=== PATIENT | female | born 1995 | race Caucasian/White ===

== ENCOUNTER 2023-01-08 12:28 | Outpatient (OUT) | payer BC, SELFPAY ==
--- NOTE | 2023-01-08 13:00 | US_ITS ---
[address] [address] Patient Name: CURRY FERRARA MRN: [id number] date: 1995 Sex: F Assigned Patient Location: US Current Patient Location: US Accession/Order Number: [id number] Exam Date: 01/08/2023 12:30 Report Date: 01/08/2023 15:22 At the request of: JACLYN DODSON Procedure: US OB transvaginal EXAMINATION: US OB transvaginal HISTORY: DATING COMPARISON: No relevant comparison available. FINDINGS: [place] intrauterine gestation Gestational sac: 4.7 cm, 10 weeks 2 days CRL: 2.3 cm, 9 weeks 0 days Yolk sac: 4.8 mm cardiac activity: Not observed Cervix: Closed, 4.8 cm The uterus is normal, anteverted, anteflexed The ovaries are normal in appearance Abnormal contour of the anterior abdomen Clinical age: 9 weeks 5 days Clinical MIRIAN: 08/08/2023 Ultrasound age: 9 weeks 5 days Ultrasound MIRIAN: 08/08/[address] Dodson by the technologist US/US OB transvaginal IMPRESSION: No cardiac activity consistent with a demise Electronically authenticated by: DEANN YUEN Date: 01/08/2023 15:22
--- OUTSIDE RECORDS SUMMARY | 2023-02-10 20:00 | XMS_ITS | CCD ---
Author Name Unknown Address [address] [place] [address] Organization [facility] Care Team Providers Care Order Selector Name Role Phone Omer Mendoza Primary Care Physician [phone] Cristian Gross Attending Unavailable Omer Mendoza Attending Unavailable Cristian Gross Attending Unavailable Cristian Gross Admitting Unavailable XI LONG Attending Ariana e Cristian Gross Attending Unavailable Allergies Allergy Classification Reported Allergen(s) Allergy Type Date of Onset Reaction(s) Facility (1 source) No Known Medication Allergies; Translations: [No Known Medication Allergies] Propensity to adverse reactions (disorder) [facility] Repository Medications Current Medications Medication Drug Class(es) Dates Sig (Normalized) Sig (Original) cephalexin 500 mg oral capsule (4 sources) Cephalosporin Antibacterial Start: 10-18-2022 End: 10-25-2022 take 1 capsule by mouth every eight hours Keflex 500 mg Cap 500 mg = 1 cap(s), Oral, q8hr, X 7 day(s), # 21 cap(s), Refills(s) 0, Pharmacy: [facility]/pharmacy #[id number], 158, cm, 10/18/22 11:02:00 EDT, Height/Length Dosing, 75.2, kg, 10/18/22 11:02:00 EDT, Weight Dosing Start Date: 10/18/22 Stop Date: 10/25/22 Status: Ordered sulfamethoxazole 800 mg / trimethoprim 160 mg oral tablet (4 sources) Dihydrofolate Reductase Inhibitor Antibacterial, Sulfonamide Antimicrobial Start: 10-18-2022 End: 10-25-2022 Bactrim D.S. 800 mg-160 mg Tab 1 tab(s), Oral, BID for 7 day(s), 14 tab(s), Refill(s) 0, [id number], 158, cm, 10/18/22 11:02:00 EDT, Height/Length Dosing, 75.2, kg, 10/18/22 11:02:00 EDT, Weight Dosing Start Date: 10/18/22 Stop Date: 10/25/22 Status: Ordered Problems Problem Classification Problem Date Documented Da te Episodic/Chronic Inflammatory diseases of female pelvic organs (4 sources) Abscess of vulva; Translations: [Abscess of vulva] Onset: 10-18-2022 Episodic Other nutritional; endocrine; and metabolic disorders (3 sources) Obese class I; Translations: [Body mass index (BMI) 30.0-30.9, adult] Onset: 10-18-2022 Chronic Other nutritional; endocrine; and metabolic disorders (1 source) Body mass index 30+ - obesity 10-22-2022 Chronic Results Test Name Value Interpretation Reference Range Facil ity Auth for Release of Medical Recordson 11-19-2022 Auth for Release of Medical Records [id number] Normal [facility] Family Medicine Office/Clini c Noteon 10-22-2022 Family Medicine Office/Clinic Note Chief Complaint EST- f/u for abscess HPI Staff Curry is a 27 year old female here for a 2 day follow up- pt say Cristian abscess on left side of vagina abscess is way better packing fell off last night no current complaints History of Present Illness Reviewed and agree with above documented HPI by medical laboratory technologist. Portions of this record may have been created with voice recognition artificial intelligence software, specifically [employer], [employer] and or [employer]. Substitutions may have occurred due to the inherent limitations of voice recognition and artificial intelligence software. Patient is a 27-year-old female presents to convenient care, for follow-up appointment, patient was seen on October 20, 2022, 2 days ago here in convenient care, for an I&D abscess of a left vulva/Bartholin's cyst, patient is currently on Bactrim DS and Keflex, had a packing placed, was informed that the packing will probably fall off on its own, patient states she has been doing fine, has not noticed any additional drainage or bleeding, pain has gone down, states she is feeling much better. Patient denies any fevers, chills, nausea, vaginal pain, vaginal discharge, vaginal bleeding, pelvic pain, abdominal pain, diarrhea, or UTI symptoms. Review of Systems PHQ Score Initial Depression Screen Score: 0 Physical Exam Vitals & Measurements T: 36.7 ?C(Oral) HR: 95(Peripheral) BP: 106/68 SpO2: 99% HT: 62 in HT: 158 cm WT: 74.4 kg WT: 163.68 lb BMI: 29.8 General: Well developed, well nourished, in no acute distress patient does not appear ill or septic, no respiratory disorder, answers questions appropriately and in complete sentences, and follows commands appropriately. Head/Face: Normocephalic/atraumatic no upper respiratory infection. Lungs: Normal respiratory effort and clear to auscultation throughout, no wheezing, no rales Cardio: regular rate and rhythm, no murmur Pulses: Normal capillary refill Abdomen: soft, nondistended, BS normal and active x4. Denies tenderness with palpation, no guarding, rebound, acute abdomen, suprapubic pressure, left or right CVA tenderness, or lumbar back pain on examination. : RT Yarelis/MA was healthcare educator during the exam. Status post I&D of the left vulva healing well, there is no packing in place, some discomfort on exam, no worsening pain, there is no red streaks, drainage, bleeding, or cellulitis is noted. No other abscesses are noted. It is nonfluctuant. Between 2 to 3 cm. Patient tolerated exam well. The remaining exam was within normal limits. No vaginal vault or cervical swabs were indicated at this time. Extremity: No clubbing, cyanosis, edema, or deformity, with normal ROM in both upper and lower bilateral extremities Neurologic: Grossly normal Skin: No rashes, ulcerations, or suspicious lesions Lymph Nodes: no lad Mental Status: Alert and oriented x3. Normal mood and affect Assessment/Plan 27-year-old female presented to [facility], for status post I&D abscess of left vulva, that was done 2 days ago, here in the convenient care, patient had a packing in place, follow-up, patient had no complaints of pain, I&D site was healing well, no signs of gastric cellulitis, additional drainage or bleeding, some discomfort on exam, but not tenderness. Patient tolerated procedure well. The remaining exam was within normal limits. Patient was instructed to continue taking her Bactrim and Keflex as previously prescribed, counter pain medication as needed, and continue with wound care instructions. Patient agreed with the plan. 1. Abscess of vulva (N76.4: Abscess of vulva) See above 2. BMI 30.0-30.9,adult (Z68.30: Body mass index [BMI] 30.0-30.9, adult) The standard range for ages 18 and older is >=18.5 and < 25 kg/m2. Your BMI today was above this range, this falls in the overweight to obese category and there are medical benefits to weight loss. We can offer counselling, referral, and/or medical support in addressing this problem. Your BMI and weight management will be followed at subsequent visits. Orders: Body Mass Index (BMI) documented 3008F Follow-up With When Contact Information Omer Mendoza MD, [facility], MED Additional Instructions: Patient Education BMI for Adults Skin Abscess, Rnrt-aa-Cxjh Problem List/Past Medical History Ongoing Abscess of vulva BMI 30.0-30.9,adult Historical No qualifying data Medications Bactrim D.S. 800 mg-160 mg Tab, 1 tab(s), Oral, BID Keflex 500 mg Cap, 500 mg= 1 cap(s), Oral, q8hr Allergies No Known Allergies No Known Medication Allergies Social History Tobacco - Denies Tobacco Use, 10/18/2022 Never (less than 100 in lifetime) Tobacco Use:. Never Smokeless Tobacco Use:., 10/20/2022 Immunizations Vaccine Date Status Comments SARS-CoV-2 mRNA (miya 5y-11y) vac - Not Given Postpone due to refusal Normal [facility] Comment on above: Result Comment: Elec tronically Signed By: MERCEDES LAYNE, ESTRELLA\.br\Date and Time Signed: 10/22/22 09:40 EDT Patient Educationon 10-23-19 Patient Education Infectious Disease Skin Abscess A skin abscess is an infected area of your skin that contains pus and other material. An abscess can happen in any part of your body. Some abscesses break open (rupture) on their own. Most continue to get worse unless they are treated. The infection can spread deeper into the body and into your blood, which can make you feel sick. A skin abscess is caused by germs that enter the skin through a cut or scrape. It can also be caused by blocked oil and sweat glands or infected hair follicles. This condition is usually treated by: ? Draining the pus. ? Taking antibiotic medicines. ? Placing a warm, wet washcloth over the abscess. Follow these instructions at home: Medicines ? Take qwca-hug-hzfezlo and prescription medicines only as told by your doctor. ? If you were prescribed an antibiotic medicine, take it as told by your doctor. Do not stop taking the antibiotic even if you start to feel better. Abscess care ? If you have an abscess that has not drained, place a warm, clean, wet washcloth over the abscess several times a day. Do this as told by your doctor. ? Follow instructions from your doctor about how to take care of your abscess. Make sure you: ? Cover the abscess with a bandage (dressing). ? Change your bandage or gauze as told by your doctor. ? Wash your hands with soap and water before you change the bandage or gauze. If you cannot use soap and water, use hand satellite tv technician. ? Check your abscess every day for signs that the infection is getting worse. Check for: ? More redness, swelling, or pain. ? More fluid or blood. ? Warmth. ? More pus or a bad smell. General instructions ? To avoid spreading the infection: ? Do not share personal care items, towels, or hot tubs with others. ? Avoid making udmb-og-sism contact with other people. ? Keep all follow-up visits as told by your doctor. This is important. Contact a doctor if: ? You have more redness, swelling, or pain around your abscess. ? You have more fluid or blood coming from your abscess. ? Your abscess feels warm when you touch it. ? You have more pus or a bad smell coming from your abscess. ? Your muscles ache. ? You feel sick. Get help right away if: ? You have very bad (severe) pain. ? You see red streaks on your skin spreading away from the abscess. ? You see redness that spreads quickly. ? You have a fever or chills. Summary ? A skin abscess is an infected area of your skin that contains pus and other material. ? The abscess is caused by germs that enter the skin through a cut or scrape. It can also be caused by blocked oil and sweat glands or infected hair follicles. ? Follow your doctor's instructions on caring for your abscess, taking medicines, preventing infections, and keeping follow-up visits. This information is not intended to replace advice given to you by your health care provider. Make sure you discuss any questions you have with your health care provider. Document Revised: 11/18/2021 Document Reviewed: 11/18/2021 [employer] Patient Education ? 2022 [employer]. Nutrition BMI for Adults What is BMI? Body mass index (BMI) is a number that is calculated from a person's weight and height. BMI can help estimate how much of a person's weight is composed of fat. BMI does not measure body fat directly. Rather, it is an alternative to procedures that directly measure body fat, which can be difficult and expensive. BMI can help identify people who may be at higher risk for certain medical problems. What are BMI measurements used for? BMI is used as a screening tool to identify possible weight problems. It helps determine whether a person is obese, overweight, a healthy weight, or underweight. BMI is useful for: ? Identifying a weight problem that may be related to a medical condition or may increase the risk for medical problems. ? Promoting changes, such as changes in diet and exercise, to help reach a healthy weight. BMI screening can be repeated to see if these changes are working. How is BMI calculated? BMI involves measuring your weight in relation to your height. Both height and weight are measured, and the BMI is calculated from those numbers. This can be done either in [place] ([place] or metric measurements. Note that charts and online BMI calculators are available to help you find your BMI quickly and easily without having to do these calculations yourself. To calculate your BMI in [place] ([place] measurements: 1. Measure your weight in pounds (lb). 2. Multiply the number of pounds by 703. ? For example, for a person who weighs 180 lb, multiply that number by 703, which equals 126,540. 3. Measure your height in inches. Then multiply that number by itself to get a measurement called inches squared. ? For example, for a person who is (more content not included)... Normal [facility] Family Medicine Office/Clini c Noteon 10-20-2022 Family Medicine Office/Clinic Note Chief Complaint EST boil on vulva HPI Staff 27 year old female presents with a vaginal lump that is not getting better was here on thursday and says its getting worse states it is now to the point where she cant do her daily activities with children History of Present Illness I have reviewed and verified the staff HPI to be accurate for this encounter. Portions of this record have been created with voice recognition software. Occasional wrong-word or ?gvxpj-o-hkxv? substitutions may have occurred due to the inherent limitations of voice recognition software. 27 yo female [facility] with chief complaint of vaginal lump on the left side. Patient was initially seen and evaluated by myself x2 days ago at that time treated for a left vulvar cellulitis/early abscess, that did not require I&D with Bactrim and Keflex. Patient states pain has continued to increase and she feels like the area is still larger. Believes she may have developed an abscess at this time. She denies fever chills or weakness. States however she is tearful it is affecting things and she cannot play with her kids this weekend difficulty sitting. She has no other concerns at this time. Review of Systems PHQ Score Initial Depression Screen Score: 0 ROS negative unless otherwise stated in HPI. Physical Exam Vitals & Measurements T: 37 ?C(Oral) HR: 100(Peripheral) BP: 102/72 SpO2: 98% HT: 62 in HT: 158 cm WT: 74.9 kg WT: 164.78 lb BMI: 30 General: Well developed, well nourished, in no acute distress Eyes: not assessed Ears: not assessed Nose: not addressed Mouth: not assessed Neck: not assessed Lungs: Lung sounds are clear bilaterally. No wheezing rhonchi or crackles on exam. Cardio: S1, S2, regular rhythm, no murmurs gallops or rubs. Abdomen: not assessed Genitourinary: On exam the external genitalia patient still with redness of the left vulva about 3 cm in length. There appears to have been a developed abscess at the base of the vulva most likely a Bartholin cyst. Area is tender to touch, induration around area of central fluctuance about 1 cm in diameter. area of abscess about 2-3 cm in diameter. Musculoskeletal: not assessed Extremity: not assessed Neurologic: not assessed Skin: See genitourinary Mental Status: Alert and oriented x3. Normal mood and affect Procedure Patient has an abscess which appears to be a Bartholin cyst at the left vulva base. This area was cleansed thoroughly with povidone iodine, I then used a total of 5 cc of 1% lidocaine plain for local anesthetic in which patient tolerated well. I then took an 11 blade to make an incision at the area of most fluctuance in which a moderate amount of puslike drainage and minimal bleeding drained from the abscess. This was copiously irrigated with 250 cc of normal saline. This was then packed with about 2 to 3 inches of iodoform gauze. Plain gauze dressing used over the area tucked in between the vulva. Procedure was completed by myself with DYANA Fisher, at the bedside. Wound culture was obtained and will be sent to lab. Procedure took approximately 25 to 30 minutes from start to finish Assessment/Plan 1. Abscess of vulva (N76.4: Abscess of vulva) Abscess indurated throughout with flutuance. Area I&D'd in office (numbed with 1% lidocaine and small incision made)- cx obtained, moderate amount of pus like drainage removed, packed with 2-3 inches of sterile packing. Will countinue both Bactrim and Keflex antibiotics started on 10/18/22. Finish course. Keep area clean and dry. Warm compresses encouraged TID-QID to facilitate drainage. PRN tylenol/ibuprofen for pain. Return in about 2 days for recheck, and packing removal. Sooner if significantly worsening. Patient verbalized understanding of treatment plan. Ordered: Wound Culture 2. BMI 30.0-30.9,adult (Z68.30: Body mass index [BMI] 30.0-30.9, adult) The standard range for ages 18 and older is >=18.5 and < 25 kg/m2. Your BMI today was above this range, this falls in the overweight to obese category and there are medical benefits to weight loss. We can offer counselling, referral, and/or medical support in addressing this problem. Your BMI and weight management will be followed at subsequent visits. Follow-up With When Contact Information Omer Mendoza MD, [facility], MED Additional Instructions: Patient Education BMI for Adults Incision and Drainage, Care After Skin Abscess, Gzct-pf-Dfmu Problem List/Past Medical History Ongoing No chronic problems Historical No qualifying data Medications Bactrim D.S. 800 mg-160 mg Tab, 1 tab(s), Oral, BID Keflex 500 mg Cap, 500 mg= 1 cap(s), Oral, q8hr Allergies No Known Allergies No Known Medication Allergies Social History Tobacco - Denies Tobacco Use, 10/18/2022 Never (less than 100 in lifetime) Tobacco Use:. Never Smokeless Tobacco Use:., 10/20/2022 Immunizations Vaccine Date Status Comments SARS-CoV-2 mRNA (tozinameran 5y-11y) vac - Not Given Po (more content not included)... Normal [facility] Comment on above: Result Comment: Elec tronically Signed By: Renato LAYNE, Cristian Wilson\.br\Date and Time Signed: 10/20/22 11:48 EDT No Panel InformationOrdered By: Jami Buck on 10-20-2022 GS 3+ White Blood Cells Occasional Gram Negative Rods [facility] Patient Educationon 10-21-19 Patient Education Infectious Disease Incision and Drainage, Care After This sheet gives you information about how to care for yourself after your procedure. Your health care provider may also give you more specific instructions. If you have problems or questions, contact your health care provider. What can I expect after the procedure? After the procedure, it is common to have: ? Pain or discomfort around the incision site. ? Blood, fluid, or pus (drainage) from the incision. ? Redness and firm skin around the incision site. Follow these instructions at home: Medicines ? Take magw-uka-lbxpqtq and prescription medicines only as told by your health care provider. ? If you were prescribed an antibiotic medicine, use or take it as told by your health care provider. Do not stop using the antibiotic even if you start to feel better. Wound care Follow instructions from your health care provider about how to take care of your wound. Make sure you: ? Wash your hands with soap and water before and after you change your bandage (dressing). If soap and water are not available, use hand satellite tv technician. ? Change your dressing and packing as told by your health care provider. ? If your dressing is dry or stuck when you try to remove it, moisten or wet the dressing with saline or water so that it can be removed without harming your skin or tissues. ? If your wound is packed, leave it in place until your health care provider tells you to remove it. To remove the packing, moisten or wet the packing with saline or water so that it can be removed without harming your skin or tissues. ? Leave stitches (sutures), skin glue, or adhesive strips in place. These skin closures may need to stay in place for 2 weeks or longer. If adhesive strip edges start to loosen and curl up, you may trim the loose edges. Do not remove adhesive strips completely unless your health care provider tells you to do that. Check your wound every day for signs of infection. Check for: ? More redness, swelling, or pain. ? More fluid or blood. ? Warmth. ? Pus or a bad smell. If you were sent home with a drain tube in place, follow instructions from your health care provider about: ? How to empty it. ? How to care for it at home. General instructions ? Rest the affected area. ? Do not take baths, swim, or use a hot tub until your health care provider approves. Ask your health care provider if you may take showers. You may only be allowed to take sponge baths. ? Return to your normal activities as told by your health care provider. Ask your health care provider what activities are safe for you. Your health care provider may put you on activity or lifting restrictions. ? The incision will continue to drain. It is normal to have some clear or slightly bloody drainage. The amount of drainage should lessen each day. ? Do not apply any creams, ointments, or liquids unless you have been told to by your health care provider. ? Keep all follow-up visits as told by your health care provider. This is important. Contact a health care provider if: ? Your cyst or abscess returns. ? You have more redness, swelling, or pain around your incision. ? You have more fluid or blood coming from your incision. ? Your incision feels warm to the touch. ? You have pus or a bad smell coming from your incision. ? You have red streaks above or below the incision site. Get help right away if: ? You have severe pain or bleeding. ? You cannot eat or drink without vomiting. ? You have a fever or chills. ? You have redness that spreads quickly. ? You have decreased urine output. ? You become short of breath. ? You have chest pain. ? You cough up blood. ? The affected area becomes numb or starts to tingle. These symptoms may represent a serious problem that is an emergency. Do not wait to see if the symptoms will go away. Get medical help right away. Call your local emergency services (911 in the [place] Do not drive yourself to the hospital. Summary ? After this procedure, it is common to have fluid, blood, or pus coming from the surgery site. ? Follow all home care instructions. You will be told how to take care of your incision, how to check for infection, and how to take medicines. ? If you were prescribed an antibiotic medicine, take it as told by your health care provider. Do not stop taking the antibiotic even if you start to feel better. ? Contact a health care provider if you have increased redness, swelling, or pain around your incision. Get help right away if you have chest pain, you vomit, you cough up blood, or you have shortness of breath. ? Keep all follow-up visits as told by your health care provider. This is important. This information is not intended to replace advice given to you by your health care provider. Make sure you discuss any questions you have with your health care provider. Document Revised: 11/21/2021 Document Reviewed: 11/21/2021 E (more content not included)... Normal [facility] Letter [facility] (Inserted Image. Eva ble to display) [address], [place] [address] [id number] October 20, 2022 CURRY FERRARA [address] [place] [id number] : 1995 Please excuse CURRY FERRARA from work . Date and/or Time of Absence: From: 10/20/2022 To: 10/21/2022 May return to work on: 10/21/2022 Restrictions: None Comments: Please excuse due to an acute illness. 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 Portions of this record have been created with voice recognition software. Occasional wrong-word or ?zzqqr-s-zvks? substitutions may have occurred due to the inherent limitations of voice recognition software. 27 yo female presents with cc painful left vaginal region. Patient states onset was Thursday when she notices a small pimple-like lesion at the left anterior she states that it seemed to be a little bit painful but she states over the last 2 to 3 days is to become more swollen and painful. She states the area seems to be red in color from what she can see on her own and we are she denies any vaginal discharge dysuria hematuria urinary urgency or frequency denies any pelvic pain or abdominal pain. Denies any nausea vomiting or diarrhea. Patient denies any history of abscess or Bartholin cyst in the past. Denies any history of boils. States that she does shave in the vaginal region and is sexually active. 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 Patient states she tried using jkmg-qgl-scisjcb Dermoplast with minimal relief. Has otherwise been taking Tylenol or ibuprofen as needed for pain. She has no other concerns today. Review of Systems PHQ Score Initial Depression Screen Score: 0 ROS negative unless otherwise stated in HPI. Physical Exam Vitals & Measurements T: 36.8 ?C(Oral) HR: 93(Peripheral) BP: 124/82 SpO2: 99% HT: 62 in HT: 158 cm WT: 75.2 kg WT: 165.44 lb BMI: 30.12 General: Obese female, very pleasant, no acute distress Eyes: not assessed Ears: not assessed Nose: not addressed Mouth: not assessed Neck: not assessed Lungs: Lung sounds are clear bilaterally. No wheezing rhonchi or crackles on exam. Cardio: S1, S2, regular rhythm. No murmurs gallops or rubs. Abdomen: not assessed Genitourinary: Pt has some swelling at the left vulva, erythema from the base of the left vulva extends superior about 4 cm. There is minimal induration at the inside of the left vulva at the base. No central fluctuance. Concern for cellulitis of the left vulva, boil/developing abscess. Otherwise normal external genitalia. Musculoskeletal: not assessed Extremity: not assessed Neurologic: not assessed Skin: see genitourinary note Mental Status: Alert and oriented x3. Normal mood and affect Assessment/Plan 1. Boil of vulva (N76.4: Abscess of vulva) Boil indurated throughout without flutuance. Not ready or appropriate for I&D at this time. Will treat with keflex tid x 7 days, bactrim bid x 7 days, given cellulitic appearance of left vulva. Finish course. Keep area clean and dry. Warm compressed encouraged TID-QID to facilitate drainage. PRN tylenol/ibuprofen for pain. Follow up with PCP in about 3-5 days for recheck, sooner if significantly worsening. Patient verbalized understanding of treatment plan. Ordered: cephalexin, 500 mg = 1 cap(s), Oral, q8hr, X 7 day(s), # 21 cap(s), Refills(s) 0, Pharmacy: [facility] #[id number], 158, cm, 10/18/22 11:02:00 EDT, Height/Length Dosing, 75.2, kg, 10/18/22 11:02:00 EDT, Weight Dosing sulfamethoxazole-trimethoprim, 1 tab(s), Oral, BID for 7 day(s), 14 tab(s), Refill(s) 0, [id number], 158, cm, 10/18/22 11:02:00 EDT, Height/Length Dosing, 75.2, kg, 10/18/22 11:02:00 EDT, Weight Dosing 2. BMI 30.0-30.9,adult (Z68.30: Body mass index [BMI] 30.0-30.9, adult) The standard range for ages 18 and older is >=18.5 and < 25 kg/m2. Your BMI today was above this range, this falls in the overweight to obese category and there are medical benefits to weight loss. We can offer counselling, referral, and/or medical support in addressing this problem. Your BMI and weight management will be followed at subsequent visits. Ordered: cephalexin, 500 mg = 1 cap(s), Oral, q8hr, X 7 day(s), # 21 cap(s), Refills(s) 0, Pharmacy: [id number], 158, cm, 10/18/22 11:02:00 EDT, Height/Length Dosing, 75.2, kg, 10/18/22 11:02:00 EDT, Weight Dosing sulfamethoxazole-trimethoprim, 1 tab(s), Oral, BID for 7 day(s), 14 tab(s), Refill(s) 0, [id number], 158, cm, 10/18/22 11:02:00 EDT, Height/Length Dosing, 75.2, kg, 10/18/22 11:02:00 EDT, Weight Dosing Follow-up With When Contact Information Omer Mendoza MD, [facility], MED Additional Instructions: Patient Education BMI for Adults Skin Abscess, Rbyw-if-Xbyp Problem List/Past Medical History Ongoing No chronic problems Historical No qualifying data Medications Bactrim D.S. 800 mg-160 mg Tab, 1 tab(s), Oral, BID Keflex 500 mg Cap, 500 mg= 1 cap(s), Oral, q8hr Allergies No Known Allergies No Known Medication Allergies Social History Tob (more content not included)... Normal [facility] Comment on above: Result Comment: Elec tronically Signed By: Renato LAYNE, Cristian Wilson\.br\Date and Time Signed: 10/18/22 11:50 EDT Patient Educationon 10-19-19 Patient Education Infectious Disease Skin Abscess A skin abscess is an infected area of your skin that contains pus and other material. An abscess can happen in any part of your body. Some abscesses break open (rupture) on their own. Most continue to get worse unless they are treated. The infection can spread deeper into the body and into your blood, which can make you feel sick. A skin abscess is caused by germs that enter the skin through a cut or scrape. It can also be caused by blocked oil and sweat glands or infected hair follicles. This condition is usually treated by: ? Draining the pus. ? Taking antibiotic medicines. ? Placing a warm, wet washcloth over the abscess. Follow these instructions at home: Medicines ? Take bbqc-huz-yiykaoy and prescription medicines only as told by your doctor. ? If you were prescribed an antibiotic medicine, take it as told by your doctor. Do not stop taking the antibiotic even if you start to feel better. Abscess care ? If you have an abscess that has not drained, place a warm, clean, wet washcloth over the abscess several times a day. Do this as told by your doctor. ? Follow instructions from your doctor about how to take care of your abscess. Make sure you: ? Cover the abscess with a bandage (dressing). ? Change your bandage or gauze as told by your doctor. ? Wash your hands with soap and water before you change the bandage or gauze. If you cannot use soap and water, use hand satellite tv technician. ? Check your abscess every day for signs that the infection is getting worse. Check for: ? More redness, swelling, or pain. ? More fluid or blood. ? Warmth. ? More pus or a bad smell. General instructions ? To avoid spreading the infection: ? Do not share personal care items, towels, or hot tubs with others. ? Avoid making pzyl-bg-rfru contact with other people. ? Keep all follow-up visits as told by your doctor. This is important. Contact a doctor if: ? You have more redness, swelling, or pain around your abscess. ? You have more fluid or blood coming from your abscess. ? Your abscess feels warm when you touch it. ? You have more pus or a bad smell coming from your abscess. ? Your muscles ache. ? You feel sick. Get help right away if: ? You have very bad (severe) pain. ? You see red streaks on your skin spreading away from the abscess. ? You see redness that spreads quickly. ? You have a fever or chills. Summary ? A skin abscess is an infected area of your skin that contains pus and other material. ? The abscess is caused by germs that enter the skin through a cut or scrape. It can also be caused by blocked oil and sweat glands or infected hair follicles. ? Follow your doctor's instructions on caring for your abscess, taking medicines, preventing infections, and keeping follow-up visits. This information is not intended to replace advice given to you by your health care provider. Make sure you discuss any questions you have with your health care provider. Document Revised: 11/18/2021 Document Reviewed: 11/18/2021 [employer] Patient Education ? 2022 [employer]. Nutrition BMI for Adults What is BMI? Body mass index (BMI) is a number that is calculated from a person's weight and height. BMI can help estimate how much of a person's weight is composed of fat. BMI does not measure body fat directly. Rather, it is an alternative to procedures that directly measure body fat, which can be difficult and expensive. BMI can help identify people who may be at higher risk for certain medical problems. What are BMI measurements used for? BMI is used as a screening tool to identify possible weight problems. It helps determine whether a person is obese, overweight, a healthy weight, or underweight. BMI is useful for: ? Identifying a weight problem that may be related to a medical condition or may increase the risk for medical problems. ? Promoting changes, such as changes in diet and exercise, to help reach a healthy weight. BMI screening can be repeated to see if these changes are working. How is BMI calculated? BMI involves measuring your weight in relation to your height. Both height and weight are measured, and the BMI is calculated from those numbers. This can be done either in [place] ([place] or metric measurements. Note that charts and online BMI calculators are available to help you find your BMI quickly and easily without having to do these calculations yourself. To calculate your BMI in [place] ([place] measurements: 1. Measure your weight in pounds (lb). 2. Multiply the number of pounds by 703. ? For example, for a person who weighs 180 lb, multiply that number by 703, which equals 126,540. 3. Measure your height in inches. Then multiply that number by itself to get a measurement called inches squared. ? For example, for a person who is (more content not included)... Normal [facility] Vital Signs Date Time Vital Sign Value Performing Clinician Facility 10-22-2022 09:02-0400 Blood Pressure Location ESTRELLA LONG [facility] 10-22-2022 09:02-0400 Body temperature 98.06 [degF] [facility] 10-22-2022 09:02-0400 Diastolic blood pressure 68 mm[Hg] [facility] 10-22-2022 09:02-0400 Heart rate 95 /min [facility] 10-22-2022 09:02-0400 SaO2% (BldA) [Mass fraction] 99 % [facility] 10-22-2022 09:02-0400 Systolic blood pressure 106 mm[Hg] [facility] 10-20-2022 09:25-0400 Body temperature 98.6 [degF] Cristian Gross [facility] 10-20-2022 09:25-0400 Diastolic blood pressure 72 mm[Hg] Cristian Gross [facility] 10-20-2022 09:25-0400 Heart rate 100 /min Cristian Grsos [facility] 10-20-2022 09:25-0400 SaO2% (BldA) [Mass fraction] 98 % Cristian Gross [facility] 10-20-2022 09:25-0400 Systolic blood pressure 102 mm[Hg] Cristian Gross [facility] 08-26-2023 10:58-0400 Blood Pressure Location Cristianngozi Sepulvedaey [facility] 10-18-2022 10:58-0400 Body temperature 98.24 [degF] Cristianngozi Sepulvedaey [facility] 10-18-2022 10:58-0400 Diastolic blood pressure 82 mm[Hg] Cristianngozi Sepulvedaey [facility] 10-18-2022 10:58-0400 Heart rate 93 /min Cristian Renato [facility] 10-18-2022 10:58-0400 SaO2% (BldA) [Mass fraction] 99 % Cristian Renato [facility] 10-18-2022 10:58-0400 Systolic blood pressure 124 mm[Hg] Cristianngozi Sepulvedaey [facility] Encounters Encounter Date Encounter Type Care Provider Facility Start: 10-22-2022 End: 10-23-2022 ambulatory PA-C ESTRELLA LONG Facility:[facility] Start: 10-22-2022 End: 10-22-2022 Patient encounter procedure ESTRELLA LONG [facility] Start: 10-20-2022 End: 10-21-2022 ambulatory Cristian Gross Facility:[facility] Start: 10-20-2022 End: 10-20-2022 Lab Drop off Cristian Gross [facility] Start: 10-20-2022 End: 10-20-2022 Patient encounter procedure Cristian Gross [facility] Start: 10-18-2022 End: 10-19-2022 ambulatory Cristian Gross Facility:[facility] Start: 10-18-2022 End: 10-18-2022 Patient encounter procedure Cristianngozi Gross [facility] Start: 09-01-2022 End: 09-02-2022 [facility] Start: 09-01-2022 End: 09-01-2022 [facility] Start: 08-20-2022 ambulatory Cristian Gonzalezpsey Facility: [facility] Immunizations Immunization Date Immunization Notes Care Provider Nicolas eubanks NEGATED: Highlighted row has not occurred!10-18-2022 SARS-CoV-2 mRNA (tozinameran 5y-11y) vaccine Cristian Gross [facility] Payers Date Payer Category Payer Unknown [id number] 1995 Unknown [id number] [id number] 1995 Unknown [id number] 1995 Unknown [id number] [id number] [id number] 1995 Unknown [id number] [id number] 1995 Unknown [id number] Social History Date Type Detail Facility Tobacco smoking status No Smokin g Status Entered [facility] Sex Assigned At Female [facility] Start: 10-18-2022 End: 10-20-2022 Tobacco smoking status Never smoked tobacco (finding) [facility] Tobacco smoking status Never [facility] Functional Status Date Assessment Result Facility 10-22-2022 Functional Status N/A [facility] 10-20-2022 Functional Status N/A [facility] 10-18-2022 Functional Status N/A [facility] Clinical Note 10-22-2022 Note Date & Type Note Facility 10-22-2022 Note Microbiology PROCEDURE: Wound Culture [R1] SOURCE: Wound BODY SITE: Vulva COLLECTED DATE/TIME: 10/20/2022 10:16 EDT RECEIVED DATE/TIME: 10/20/2022 11:58 EDT START DATE/TIME: 10/20/2022 11:58 EDT FREE TEXT SOURCE: Renato LAYNE, Cristian Gross PA-C, Cristian Fajardo. FINAL REPORTS Final Report [] Verified Date/Time: 10/22/2022 12:35 EDT 1+ Bacteroides species Presumptive isolated. 1+ Propionibacterium species Presumptive isolated. STAINS Gram Stain Report [] Verified Date/Time: 10/20/2022 16:47 EDT 3+ White Blood Cells Occasional Gram Negative Rods Performing Locations R1: This test was performed at: [facility], [address] [place] [address], [facility] , , [facility] Comment on above: Performed By: #### [id number] #### [facility] [address] [place] [address] Hospital Discharge instructions 10-22-2022 Note Date & Type Note Facility 10-22-2022 Hospital Discharg e instructions Patient Education 10/22/2022 09:39:12 BMI for Adults BMI for Adults What is BMI? Body mass index (BMI) is a number that is calculated from a person's weight and height. BMI can help estimate how much of a person's weight is composed of fat. BMI does not measure body fat directly. Rather, it is an alternative to procedures that directly measure body fat, which can be difficult and expensive. BMI can help identify people who may be at higher risk for certain medical problems. What are BMI measurements used for? BMI is used as a screening tool to identify possible weight problems. It helps determine whether a person is obese, overweight, a healthy weight, or underweight. BMI is useful for: Identifying a weight problem that may be related to a medical condition or may increase the risk for medical problems. Promoting changes, such as changes in diet and exercise, to help reach a healthy weight. BMI screening can be repeated to see if these changes are working. How is BMI calculated? BMI involves measuring your weight in relation to your height. Both height and weight are measured, and the BMI is calculated from those numbers. This can be done either in [place] (U.S[place] or metric measurements. Note that charts and online BMI calculators are available to help you find your BMI quickly and easily without having to do these calculations yourself. To calculate your BMI in [place] ([place].S[place] measurements: 1.Measure your weight in pounds (lb). 2.Multiply the number of pounds by 703. For example, for a person who weighs 180 lb, multiply that number by 703, which equals 126,540. 3.Measure your height in inches. Then multiply that number by itself to get a measurement called inches squared. For example, for a person who is 70 inches tall, the inches squared measurement is 70 inches x 70 inches, which equals 4,900 inches squared. 4.Divide the total from step 2 (number of lb x 703) by the total from step 3 (inches squared): 126,540 4,900 = 25.8. This is your BMI. To calculate your BMI in metric measurements: 1.Measure your weight in kilograms (kg). 2.Measure your height in meters (m). Then multiply that number by itself to get a measurement called meters squared. For example, for a person who is 1.75 m tall, the meters squared measurement is 1.75 m x 1.75 m, which is equal to 3.1 meters squared. 3.Divide the number of kilograms (your weight) by the meters squared number. In this example: 70 3.1 = 22.6. This is your BMI. What do the results mean? BMI charts are used to identify whether you are underweight, normal weight, overweight, or obese. The following guidelines will be used: Underweight: BMI less than 18.5. Normal weight: BMI between 18.5 and 24.9. Overweight: BMI between 25 and 29.9. Obese: BMI of 30 or above. Keep these notes in mind: Weight includes both fat and muscle, so someone with a muscular build, such as an athlete, may have a BMI that is higher than 24.9. In cases like these, BMI is not an accurate measure of body fat. To determine if excess body fat is the cause of a BMI of 25 or higher, further assessments may need to be done by a health care provider. BMI is usually interpreted in the same way for men and women. Where to find more information For more information about BMI, including tools to quickly calculate your BMI, go to these websites: Centers for Disease Control and Prevention: www.cdc.gov [place] Heart [employer]: www.heart.org National Heart, Lung, and Blood [employer]: www.nhlbi.nih.gov Summary Body mass index (BMI) is a number that is calculated from a person's weight and height. BMI may help estimate how much of a person's weight is composed of fat. BMI can help identify those who may be at higher risk for certain medical problems. BMI can be measured using Turkish measurements or metric measurements. BMI charts are used to identify whether you are underweight, normal weight, overweight, or obese. This information is not intended to replace advice given to you by your health care provider. Make sure you discuss any questions you have with your health care provider. Document Revised: 11/02/2019 Document Reviewed: 09/09/2019 [employer] Patient Education 2022 [employer]. 10/22/2022 09:39:10 Skin Abscess, Hgls-rd-Ampy Skin Abscess A skin abscess is an infected area of your skin that contains pus and other material. An abscess can happen in any part of your body. Some abscesses break open (rupture) on their own. Most continue to get worse unless they are treated. The infection can spread deeper into the body and into your blood, which can make you feel sick. A skin abscess is caused by germs that enter the skin through a cut or scrape. It can also be caused by blocked oil and sweat glands or infected hair follicles. This condition is usually treated by: Draining the pus. Taking antibiotic medicines. Placing a warm, wet washcloth over the abscess. Follow these instructions at home: Medicines Take jtcv-jme-fwmtjcu and prescription medicines only as told by your doctor. If you were prescribed an antibiotic medicine, take it as told by your doctor. Do not stop taking the antibiotic even if you start to feel better. Abscess care If you have an abscess that has not drained, place a warm, clean, wet washcloth over the abscess several times a day. Do this as told by your doctor. Follow instructions from your doctor about how to take care of your abscess. Make sure you: ?Cover the abscess with a bandage (dressing). ?Change your bandage or gauze as told by your doctor. ?Wash your hands with soap and water before you change the bandage or gauze. If you cannot use soap and water, use hand satellite tv technician. Check your abscess every day for signs that the infection is getting worse. Check for: ?More redness, swelling, or pain. ?More fluid or blood. ?Warmth. ?More pus or a bad smell. General instructions To avoid spreading the infection: ?Do not share personal care items, towels, or hot tubs with others. ?Avoid making tqln-ey-wzse contact with other people. Keep all follow-up visits as told by your doctor. This is important. Contact a doctor if: You have more redness, swelling, or pain around your abscess. You have more fluid or blood coming from your abscess. Your abscess feels warm when you touch it. You have more pus or a bad smell coming from your abscess. Your muscles ache. You feel sick. Get help right away if: You have very bad (severe) pain. You see red streaks on your skin spreading away from the abscess. You see redness that spreads quickly. You have a fever or chills. Summary A skin abscess is an infected area of your skin that contains pus and other material. The abscess is caused by germs that enter the skin through a cut or scrape. It can also be caused by blocked oil and sweat glands or infected hair follicles. Follow your doctor's instructions on caring for your abscess, taking medicines, preventing infections, and keeping follow-up visits. This information is not intended to replace advice given to you by your health care provider. Make sure you discuss any questions you have with your health care provider. Document Revised: 11/18/2021 Document Reviewed: 11/18/2021 [employer] Patient Education 2022 [employer] Interactive Follow Up Care 10/22/2022 08:56:37 With:Omer Mendoza MD, [facility], [facility] Address:Unknown When: Unknown [facility] Discharge instructions 10-20-2022 Note Date & Type Note Facility 10-20-2022 Hospital Discharg e instructions Patient Education 10/20/2022 11:48:08 BMI for Adults BMI for Adults What is BMI? Body mass index (BMI) is a number that is calculated from a person's weight and height. BMI can help estimate how much of a person's weight is composed of fat. BMI does not measure body fat directly. Rather, it is an alternative to procedures that directly measure body fat, which can be difficult and expensive. BMI can help identify people who may be at higher risk for certain medical problems. What are BMI measurements used for? BMI is used as a screening tool to identify possible weight problems. It helps determine whether a person is obese, overweight, a healthy weight, or underweight. BMI is useful for: Identifying a weight problem that may be related to a medical condition or may increase the risk for medical problems. Promoting changes, such as changes in diet and exercise, to help reach a healthy weight. BMI screening can be repeated to see if these changes are working. How is BMI calculated? BMI involves measuring your weight in relation to your height. Both height and weight are measured, and the BMI is calculated from those numbers. This can be done either in [place] ([place] or metric measurements. Note that charts and online BMI calculators are available to help you find your BMI quickly and easily without having to do these calculations yourself. To calculate your BMI in [place] ([place] measurements: 1.Measure your weight in pounds (lb). 2.Multiply the number of pounds by 703. For example, for a person who weighs 180 lb, multiply that number by 703, which equals 126,540. 3.Measure your height in inches. Then multiply that number by itself to get a measurement called inches squared. For example, for a person who is 70 inches tall, the inches squared measurement is 70 inches x 70 inches, which equals 4,900 inches squared. 4.Divide the total from step 2 (number of lb x 703) by the total from step 3 (inches squared): 126,540 4,900 = 25.8. This is your BMI. To calculate your BMI in metric measurements: 1.Measure your weight in kilograms (kg). 2.Measure your height in meters (m). Then multiply that number by itself to get a measurement called meters squared. For example, for a person who is 1.75 m tall, the meters squared measurement is 1.75 m x 1.75 m, which is equal to 3.1 meters squared. 3.Divide the number of kilograms (your weight) by the meters squared number. In this example: 70 3.1 = 22.6. This is your BMI. What do the results mean? BMI charts are used to identify whether you are underweight, normal weight, overweight, or obese. The following guidelines will be used: Underweight: BMI less than 18.5. Normal weight: BMI between 18.5 and 24.9. Overweight: BMI between 25 and 29.9. Obese: BMI of 30 or above. Keep these notes in mind: Weight includes both fat and muscle, so someone with a muscular build, such as an athlete, may have a BMI that is higher than 24.9. In cases like these, BMI is not an accurate measure of body fat. To determine if excess body fat is the cause of a BMI of 25 or higher, further assessments may need to be done by a health care provider. BMI is usually interpreted in the same way for men and women. Where to find more information For more information about BMI, including tools to quickly calculate your BMI, go to these websites: Centers for Disease Control and Prevention: www.cdc.gov [place] Heart Association: www.heart.org National Heart, Lung, and Blood Golf: www.nhlbi.nih.gov Summary Body mass index (BMI) is a number that is calculated from a person's weight and height. BMI may help estimate how much of a person's weight is composed of fat. BMI can help identify those who may be at higher risk for certain medical problems. BMI can be measured using Turkish measurements or metric measurements. BMI charts are used to identify whether you are underweight, normal weight, overweight, or obese. This information is not intended to replace advice given to you by your health care provider. Make sure you discuss any questions you have with your health care provider. Document Revised: 11/02/2019 Document Reviewed: 09/09/2019 [employer] Patient Education 2022 [email or web address]. 10/20/2022 11:48:05 Incision and Drainage, Care After Incision and Drainage, Care After This sheet gives you information about how to care for yourself after your procedure. Your health care provider may also give you more specific instructions. If you have problems or questions, contact your health care provider. What can I expect after the procedure? After the procedure, it is common to have: Pain or discomfort around the incision site. Blood, fluid, or pus (drainage) from the incision. Redness and firm skin around the incision site. Follow these instructions at home: Medicines Take nawo-fbn-zmxbxqb and prescription medicines only as told by your health care provider. If you were prescribed an antibiotic medicine, use or take it as told by your health care provider. Do not stop using the antibiotic even if you start to feel better. Wound care Follow instructions from your health care provider about how to take care of your wound. Make sure you: Wash your hands with soap and water before and after you change your bandage (dressing). If soap and water are not available, use hand satellite tv technician. Change your dressing and packing as told by your health care provider. ?If your dressing is dry or stuck when you try to remove it, moisten or wet the dressing with saline or water so that it can be removed without harming your skin or tissues. ?If your wound is packed, leave it in place until your health care provider tells you to remove it. To remove the packing, moisten or wet the packing with saline or water so that it can be removed without harming your skin or tissues. Leave stitches (sutures), skin glue, or adhesive strips in place. These skin closures may need to stay in place for 2 weeks or longer. If adhesive strip edges start to loosen and curl up, you may trim the loose edges. Do not remove adhesive strips completely unless your health care provider tells you to do that. Check your wound every day for signs of infection. Check for: More redness, swelling, or pain. More fluid or blood. Warmth. Pus or a bad smell. If you were sent home with a drain tube in place, follow instructions from your health care provider about: How to empty it. How to care for it at home. General instructions Rest the affected area. Do not take baths, swim, or use a hot tub until your health care provider approves. Ask your health care provider if you may take showers. You may only be allowed to take sponge baths. Return to your normal activities as told by your health care provider. Ask your health care provider what activities are safe for you. Your health care provider may put you on activity or lifting restrictions. The incision will continue to drain. It is normal to have some clear or slightly bloody drainage. The amount of drainage should lessen each day. Do not apply any creams, ointments, or liquids unless you have been told to by your health care provider. Keep all follow-up visits as told by your health care provider. This is important. Contact a health care provider if: Your cyst or abscess returns. You have more redness, swelling, or pain around your incision. You have more fluid or blood coming from your incision. Your incision feels warm to the touch. You have pus or a bad smell coming from your incision. You have red streaks above or below the incision site. Get help right away if: You have severe pain or bleeding. You cannot eat or drink without vomiting. You have a fever or chills. You have redness that spreads quickly. You have decreased urine output. You become short of breath. You have chest pain. You cough up blood. The affected area becomes numb or starts to tingle. These symptoms may represent a serious problem that is an emergency. Do not wait to see if the symptoms will go away. Get medical help right away. Call your local emergency services (911 in the [place] Do not drive yourself to the hospital. Summary After this procedure, it is common to have fluid, blood, or pus coming from the surgery site. Follow all home care instructions. You will be told how to take care of your incision, how to check for infection, and how to take medicines. If you were prescribed an antibiotic medicine, take it as told by your health care provider. Do not stop taking the antibiotic even if you start to feel better. Contact a health care provider if you have increased redness, swelling, or pain around your incision. Get help right away if you have chest pain, you vomit, you cough up blood, or you have shortness of breath. Keep all follow-up visits as told by your health care provider. This is important. This information is not intended to replace advice given to you by your health care provider. Make sure you discuss any questions you have with your health care provider. Document Revised: 11/21/2021 Document Reviewed: 11/21/2021 [employer] Patient Education 2022 [employer]. 10/20/2022 11:48:04 Skin Abscess, Dawp-cx-Hulz Skin Abscess A skin abscess is an infected area of your skin that contains pus and other material. An abscess can happen in any part of your body. Some abscesses break open (rupture) on their own. Most continue to get worse unless they are treated. The infection can spread deeper into the body and into your blood, which can make you feel sick. A skin abscess is caused by germs that enter the skin through a cut or scrape. It can also be caused by blocked oil and sweat glands or infected hair follicles. This condition is usually treated by: Draining the pus. Taking antibiotic medicines. Placing a warm, wet washcloth over the abscess. Follow these instructions at home: Medicines Take czvf-wsx-mbzfvwm and prescription medicines only as told by your doctor. If you were prescribed an antibiotic medicine, take it as told by your doctor. Do not stop taking the antibiotic even if you start to feel better. Abscess care If you have an abscess that has not drained, place a warm, clean, wet washcloth over the abscess several times a day. Do this as told by your doctor. Follow instructions from your doctor about how to take care of your abscess. Make sure you: ?Cover the abscess with a bandage (dressing). ?Change your bandage or gauze as told by your doctor. ?Wash your hands with soap and water before you change the bandage or gauze. If you cannot use soap and water, use hand satellite tv technician. Check your abscess every day for signs that the infection is getting worse. Check for: ?More redness, swelling, or pain. ?More fluid or blood. ?Warmth. ?More pus or a bad smell. General instructions To avoid spreading the infection: ?Do not share personal care items, towels, or hot tubs with others. ?Avoid making eiuo-bo-ciuu contact with other people. Keep all follow-up visits as told by your doctor. This is important. Contact a doctor if: You have more redness, swelling, or pain around your abscess. You have more fluid or blood coming from your abscess. Your abscess feels warm when you touch it. You have more pus or a bad smell coming from your abscess. Your muscles ache. You feel sick. Get help right away if: You have very bad (severe) pain. You see red streaks on your skin spreading away from the abscess. You see redness that spreads quickly. You have a fever or chills. Summary A skin abscess is an infected area of your skin that contains pus and other material. The abscess is caused by germs that enter the skin through a cut or scrape. It can also be caused by blocked oil and sweat glands or infected hair follicles. Follow your doctor's instructions on caring for your abscess, taking medicines, preventing infections, and keeping follow-up visits. This information is not intended to replace advice given to you by your health care provider. Make sure you discuss any questions you have with your health care provider. Document Revised: 11/18/2021 Document Reviewed: 11/18/2021 [employer] Patient Education 2022 [employer] Follow Up Care 10/20/2022 09:18:08 With:Omer Mendoza MD, [facility], [facility] Address:Unknown When: Unknown [facility] Discharge instructions 10-18-2022 Note Date & Type Note Facility 10-18-2022 Hospital Discharg e instructions Patient Education 10/18/2022 11:50:02 BMI for Adults BMI for Adults What is BMI? Body mass index (BMI) is a number that is calculated from a person's weight and height. BMI can help estimate how much of a person's weight is composed of fat. BMI does not measure body fat directly. Rather, it is an alternative to procedures that directly measure body fat, which can be difficult and expensive. BMI can help identify people who may be at higher risk for certain medical problems. What are BMI measurements used for? BMI is used as a screening tool to identify possible weight problems. It helps determine whether a person is obese, overweight, a healthy weight, or underweight. BMI is useful for: Identifying a weight problem that may be related to a medical condition or may increase the risk for medical problems. Promoting changes, such as changes in diet and exercise, to help reach a healthy weight. BMI screening can be repeated to see if these changes are working. How is BMI calculated? BMI involves measuring your weight in relation to your height. Both height and weight are measured, and the BMI is calculated from those numbers. This can be done either in [place] ([place] or metric measurements. Note that charts and online BMI calculators are available to help you find your BMI quickly and easily without having to do these calculations yourself. To calculate your BMI in [place] ([place] measurements: 1.Measure your weight in pounds (lb). 2.Multiply the number of pounds by 703. For example, for a person who weighs 180 lb, multiply that number by 703, which equals 126,540. 3.Measure your height in inches. Then multiply that number by itself to get a measurement called inches squared. For example, for a person who is 70 inches tall, the inches squared measurement is 70 inches x 70 inches, which equals 4,900 inches squared. 4.Divide the total from step 2 (number of lb x 703) by the total from step 3 (inches squared): 126,540 4,900 = 25.8. This is your BMI. To calculate your BMI in metric measurements: 1.Measure your weight in kilograms (kg). 2.Measure your height in meters (m). Then multiply that number by itself to get a measurement called meters squared. For example, for a person who is 1.75 m tall, the meters squared measurement is 1.75 m x 1.75 m, which is equal to 3.1 meters squared. 3.Divide the number of kilograms (your weight) by the meters squared number. In this example: 70 3.1 = 22.6. This is your BMI. What do the results mean? BMI charts are used to identify whether you are underweight, normal weight, overweight, or obese. The following guidelines will be used: Underweight: BMI less than 18.5. Normal weight: BMI between 18.5 and 24.9. Overweight: BMI between 25 and 29.9. Obese: BMI of 30 or above. Keep these notes in mind: Weight includes both fat and muscle, so someone with a muscular build, such as an athlete, may have a BMI that is higher than 24.9. In cases like these, BMI is not an accurate measure of body fat. To determine if excess body fat is the cause of a BMI of 25 or higher, further assessments may need to be done by a health care provider. BMI is usually interpreted in the same way for men and women. Where to find more information For more information about BMI, including tools to quickly calculate your BMI, go to these websites: Centers for Disease Control and Prevention: www.cdc.gov [place] [employer]: www.heart.org National Heart, Lung, and Blood Golf: www.nhlbi.nih.gov Summary Body mass index (BMI) is a number that is calculated from a person's weight and height. BMI may help estimate how much of a person's weight is composed of fat. BMI can help identify those who may be at higher risk for certain medical problems. BMI can be measured using Turkish measurements or metric measurements. BMI charts are used to identify whether you are underweight, normal weight, overweight, or obese. This information is not intended to replace advice given to you by your health care provider. Make sure you discuss any questions you have with your health care provider. Document Revised: 11/02/2019 Document Reviewed: 09/09/2019 [employer] Patient Education 2022 [employer]. 10/18/2022 11:50:00 Skin Abscess, Epzl-eq-Hiww Skin Abscess A skin abscess is an infected area of your skin that contains pus and other material. An abscess can happen in any part of your body. Some abscesses break open (rupture) on their own. Most continue to get worse unless they are treated. The infection can spread deeper into the body and into your blood, which can make you feel sick. A skin abscess is caused by germs that enter the skin through a cut or scrape. It can also be caused by blocked oil and sweat glands or infected hair follicles. This condition is usually treated by: Draining the pus. Taking antibiotic medicines. Placing a warm, wet washcloth over the abscess. Follow these instructions at home: Medicines Take knlx-svv-dnhennh and prescription medicines only as told by your doctor. If you were prescribed an antibiotic medicine, take it as told by your doctor. Do not stop taking the antibiotic even if you start to feel better. Abscess care If you have an abscess that has not drained, place a warm, clean, wet washcloth over the abscess several times a day. Do this as told by your doctor. Follow instructions from your doctor about how to take care of your abscess. Make sure you: ?Cover the abscess with a bandage (dressing). ?Change your bandage or gauze as told by your doctor. ?Wash your hands with soap and water before you change the bandage or gauze. If you cannot use soap and water, use hand satellite tv technician. Check your abscess every day for signs that the infection is getting worse. Check for: ?More redness, swelling, or pain. ?More fluid or blood. ?Warmth. ?More pus or a bad smell. General instructions To avoid spreading the infection: ?Do not share personal care items, towels, or hot tubs with others. ?Avoid making xsme-xp-rifd contact with other people. Keep all follow-up visits as told by your doctor. This is important. Contact a doctor if: You have more redness, swelling, or pain around your abscess. You have more fluid or blood coming from your abscess. Your abscess feels warm when you touch it. You have more pus or a bad smell coming from your abscess. Your muscles ache. You feel sick. Get help right away if: You have very bad (severe) pain. You see red streaks on your skin spreading away from the abscess. You see redness that spreads quickly. You have a fever or chills. Summary A skin abscess is an infected area of your skin that contains pus and other material. The abscess is caused by germs that enter the skin through a cut or scrape. It can also be caused by blocked oil and sweat glands or infected hair follicles. Follow your doctor's instructions on caring for your abscess, taking medicines, preventing infections, and keeping follow-up visits. This information is not intended to replace advice given to you by your health care provider. Make sure you discuss any questions you have with your health care provider. Document Revised: 11/18/2021 Document Reviewed: 11/18/2021 [employer] Patient Education 2022 [employer] Follow Up Care 10/18/2022 10:11:54 With:Omer Mendoza MD, [facility], [facility] Address:Unknown When: Unknown [facility] Evaluation + Plan note Note Date & Type Note Facility Evaluation + Plan note No data available for this section [facility] Hospital Discharge instructions Note Date & Type Note Facility Hospital Discharge instructions No data available for this section [facility] Progress note Note Date & Type Note Facility Progress note No data available for this section [facility] Summary Purpose Family History No Family History Records Found Advance Directives No Advanced Directives Records Found Additional Source Comments Patient Care team informatio n (unrecognized section and content) Personnel Name: Omer Mendoza MD Address: Address: [address] [place] [address] Personnel Name: Omer Mendoza MD Address: Address: [address] [place] [address] Personnel Name: Omer Mendoza MD Address: Address: [address] [place] [address] Personnel Name: Omer Mendoza MD Address: Address: [address] [place] [address] Personnel Name: Omer Mendoza MD Address: Address: [address] [place] [address] INFORMATION SOURCE (unrecogn ized section and content) DATE CREATED AUTHOR 11/27/2022 [facility] FOR RECORDS PERTAINING TO PATIENTS WHO ARE OR HAVE BEEN ENROLLED IN A CHEMICAL DEPENDENCY/SUBSTANCEABUSE PROGRAM, SOME INFORMATION MAY BE OMITTED. This clinical summary was aggregated from multiple sources. Caution should be exercised in using it in the provision of clinical care. This summary normalizes information from multiple sources, and as a consequence, information in this document may materially change the coding, format and clinical context of patient data. In addition, data may be omitted in some cases. CLINICAL DECISIONS SHOULD BE BASED ON THE PRIMARY CLINICAL RECORDS. [facility] [employer] provides no warranty or guarantee of the accuracy or completeness of information in this document.
== END 2023-01-08 12:29 | disposition home or self-care (01) ==
LOC: US 12:29
PROVIDERS: Visit Provider Obstetrics & Gynecology
DX: O02.1 Missed abortion (principal); N92.6 Irregular menstruation, unspecified
CPT/HCPCS: 76817

== ENCOUNTER 2023-01-09 14:42 | Outpatient (OUT) | payer BC, SELFPAY ==
--- NOTE | 2023-01-09 15:06 | P.GSHP_ITS ---
History of Present Illness History of Present Illness Chief complaint: Missed AB Narrative: Patient presents for preadmission testing. The patient states she had a appointment with Dr. Dodson yesterday and it was determined after an ultrasound that she had a missed . The patient is tearful. She states she has not had any abdominal pain, vaginal bleeding, nausea, vomiting, or any other complaints. The patient reports a remote history of mitral valve prolapse with no complications. Review of Systems ROS Narrative REVIEW OF SYSTEMS: Negative except as stated in HPI, ten or more systems reviewed. Constitutional: No fever , chills, weakness ENT: No sore throat or epistaxis Cardiovascular: No edema, chest pain, palpitations, or activity intolerance Respiratory: No shortness of breath, cough, or wheezing Musculoskeletal: No joint pain or swelling Gastrointestinal: No abdominal pain, constipation, diarrhea, or vomiting Genitourinary: No dysuria or hematuria Neurological: No numbness, tingling, weakness, or headache Psychiatric: No mood changes PFSH PFSH Medical History (Updated 01/09/23 @ 14:57 by Samaria Torres NP) COVID-19 ?U07.1 - COVID-19 (ICD-10) Heart murmur ?R01.1 - Cardiac murmur, unspecified (ICD-10) Missed ?O02.1 - Missed (ICD-10) MVP (mitral valve prolapse) ?I34.1 - Nonrheumatic mitral (valve) prolapse (ICD-10) Postoperative nausea and vomiting ?R11.2 - Nausea with vomiting, unspecified (ICD-10) ?Z98.890 - Other specified postprocedural states (ICD-10) Surgical History (Updated 01/09/23 @ 14:58 by Samaria Torres NP) History of section ?Z98.891 - History of uterine scar from previous surgery (ICD-10) History of section ?Z98.891 - History of uterine scar from previous surgery (ICD-10) History of wisdom tooth extraction ?K08.409 - Partial loss of teeth, unspecified cause, unspecified class (ICD- 10) Family History (Updated 01/09/23 @ 14:57 by Samaria Torres NP) Other Family history of diabetes mellitus Family history of hypertension Family history of myocardial infarction Family history of stroke Social History (Updated 01/09/23 @ 14:54 by Samaria Torres NP) Within the past year, how often did you have a drink containing alcohol: never Score interpretation: A score less than 3 is consistent with normal alcohol consumption. 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 Highest level of school completed/degree received: Bachelor's degree Meds Home Medications and Allergies Allergies Allergy/AdvReac Type Severity Reaction Status Date / Time No Known Drug Allergies Allergy Verified 01/09/23 14:54 Exam Narrative Exam Narrative: Constitutional: Awake, alert, comfortable, well-appearing, nontoxic, interactive, vital signs as charted Head: Normocephalic, atraumatic Neck: Supple, normal appearance, normal range of motion, no meningeal signs, no lymphadenopathy Respiratory: No respiratory distress, breath sounds clear Cardiovascular: Regular rate and rhythm, strong and regular heart tones Abdomen: Nontender, normal bowel sounds, soft, no CVA tenderness Musculoskeletal: Normal gait, no swelling or edema Skin: No rashes or induration, no lesions, only visible skin inspected Neuro: No neurological deficits, normal sensation Psychiatric: Oriented ?3, Tearful Assessment and Plan Assessment and Plan (1) Missed : Plan D & C with suction scheduled with Dr. Dodson 01/12/2023.
--- OUTSIDE RECORDS SUMMARY | 2023-02-10 20:10 | XMS_ITS | CCD ---
Author Name Unknown Address [address] [place] [address] Organization [facility] Care Team Providers Care Client Application Support Specialist Name Role Phone Omer Mendoza Primary Care Physician Cristian Gross Attending Unavailable Omer Mendoza Attending Unavailable Cristian Gross Attending Unavailable Cristian Gross Admitting Unavailable XI LONG Attending Ariana e Cristian Gross Attending Unavailable Allergies Allergy Classification Reported Allergen(s) Allergy Type Date of Onset Reaction(s) Facility (1 source) No Known Medication Allergies; Translations: [No Known Medication Allergies] Propensity to adverse reactions (disorder) [facility] Repository Medications Current Medications Medication Drug Class(es) Dates Sig (Normalized) Sig (Original) cephalexin 500 mg oral capsule (4 sources) Cephalosporin Antibacterial Start: 10-18-2022 End: 10-25-2022 take 1 capsule by mouth every eight hours Keflex 500 mg Cap 500 mg = 1 cap(s), Oral, q8hr, X 7 day(s), # 21 cap(s), Refills(s) 0, Pharmacy: [facility]/pharmacy #[id number], 158, cm, 10/18/22 11:02:00 EDT, Height/Length [...] 11-19-2022 Auth for Release of Medical Records [id number]:[id number] Normal [facility] Family Medicine Office/Clini c Noteon 10-22-2022 [...] agree with above documented HPI by medical communication specialist. Portions of this record may have been created with voice recognition artificial intelligence software, specifically [employer], [employer] and or [employer]. Substitutions may have occurred due to the [...] pain on examination. 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 Status post I&D of [...] and affect Assessment/Plan 27-year-old female presented to [facility], for status post I&D abscess of left [...] With When Contact Information Omer Mendoza MD, [facility], MED Additional Instructions: Patient Education BMI for Adults Skin Abscess, Mawz-hu-Pqll Problem List/Past Medical History Ongoing Abscess of [...] Not Given Postpone due to refusal Normal [facility] Comment on above: Result Comment: Elec [...] these instructions at home: Medicines ? Take yqpp-apl-ezpzodq and prescription medicines only as told by [...] cannot use soap and water, use hand records assistant. ? Check your abscess every day for signs that the infection is getting worse. Check for: ? More redness, swelling, or pain. ? More fluid or blood. ? Warmth. ? More pus or a bad smell. General instructions ? To avoid spreading the infection: ? Do not share personal care items, towels, or hot tubs with others. ? Avoid making yifn-dq-guou contact with other people. ? Keep all [...] provider. Document Revised: 11/18/2021 Document Reviewed: 11/18/2021 [employer] Patient Education ? 2022 [facility]. Nutrition BMI for Adults What is BMI? [...] numbers. This can be done either in [place] or metric measurements. Note that charts and online BMI calculators are available to help you find your BMI quickly and easily without having to do these calculations yourself. To calculate your BMI in [place] measurements: 1. Measure your weight in [...] (more content not included)... Normal [facility] Family Medicine Office/Clini c Noteon 10-20-2022 [...] with voice recognition software. Occasional wrong-word or ?xhyxs-d-izii? substitutions may have occurred due to the inherent limitations of voice recognition software. 27 yo female presents to [facility] care today with chief complaint of [...] With When Contact Information Omer Mendoza MD, [facility], MED Additional Instructions: Patient Education BMI for Adults Incision and Drainage, Care After Skin Abscess, Thea-vu-Kdns Problem List/Past Medical History Ongoing No chronic [...] Given Po (more content not included)... Normal [facility] Comment on above: Result Comment: Elec tronically Signed By: Renato LAYNE, Cristian Wilson\.br\Date and Time Signed: 10/20/22 11:48 EDT No Panel InformationOrdered By: Jami Buck on 10-20-2022 GS 3+ White Blood Cells Occasional Gram Negative Rods [facility] Patient Educationon 10-21-19 Patient Education Infectious Disease [...] these instructions at home: Medicines ? Take gysh-biz-mbwgaql and prescription medicines only as told by [...] and water are not available, use hand records assistant. ? Change your dressing and packing as [...] 11/21/2021 E (more content not included)... Normal [facility] Letter [facility] (Inserted Image. Eva ble to display) [address], [place] [address] [id number] October 20, 2022 CURRY FERRARA [address] [place] [id number] : 1995 Please excuse CURRY FERRARA from work . Date and/or Time of Absence: From: 10/20/2022 To: 10/21/2022 May return to work on: 10/21/2022 Restrictions: None Comments: Please excuse due to an acute illness. 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 Portions of this record have been created with voice recognition software. Occasional wrong-word or ?vnjyf-y-zrpq? substitutions may have occurred due to the [...] Recently moved back to the area from [place] does not currently have a primary care provider or cloud physicist. Patient states she tried using qacf-dys-dalqerh Dermoplast with minimal relief. Has otherwise been [...] day(s), # 21 cap(s), Refills(s) 0, Pharmacy: [facility]/pharmacy #[id number], 158, cm, 10/18/22 11:02:00 EDT, Height/Length [...] With When Contact Information Omer Mendoza MD, [facility], MED Additional Instructions: Patient Education BMI for Adults Skin Abscess, Qbwi-be-Orrr Problem List/Past Medical History Ongoing No chronic problems Historical No qualifying data Medications Bactrim D.S. 800 mg-160 mg Tab, 1 tab(s), Oral, BID Keflex 500 mg Cap, 500 mg= 1 cap(s), Oral, q8hr Allergies No Known Allergies No Known Medication Allergies Social History Tob (more content not included)... Normal [facility] Comment on above: Result Comment: Elec [...] these instructions at home: Medicines ? Take rwxx-gpa-wirafov and prescription medicines only as told by [...] cannot use soap and water, use hand records assistant. ? Check your abscess every day for signs that the infection is getting worse. Check for: ? More redness, swelling, or pain. ? More fluid or blood. ? Warmth. ? More pus or a bad smell. General instructions ? To avoid spreading the infection: ? Do not share personal care items, towels, or hot tubs with others. ? Avoid making pjdo-hi-ycxm contact with other people. ? Keep all [...] provider. Document Revised: 11/18/2021 Document Reviewed: 11/18/2021 [employer] [place] Patient Education ? 2022 [facility]. Nutrition BMI for Adults What is BMI? [...] numbers. This can be done either in [place] or metric measurements. Note that charts and online BMI calculators are available to help you find your BMI quickly and easily without having to do these calculations yourself. To calculate your BMI in [place] measurements: 1. Measure your weight in [...] who is (more content not included)... Normal [facility] Vital Signs Date Time Vital Sign Value Performing Clinician Facility 10-22-2022 09:02-0400 Blood Pressure Location ESTRELLA LONG [facility] 10-22-2022 09:02-0400 Body temperature 98.06 [degF] ELMER MERCEDES [facility] 10-22-2022 09:02-0400 Diastolic blood pressure 68 mm[Hg] [facility] 10-22-2022 09:02-0400 Heart rate 95 /min [facility] 10-22-2022 09:02-0400 SaO2% (BldA) [Mass fraction] 99 % [facility] 10-22-2022 09:02-0400 Systolic blood pressure 106 mm[Hg] [facility] 10-20-2022 09:25-0400 Body temperature 98.6 [degF] Cristian Gross [facility] 10-20-2022 09:25-0400 Diastolic blood pressure 72 mm[Hg] Cristian Gross [facility] 10-20-2022 09:25-0400 Heart rate 100 /min Cristian Gross [facility] 10-20-2022 09:25-0400 SaO2% (BldA) [Mass fraction] 98 % Cristian Gross [facility] 10-20-2022 09:25-0400 Systolic blood pressure 102 mm[Hg] Cristian Gross [facility] 08-26-2023 10:58-0400 Blood Pressure Location Cristianngozi Sepulvedaey [facility] 10-18-2022 10:58-0400 Body temperature 98.24 [degF] Cristianngozi Sepulvedaey [facility] 10-18-2022 10:58-0400 Diastolic blood pressure 82 mm[Hg] Cristianngozi Sepulvedaey [facility] 10-18-2022 10:58-0400 Heart rate 93 /min Cristian Renato [facility] 10-18-2022 10:58-0400 SaO2% (BldA) [Mass fraction] 99 % Cristian Renato [facility] 10-18-2022 10:58-0400 Systolic blood pressure 124 mm[Hg] Cristianngozi Sepulvedaey [facility] Encounters Encounter Date Encounter Type Care Provider Facility Start: 10-22-2022 End: 10-23-2022 ambulatory PA-C ESTRELLA LONG Facility:[facility] Start: 10-22-2022 End: 10-22-2022 Patient encounter procedure ESTRELLA LONG [facility] Start: 10-20-2022 End: 10-21-2022 ambulatory Cristian Gross Facility:[facility] Start: 10-20-2022 End: 10-20-2022 Lab Drop off Cristian Gross [facility] Start: 10-20-2022 End: 10-20-2022 Patient encounter procedure Cristian Gross [facility] Start: 10-18-2022 End: 10-19-2022 ambulatory Cristian Gross Facility:[facility] Start: 10-18-2022 End: 10-18-2022 Patient encounter procedure Cristianngozi Gross [facility] Start: 09-01-2022 End: 09-02-2022 [facility] Start: 09-01-2022 End: 09-01-2022 [facility] Start: 08-20-2022 ambulatory Cristian Gonzalezpsey Facility: [facility] Immunizations Immunization Date Immunization Notes Care Provider Nicolas eubanks NEGATED: Highlighted row has not occurred!10-18-2022 SARS-CoV-2 mRNA (tozinameran 5y-11y) vaccine Cristian Gross [facility] Payers Date Payer Category Payer Unknown [id number] 1995 Unknown [id number] [id number] 1995 Unknown [id number] 2.16.8 [id number] 1995 Unknown [id number] 2.16.8 [id number] 1995 Unknown [id number] 2.16.8 [id number] 1995 Unknown [id number] 2.16.8 [id number] Social History Date Type Detail Facility Tobacco smoking status No Smokin g Status Entered [facility] Sex Assigned At Female [facility] Start: 10-18-2022 End: 10-20-2022 Tobacco smoking status Never smoked tobacco (finding) [facility] Tobacco smoking status Never [facility] Functional Status Date Assessment Result Facility 10-22-2022 Functional Status N/A [facility] 10-20-2022 Functional Status N/A [facility] 10-18-2022 Functional Status N/A [facility] Clinical Note 10-22-2022 Note Date [...] Locations R1: This test was performed at: [facility], [address] [place] [address], [facility] , , [facility] Comment on above: Performed By: #### [id number] #### [facility] [address] [place] [address] Hospital Discharge instructions 10-22-2022 Note Date & [...] numbers. This can be done either in [place] or metric measurements. Note that charts and online BMI calculators are available to help you find your BMI quickly and easily without having to do these calculations yourself. To calculate your BMI in [place] measurements: 1.Measure your weight in pounds [...] Centers for Disease Control and Prevention: www.cdc.gov British Heart Association: www.heart.org National Heart, Lung, and Blood Bulger: www.nhlbi.nih.gov Summary Body mass index (BMI) is a number that is calculated from a person's weight and height. BMI may help estimate how much of a person's weight is composed of fat. BMI can help identify those who may be at higher risk for certain medical problems. BMI can be measured using [place] measurements or metric measurements. BMI charts are used to identify whether you are underweight, normal weight, overweight, or obese. This information is not intended to replace advice given to you by your health care provider. Make sure you discuss any questions you have with your health care provider. Document Revised: 11/02/2019 Document Reviewed: 09/09/2019 [employer] Patient Education 2022 [facility]. 10/22/2022 09:39:10 Skin Abscess, Nfsj-wh-Sgmw Skin Abscess A skin abscess is an [...] Follow these instructions at home: Medicines Take fcgv-uap-hxrlcoj and prescription medicines only as told by [...] cannot use soap and water, use hand records assistant. Check your abscess every day for signs that the infection is getting worse. Check for: ?More redness, swelling, or pain. ?More fluid or blood. ?Warmth. ?More pus or a bad smell. General instructions To avoid spreading the infection: ?Do not share personal care items, towels, or hot tubs with others. ?Avoid making kqfi-le-yuyk contact with other people. Keep all follow-up [...] Document Reviewed: 11/18/2021 Elsevier Patient Education 2022 [employer] Follow Up Care 10/22/2022 08:56:37 With:Omer Mendoza MD, [facility], [facility] Address:Unknown When: Unknown [facility] Discharge instructions 10-20-2022 Note [...] numbers. This can be done either in [place] or metric measurements. Note that charts and online BMI calculators are available to help you find your BMI quickly and easily without having to do these calculations yourself. To calculate your BMI in [place] measurements: 1.Measure your weight in pounds [...] Centers for Disease Control and Prevention: www.cdc.gov British Heart Association: www.heart.org National Heart, Lung, and Blood Bulger: www.nhlbi.nih.gov Summary Body mass index (BMI) is a number that is calculated from a person's weight and height. BMI may help estimate how much of a person's weight is composed of fat. BMI can help identify those who may be at higher risk for certain medical problems. BMI can be measured using [place] measurements or metric measurements. BMI charts are used to identify whether you are underweight, normal weight, overweight, or obese. This information is not intended to replace advice given to you by your health care provider. Make sure you discuss any questions you have with your health care provider. Document Revised: 11/02/2019 Document Reviewed: 09/09/2019 [employer] Patient Education 2022 [facility]. 10/20/2022 11:48:05 Incision and Drainage, Care After [...] Follow these instructions at home: Medicines Take jmxy-ise-cxqtntv and prescription medicines only as told by [...] and water are not available, use hand records assistant. Change your dressing and packing as told [...] provider. Document Revised: 11/21/2021 Document Reviewed: 11/21/2021 [employer] Patient Education 2022 [facility]. 10/20/2022 11:48:04 Skin Abscess, Sepb-nx-Bcff Skin Abscess A skin abscess is an [...] Follow these instructions at home: Medicines Take iseq-eht-beluocv and prescription medicines only as told by [...] cannot use soap and water, use hand records assistant. Check your abscess every day for signs that the infection is getting worse. Check for: ?More redness, swelling, or pain. ?More fluid or blood. ?Warmth. ?More pus or a bad smell. General instructions To avoid spreading the infection: ?Do not share personal care items, towels, or hot tubs with others. ?Avoid making rrho-zs-qyxl contact with other people. Keep all follow-up [...] provider. Document Revised: 11/18/2021 Document Reviewed: 11/18/2021 [employer] Patient Education 2022 [employer] Follow Up Care 10/20/2022 09:18:08 With:Omer Mendoza MD, [facility], [facility] Address:Unknown When: Unknown [facility] Discharge instructions 10-18-2022 Note [...] numbers. This can be done either in [place] or metric measurements. Note that charts and online BMI calculators are available to help you find your BMI quickly and easily without having to do these calculations yourself. To calculate your BMI in [place] measurements: 1.Measure your weight in pounds [...] Centers for Disease Control and Prevention: www.cdc.gov British Heart Association: www.heart.org National Heart, Lung, and Blood Bulger: www.nhlbi.nih.gov Summary Body mass index (BMI) is a number that is calculated from a person's weight and height. BMI may help estimate how much of a person's weight is composed of fat. BMI can help identify those who may be at higher risk for certain medical problems. BMI can be measured using [place] measurements or metric measurements. BMI charts are used to identify whether you are underweight, normal weight, overweight, or obese. This information is not intended to replace advice given to you by your health care provider. Make sure you discuss any questions you have with your health care provider. Document Revised: 11/02/2019 Document Reviewed: 09/09/2019 [employer] Patient Education 2022 [facility]. 10/18/2022 11:50:00 Skin Abscess, Rlja-nn-Agmt Skin Abscess A skin abscess is an [...] Follow these instructions at home: Medicines Take llid-onk-lipgtnq and prescription medicines only as told by [...] cannot use soap and water, use hand records assistant. Check your abscess every day for signs that the infection is getting worse. Check for: ?More redness, swelling, or pain. ?More fluid or blood. ?Warmth. ?More pus or a bad smell. General instructions To avoid spreading the infection: ?Do not share personal care items, towels, or hot tubs with others. ?Avoid making evop-ox-cwfc contact with other people. Keep all follow-up [...] provider. Document Revised: 11/18/2021 Document Reviewed: 11/18/2021 [employer] [place] Patient Education 2022 [employer] Follow Up Care 10/18/2022 10:11:54 With:Omer Mendoza MD, [facility], [facility] Address:Unknown When: Unknown [facility] Evaluation + Plan note Note Date & Type Note Facility Evaluation + Plan note No data available for this section [facility] Hospital Discharge instructions Note Date & Type Note Facility Hospital Discharge instructions No data available for this section [facility] Progress note Note Date & Type Note Facility Progress note No data available for this section [facility] Summary Purpose Family History No Family History Records Found Advance Directives No Advanced Directives Records Found Additional Source Comments Patient Care team informatio n (unrecognized section and content) Personnel Name: Omer Mendoza MD Address: Address: [address] [place] [address] Personnel Name: Omer Mendoza MD Address: Address: [address] [place] [address] Personnel Name: Omer Mendoza MD Address: Address: [address] [place] [address] Personnel Name: Omer Mendoza MD Address: Address: [address] [place] [address] Personnel Name: Omer Mendoza MD Address: Address: [address] [place] [address] INFORMATION SOURCE (unrecogn ized section and content) DATE CREATED AUTHOR 11/27/2022 [facility] FOR RECORDS PERTAINING TO PATIENTS WHO [...] BE BASED ON THE PRIMARY CLINICAL RECORDS. [employer] provides no warranty or guarantee of the accuracy or completeness of information in this document.
== END 2023-01-09 14:43 | disposition home or self-care (01) ==
LOC: PST 14:43
PROVIDERS: Visit Provider Obstetrics & Gynecology
DX: Z01.818 Encounter for other preprocedural examination (principal); O02.1 Missed abortion
CPT/HCPCS: G0463

== ENCOUNTER 2023-01-12 10:14 | Day surgery (SDC) | payer BC, SELFPAY ==
[2023-01-09 15:04] VITALS: BP 135/75; PULSE 83; RESP 16; TEMP 36.6; O2SAT 99; BMI 28.8
[2023-01-12 10:23] LABS: Basophils Percent Auto 0.3 % (0.2-2.0); Eosinophils Percent Auto 0.5 % (0.9-7.0); Hematocrit 38.2 % (36.0-48.0); Hemoglobin 12.7 g/dL (12.0-16.0); Immature Granulocytes Abs Auto 0.04 10^3/uL (0.00-0.03); Immature Granulocytes Pct Auto 0.5 % (0.0-0.5); Lymphocytes Absolute Auto 2.3 10^3/uL (1.2-3.8); Lymphocytes Percent Auto 26.6 % (20.5-60.0); Mean Corpuscular HGB Conc 33.2 g/dL (29.9-35.2); Mean Corpuscular Volume 90.3 fL (81.0-99.0); Mean Platelet Volume 9.3 fL (9.5-13.5); Monocytes Absolute Auto 0.4 10^3/uL (0.3-0.8); Neutrophils Absolute Auto 5.9 10^3/uL (1.4-6.5); Neutrophils Percent Auto 67.1 % (43.0-75.0); Platelet Count 285 10^3/uL (150-450); Red Blood Count 4.23 10^6/uL (4.20-5.40); Red Cell Distribution Width 12.3 % (11.0-15.0); White Blood Count 8.8 10^3/uL (4.0-11.0)
[2023-01-12 10:33] VITALS: BP 143/81; PULSE 99; RESP 16; TEMP 36.8; O2SAT 100
[2023-01-12] MEDS: LACTATED RINGER'S SOLUTION 1,000 ML 50 ML IV (10:45)
--- NOTE | 2023-01-12 10:50 | US_ITS ---
[place] [id number] Patient Name: CURRY FERRARA MRN: [id number] date: 1995 Sex: F Assigned Patient Location: [facility] Current Patient Location: [facility] Accession/Order Number: [id number] Exam Date: 01/12/2023 10:51 Report Date: 01/12/2023 11:30 At the request of: JACLYN SHAW Procedure: US OB limited EXAM: US OB limited 01/12/2023 8:26 AM PST, [id number] HISTORY: preop. miscarriage. TECHNIQUE: Multiple longitudinal and transverse grayscale and color sonographic images of the intrauterine fetus were acquired. COMPARISON: OB ultrasound 01/08/2023 FINDINGS: Intrauterine gestation with a pole measuring 27.9 mm. No heart rate observed. A yolk sac is present. Gestational age based on crown-rump length is 9 weeks 4 days, previously 9 weeks 0 days. US/US OB limited IMPRESSION: Single intrauterine gestational sac with yolk sac and pole. CRL: 27.9 mm. No cardiac activity detected. pole size > = 7mm without detectable HR is diagnostic of early failure. Reference: According to [facility] Multispecialty Panel (Simon et al, NEJ 2013; 369:1443-51) Electronically authenticated by: MIYA OLIVER Date: 01/12/2023 11:30
--- NOTE | 2023-01-12 12:38 | US_ITS ---
The [address] [address] Patient Name: CURRY FERRARA MRN: [id number] date: 1995 Sex: F Assigned Patient Location: [facility] Current Patient Location: [facility] Accession/Order Number: [id number] Exam Date: 01/12/2023 12:40 Report Date: 01/12/2023 13:23 At the request of: JACLYN SHAW Procedure: US pelvis EXAMINATION: US pelvis HISTORY: PREOP MISCARRIAGE TECHNIQUE: Transabdominal and/or transvaginal sonographic examination was performed as indicated by examination type. FINDINGS: 3 intraprocedural ultrasound images of the post D&C uterus were presented for review. No appreciable retained products of conception. US/US pelvis IMPRESSION: 1. No appreciable retained products of conception. Electronically authenticated by: ALLEN REYNOSO Date: 01/12/2023 13:23
--- NOTE | 2023-01-12 13:08 | P.ON_ITS ---
Brief Operative Note Date of procedure: 01/12/23 Pre-op diagnosis: missed first trimester Post-op diagnosis: same as pre-op Procedure: NAME OF PROCEDURE: [D&C suction ] PROCEDURE: The patient was taken back to the OR where she was given general anesthesia without difficulty. She was then placed in dorsal lithotomy position, prepped and draped in the normal sterile fashion. A weighted speculum was placed in the patient's vagina and the anterior lip of the cervix was identified and grasped with a single-tooth tenaculum. The patient was then gently dilated using Hegar dilators after we had sounded roughly to 12 cm. The suction curette was then tested. The suction curette was then placed in the patient's uterus and products of conception were removed using an 10-St Helenian suction curette. ?Excellent hemostasis was noted. The patient tolerated the procedure well. Sponge, lap, and needle counts were correct x 2. All instruments were then removed from the patient's vagina. The patient was taken to the Recovery Room in stable condition. ?? Anesthesia: GABRIELAA Surgeon: Manuel Dodson Estimated blood loss (mL): 50 Pathology: other (poc) Condition: stable Disposition: PACU
[2023-01-12 13:13] VITALS: BP 105/71; PULSE 93; RESP 16; O2SAT 96
[2023-01-12 13:43] VITALS: BP 105/64; PULSE 68; RESP 16; O2SAT 97
[2023-01-12 14:13] VITALS: BP 113/71; PULSE 66; RESP 14; O2SAT 100
[2023-01-12] MEDS: LACTATED RINGER'S SOLUTION 1,000 ML 150 ML IV (14:20)
--- NOTE | 2023-01-12 14:26 | PC.NURSE ---
Small amount red blood noted on peripad ; no clots
[2023-01-12 14:43] VITALS: BP 117/72; PULSE 73; RESP 16; O2SAT 100
--- NOTE | 2023-01-12 14:52 | PC.NURSE ---
Up to bathroom and voids clear yellow without difficulty; no increase in drainage on peripad from previous
== END 2023-01-12 14:53 | disposition home or self-care (01) ==
PROVIDERS: Visit Provider Obstetrics & Gynecology
PROC: (CPT 59820; principal; 2023-01-12 11:30)
DX: O02.1 Missed abortion (principal); Z86.16 Personal history of COVID-19; R01.1 Cardiac murmur, unspecified; I34.1 Nonrheumatic mitral (valve) prolapse
CPT/HCPCS: 59820; 36415; 76815; 76856; 84702; 85025; 86850; 86900; 86901; 88305; J2704

== ENCOUNTER 2023-01-26 11:49 | Outpatient (OUT) | payer BC, SELFPAY ==
[2023-01-26 12:31] LABS: HCG Quantitative 85 mIU/mL
== END 2023-01-26 11:50 | disposition home or self-care (01) ==
LOC: LAB 11:51
PROVIDERS: Visit Provider Physician Assistant
DX: Z98.890 Other specified postprocedural states (principal)
CPT/HCPCS: 36415; 84702

== ENCOUNTER 2023-02-07 06:42 | Outpatient (RCR) | payer BC, SELFPAY ==
[2023-02-07 08:01] LABS: HCG Quantitative 9 mIU/mL
[2023-02-09 09:53] LABS: HCG Quantitative 6 mIU/mL
[2023-02-11 07:10] LABS: HCG Quantitative 5 mIU/mL
[2023-02-18 14:53] LABS: HCG Quantitative 2 mIU/mL
== END 2023-02-20 15:51 | disposition home or self-care (01) ==
LOC: LAB 06:42
PROVIDERS: Visit Provider Obstetrics & Gynecology
DX: O03.9 Complete or unspecified spontaneous abortion without complication (principal)
CPT/HCPCS: 36415; 84702

== ENCOUNTER 2023-03-10 21:00 | Outpatient (REF) | payer BC, SELFPAY ==
--- OUTSIDE RECORDS SUMMARY | 2023-03-10 21:03 | XMS_ITS | CCD ---
Author Name Unknown Address [address] [place] [address] Organization [facility] Care Team Providers Care Radio Script Writer Name Role Phone Omer Mendoza Primary Care Physician Cristian Gross Attending Unavailable Omer Mendoza Attending Unavailable Cristian Gross Attending Unavailable Cristian Gross Admitting Unavailable [place] LONG Attending Ariana e Cristian Gross Attending Unavailable Allergies Allergy Classification Reported Allergen(s) Allergy Type Date of Onset Reaction(s) Facility (1 source) No Known Medication Allergies; Translations: [No Known Medication Allergies] Propensity to adverse reactions (disorder) [facility] Repository Medications Current Medications Medication Drug Class(es) [...] Results Test Name Value Interpretation Reference Range Facility Auth for Release of Medical Recordson 11-19-2022 Auth for Release of Medical Records [id number] 6#1.00CD:127 Normal [facility] Family Medicine Office/Clini c Noteon 10-22-2022 Family [...] agree with above documented HPI by medical terminologist. Portions of this record may have been created with voice recognition artificial intelligence software, specifically [employer], [employer] and or [employer]. Substitutions may have occurred due to the [...] complete sentences, and follows commands appropriately. Head/Face: Normocephalic/atrau matic no upper respiratory infection. Lungs: Normal respiratory effort and clear to auscultation throughout, no wheezing, no rales Cardio: regular rate and rhythm, no murmur Pulses: Normal capillary refill Abdomen: soft, nondistended, BS normal and active x4. Denies tenderness with palpation, no guarding, rebound, acute abdomen, suprapubic pressure, left or right CVA tenderness, or lumbar back pain on examination. : Yarelis RT/MA was professional security officer during the exam. Status post I&D of [...] and affect Assessment/Plan 27-year-old female presented to [facility], for status post I&D abscess of [...] With When Contact Information Omer Mendoza MD, [facility], MED Additional Instructions: Patient Education BMI for Adults Skin Abscess, Kotw-ft-Pchf Problem List/Past Medical History Ongoing Abscess of [...] Immunizations Vaccine Date Status Comments SARS-CoV-2 mRNA (reginan 5y-11y) vac - Not Given Postpone due to refusal Normal [facility] Comment on above: Result Comment: Elec tronically [...] these instructions at home: Medicines ? Take xjal-pqp-odxdeuw and prescription medicines only as told by [...] cannot use soap and water, use hand chemical plant worker. ? Check your abscess every day for signs that the infection is getting worse. Check for: ? More redness, swelling, or pain. ? More fluid or blood. ? Warmth. ? More pus or a bad smell. General instructions ? To avoid spreading the infection: ? Do not share personal care items, towels, or hot tubs with others. ? Avoid making kssz-wk-qykr contact with other people. ? Keep all [...] provider. Document Revised: 11/18/2021 Document Reviewed: 11/18/2021 [employer] Patient Education ? 2022 [employer]. Nutrition BMI for Adults What is BMI? [...] numbers. This can be done either in Bulgarian (U.S.) or metric measurements. Note that charts and online BMI calculators are available to help you find your BMI quickly and easily without having to do these calculations yourself. To calculate your BMI in Bulgarian (U.S.) measurements: 1. Measure your weight in [...] is (more content not included)... Normal [facility] Medicine Office/Clini c Noteon 10-20-2022 Family Medicine [...] with voice recognition software. Occasional wrong-word or ?sssso-u-atfb? substitutions may have occurred due to the inherent limitations of voice recognition software. 27 yo female presents to [facility] today with chief complaint of vaginal [...] With When Contact Information Omer Mendoza MD, [facility], MED Additional Instructions: Patient Education BMI for Adults Incision and Drainage, Care After Skin Abscess, [place]-uk-Hvgc Problem List/Past Medical History Ongoing No chronic [...] Given Po (more content not included)... Normal [facility] Comment on above: Result Comment: Elec tronically Signed By: Renato LAYNE, Cristian Wilson\.br\Date and Time Signed: 10/20/22 11:48 EDT No Panel InformationOrdered By: Jami Buck on 10-20-2022 GS 3+ White Blood Cells Occasional Gram Negative Rods [facility] Patient Educationon 10-21-19 Patient Education Infectious Disease [...] these instructions at home: Medicines ? Take xdfu-euo-wuoxcfg and prescription medicines only as told by [...] and water are not available, use hand chemical plant worker. ? Change your dressing and packing as [...] 11/21/2021 E (more content not included)... Normal [facility] [address] [place] [phone] October 20, 2022 CURRY FERRARA [address] [place] [id number] : 1995 Please excuse CURRY FERRARA from work . Date and/or Time of Absence: From: 10/20/2022 To: 10/21/2022 May return to work on: 10/21/2022 Restrictions: None Comments: Please excuse due to an acute illness. Provider Signature: Cristian Gross PA-C Physician Marine Steward Jelena [address] 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 Portions of this record have been created with voice recognition software. Occasional wrong-word or ?eochd-g-yfru? substitutions may have occurred due to the [...] Recently moved back to the area from [place] does not currently have a primary care provider or sample prep technician. Patient states she tried using tvlr-und-sdeskcf Dermoplast with minimal relief. Has otherwise been [...] day(s), # 21 cap(s), Refills(s) 0, Pharmacy: [id number], 158, cm, 10/18/22 11:02:00 EDT, Height/Length Dosing, 75.2, kg, 10/18/22 11:02:00 EDT, Weight Dosing sulfamethoxazole-tr imethoprim, 1 tab(s), Oral, BID for 7 day(s), [...] 75.2, kg, 10/18/22 11:02:00 EDT, Weight Dosing sulfamethoxazole-tr imethoprim, 1 tab(s), Oral, BID for 7 day(s), 14 tab(s), Refill(s) 0, [id number], 158, cm, 10/18/22 11:02:00 EDT, Height/Length Dosing, 75.2, kg, 10/18/22 11:02:00 EDT, Weight Dosing Follow-up With When Contact Information Omer Mendoza MD, [facility], MED Additional Instructions: Patient Education BMI for Adults Skin Abscess, Kjcx-gf-Euhv Problem List/Past Medical History Ongoing No chronic problems Historical No qualifying data Medications Bactrim D.S. 800 mg-160 mg Tab, 1 tab(s), Oral, BID Keflex 500 mg Cap, 500 mg= 1 cap(s), Oral, q8hr Allergies No Known Allergies No Known Medication Allergies Social History Tob (more content not included)... Normal [facility] Comment on above: Result Comment: Elec tronically [...] these instructions at home: Medicines ? Take aesb-ily-cytklxs and prescription medicines only as told by [...] cannot use soap and water, use hand chemical plant worker. ? Check your abscess every day for signs that the infection is getting worse. Check for: ? More redness, swelling, or pain. ? More fluid or blood. ? Warmth. ? More pus or a bad smell. General instructions ? To avoid spreading the infection: ? Do not share personal care items, towels, or hot tubs with others. ? Avoid making wwpm-xo-otnv contact with other people. ? Keep all [...] provider. Document Revised: 11/18/2021 Document Reviewed: 11/18/2021 [employer] Patient Education ? 2022 [employer]. Nutrition BMI for Adults What is BMI? [...] numbers. This can be done either in Bulgarian (U.S.) or metric measurements. Note that charts and online BMI calculators are available to help you find your BMI quickly and easily without having to do these calculations yourself. To calculate your BMI in Bulgarian (U.S.) measurements: 1. Measure your weight in [...] who is (more content not included)... Normal [facility] Vital Signs Date Time Vital Sign Value Performing Clinician Facility 10-22-2022 09:02-0400 Blood Pressure Location ESTRELLA LONG [facility] 10-22-2022 09:02-0400 Body temperature 98.06 [degF] [place] [facility] 10-22-2022 09:02-0400 Diastolic blood pressure 68 mm[Hg] [place] [facility] 10-22-2022 09:02-0400 Heart rate 95 /min [facility] 10-22-2022 09:02-0400 SaO2% (BldA) [Mass fraction] 99 [facility] 10-22-2022 09:02-0400 Systolic blood pressure 106 mm[Hg] [place] [facility] 10-20-2022 09:25-0400 Body temperature 98.6 [degF] Cristian Gross [facility] 10-20-2022 09:25-0400 Diastolic blood pressure 72 mm[Hg] Cristian Gross [facility] 10-20-2022 09:25-0400 Heart rate 100 /min Cristian Gross [facility] 10-20-2022 09:25-0400 SaO2% (BldA) [Mass fraction] 98 % Cristian Gross [facility] 10-20-2022 09:25-0400 Systolic blood pressure 102 mm[Hg] Cristian Gross [facility] 08-26-2023 10:58-0400 Blood Pressure Location Cristianngozi Sepulvedaey [facility] 10-18-2022 10:58-0400 Body temperature 98.24 [degF] Cristianngozi Sepulvedaey [facility] 10-18-2022 10:58-0400 Diastolic blood pressure 82 mm[Hg] Cristianngozi Sepulvedaey [facility] 10-18-2022 10:58-0400 Heart rate 93 /min Cristian Renato [facility] 10-18-2022 10:58-0400 SaO2% (BldA) [Mass fraction] 99 % Cristian Renato [facility] 10-18-2022 10:58-0400 Systolic blood pressure 124 mm[Hg] Cristianngozi Sepulvedaey [facility] Encounters Encounter Date Encounter Type Care Provider Facility Start: 10-22-2022 End: 10-23-2022 ambulatory PA-C ESTRELLA LONG Facility:[facility] Start: 10-22-2022 End: 10-22-2022 Patient encounter procedure ESTRELLA LONG [facility] Start: 10-20-2022 End: 10-21-2022 ambulatory Cristian Gross Facility:[facility] Start: 10-20-2022 End: 10-20-2022 Lab Drop off Cristian Gross [facility] Start: 10-20-2022 End: 10-20-2022 Patient encounter procedure Cristian Gross [facility] Start: 10-18-2022 End: 10-19-2022 ambulatory Cristian Gross Facility:[facility] Start: 10-18-2022 End: 10-18-2022 Patient encounter procedure Cristianngozi Gross [facility] Start: 09-01-2022 End: 09-02-2022 [facility] Start: 09-01-2022 End: 09-01-2022 [facility] Start: 08-20-2022 ambulatory Cristian Gonzalezpsey Facility: [facility] Immunizations Immunization Date Immunization Notes Care Provider Nicolas eubanks NEGATED: Highlighted row has not occurred!10-18-2022 SARS-CoV-2 mRNA (tozinameran 5y-11y) vaccine Cristian Gross [facility] Payers Date Payer Category Payer Unknown [id number] 1995 Unknown [id number] 2.16.8 [id number] 1995 Unknown [id number] 2.16.8 [id number] 1995 Unknown [id number] 2.16.8 [id number] 1995 Unknown [id number] 2.16.8 [id number] 1995 Unknown [id number] 2.16.8 [id number] Social History Date Type Detail Facility Tobacco smoking status No Smokin g Status Entered [facility] Sex Assigned At Female [facility] Start: 10-18-2022 End: 10-20-2022 Tobacco smoking status Never smoked tobacco (finding) [facility] Tobacco smoking status Never [facility] Functional Status Date Assessment Result Facility 10-22-2022 Functional Status N/A [facility] 10-20-2022 Functional Status N/A [facility] 10-18-2022 Functional Status N/A [facility] Clinical Note 10-22-2022 Note Date [...] This test was performed at: [facility], [address] [place] [address], [facility] , , [facility] Comment on above: Performed By: #### 2 [id number] #### [facility] [address] [place] [address] Hospital Discharge instructions 10-22-2022 Note Date & [...] numbers. This can be done either in Bulgarian (U.S.) or metric measurements. Note that charts and online BMI calculators are available to help you find your BMI quickly and easily without having to do these calculations yourself. To calculate your BMI in Bulgarian ([place].S.) measurements: 1.Measure your weight in pounds [...] Centers for Disease Control and Prevention: www.cdc.gov [place] Heart Association: www.heart.org National Heart, Lung, and Blood [place]: www.nhlbi.nih.gov Summary Body mass index (BMI) is a number that is calculated from a person's weight and height. BMI may help estimate how much of a person's weight is composed of fat. BMI can help identify those who may be at higher risk for certain medical problems. BMI can be measured using Bulgarian measurements or metric measurements. BMI charts are used to identify whether you are underweight, normal weight, overweight, or obese. This information is not intended to replace advice given to you by your health care provider. Make sure you discuss any questions you have with your health care provider. Document Revised: 11/02/2019 Document Reviewed: 09/09/2019 [employer] Patient Education 2022 [employer]bely. 10/22/2022 09:39:10 Skin Abscess, Epan-rd-Dlry Skin Abscess A skin abscess is an [...] Follow these instructions at home: Medicines Take biek-rgq-wvhyuqr and prescription medicines only as told by [...] cannot use soap and water, use hand chemical plant worker. Check your abscess every day for signs that the infection is getting worse. Check for: ?More redness, swelling, or pain. ?More fluid or blood. ?Warmth. ?More pus or a bad smell. General instructions To avoid spreading the infection: ?Do not share personal care items, towels, or hot tubs with others. ?Avoid making ejlf-su-ctyx contact with other people. Keep all follow-up [...] Document Reviewed: 11/18/2021 Else[employer] Patient Education 2022 [employer] Follow Up Care 10/22/2022 08:56:37 With:Omer Mendoza MD, [facility] Address:Unknown When: Unknown [facility] Discharge instructions 10-20-2022 Note [...] numbers. This can be done either in Bulgarian (U.S.) or metric measurements. Note that charts and online BMI calculators are available to help you find your BMI quickly and easily without having to do these calculations yourself. To calculate your BMI in Bulgarian (U.S.) measurements: 1.Measure your weight in pounds [...] Centers for Disease Control and Prevention: www.cdc.gov [place] Heart Association: www.heart.org National Heart, Lung, and Blood [place]: www.nhlbi.nih.gov Summary Body mass index (BMI) is a number that is calculated from a person's weight and height. BMI may help estimate how much of a person's weight is composed of fat. BMI can help identify those who may be at higher risk for certain medical problems. BMI can be measured using Bulgarian measurements or metric measurements. BMI charts are used to identify whether you are underweight, normal weight, overweight, or obese. This information is not intended to replace advice given to you by your health care provider. Make sure you discuss any questions you have with your health care provider. Document Revised: 11/02/2019 Document Reviewed: 09/09/2019 [employer] Patient Education 2022 [employer]. 10/20/2022 11:48:05 Incision and Drainage, Care After [...] Follow these instructions at home: Medicines Take lfac-ltq-icafpka and prescription medicines only as told by [...] and water are not available, use hand chemical plant worker. Change your dressing and packing as told [...] provider. Document Revised: 11/21/2021 Document Reviewed: 11/21/2021 [employer] Patient Education 2022 [employer]. 10/20/2022 11:48:04 Skin Abscess, Nfio-mw-Oxmz Skin Abscess A skin abscess is an [...] Follow these instructions at home: Medicines Take mtgy-cbu-stuhqik and prescription medicines only as told by [...] cannot use soap and water, use hand chemical plant worker. Check your abscess every day for signs that the infection is getting worse. Check for: ?More redness, swelling, or pain. ?More fluid or blood. ?Warmth. ?More pus or a bad smell. General instructions To avoid spreading the infection: ?Do not share personal care items, towels, or hot tubs with others. ?Avoid making edwe-np-iayj contact with other people. Keep all follow-up [...] provider. Document Revised: 11/18/2021 Document Reviewed: 11/18/2021 [employer] Patient Education 2022 [employer] Follow Up Care 10/20/2022 09:18:08 With:Omer Mendoza MD, [facility] Address:Unknown When: Unknown [facility] Discharge instructions 10-18-2022 Note [...] numbers. This can be done either in Bulgarian (U.S.) or metric measurements. Note that charts and online BMI calculators are available to help you find your BMI quickly and easily without having to do these calculations yourself. To calculate your BMI in Bulgarian (U.S.) measurements: 1.Measure your weight in pounds [...] Centers for Disease Control and Prevention: www.cdc.gov [place] Heart Association: www.heart.org National Heart, Lung, and Blood [place]: www.nhlbi.nih.gov Summary Body mass index (BMI) is a number that is calculated from a person's weight and height. BMI may help estimate how much of a person's weight is composed of fat. BMI can help identify those who may be at higher risk for certain medical problems. BMI can be measured using Bulgarian measurements or metric measurements. BMI charts are used to identify whether you are underweight, normal weight, overweight, or obese. This information is not intended to replace advice given to you by your health care provider. Make sure you discuss any questions you have with your health care provider. Document Revised: 11/02/2019 Document Reviewed: 09/09/2019 [employer] Patient Education 2022 [employer]ely. 10/18/2022 11:50:00 Skin Abscess, Jjwf-ek-Gxmf Skin Abscess A skin abscess is an [...] Follow these instructions at home: Medicines Take ylqq-psn-dlsjbcp and prescription medicines only as told by [...] cannot use soap and water, use hand chemical plant worker. Check your abscess every day for signs that the infection is getting worse. Check for: ?More redness, swelling, or pain. ?More fluid or blood. ?Warmth. ?More pus or a bad smell. General instructions To avoid spreading the infection: ?Do not share personal care items, towels, or hot tubs with others. ?Avoid making pvll-xd-kosd contact with other people. Keep all follow-up [...] provider. Document Revised: 11/18/2021 Document Reviewed: 11/18/2021 [employer] Patient Education 2022 [employer] Follow Up Care 10/18/2022 10:11:54 With:Omer Mendoza MD, [facility] Address:Unknown When: Unknown [facility] Evaluation + Plan note Note Date & Type Note Facility Evaluation + Plan note No data available for this section [facility] Hospital Discharge instructions Note Date & Type Note Facility Hospital Discharge instructions No data available for this section [facility] Progress note Note Date & Type Note Facility Progress note No data available for this section [facility] Summary Purpose Family History No Family History Records Found Advance Directives No Advanced Directives Records Found Additional Source Comments Patient Care team informatio n (unrecognized section and content) Personnel Name: Omer Mendoza MD Address: Address: [address] [place] [address] Personnel Name: Omer Mendoza MD Address: Address: [address] [place] [address] Personnel Name: Omer Mendoza MD Address: Address: [address] [place] [address] Personnel Name: Omer Mendoza MD Address: Address: [address] [place] [address] Personnel Name: Omer Mendoza MD Address: Address: [address] [place] [address] INFORMATION SOURCE (unrecogn ized section and content) DATE CREATED AUTHOR 11/27/2022 [facility] FOR RECORDS PERTAINING TO PATIENTS WHO [...] BE BASED ON THE PRIMARY CLINICAL RECORDS. [facility] [employer] provides no warranty or guarantee of the accuracy or completeness of information in this document.
[2023-03-13 12:09] LABS: Age Gdln ACOG Testing Note (.); IGP, rfx Aptima HPV ASCU Note (.)
== END 2023-03-10 21:01 | disposition home or self-care (01) ==
LOC: LAB 21:00
PROVIDERS: Visit Provider Physician Assistant
DX: Z01.419 Encounter for gynecological examination (general) (routine) without abnormal findings (principal); O03.9 Complete or unspecified spontaneous abortion without complication
CPT/HCPCS: G0145

== ENCOUNTER 2023-05-18 16:01 | Outpatient (RCR) | payer BC, SELFPAY ==
--- OUTSIDE RECORDS SUMMARY | 2023-05-18 16:25 | XMS_ITS | CCD ---
Author Organization [facility] Care Team Providers Care Tank Pumper Panelboard Name Role Phone Omer Mendoza Primary Care Physician Cristian Gross Attending Unavailable Cristian rGoss Attending Unavailable Cristian Gross Attending Unavailable ESTRELLA LONG Attending Unavailable MD Omer Mendoza Attending Unavailable Cristian Gross Admitting Unavailable Cristian Gross Attending Unavailable Allergies Allergy Classification Reported Allergen(s) Allergy Type Date of Onset Reaction(s) Facility (1 source) No Known Medication Allergies; Translations: [No Known Medication Allergies] Propensity to adverse reactions (disorder) [facility] Repository Medications Current Medications Medication Drug Class(es) Dates Sig (Normalized) Sig (Original) cephalexin 500 mg oral capsule (4 sources) Cephalosporin Antibacterial Start: 10-18-2022 End: 10-25-2022 take 1 capsule by mouth every eight hours Keflex 500 mg Cap 500 mg = 1 cap(s), Oral, q8hr, X 7 day(s), # 21 cap(s), Refills(s) 0, Pharmacy: [facility]/pharmacy #[id number], 158, cm, 10/18/22 11:02:00 EDT, Height/Length Dosing, 75.2, kg, 10/18/22 11:02:00 EDT, Weight Dosing Start Date: 10/18/22 Stop Date: 10/25/22 Status: Ordered fluticasone propionate 0.05 mg/actuat metered dose nasal spray (1 source) Corticosteroid Start: 04-24-2023 End: 05-01-2023 take 1 spray(s) nasal route twice daily Flonase 0.05 mg/inh Pep 1 spray(s), Nasal, BID for 7 day(s), 16 gm, Refill(s) 0, each nostril, [id number], 158, cm, 04/24/23 9:20:00 EST, Height/Length Dosing, 69.5, kg, 04/24/23 9:20:00 EST, Weight Dosing Start Date: 04/24/23 Stop Date: 05/01/23 Status: Ordered sulfamethoxazole 800 mg / trimethoprim 160 mg oral tablet (4 sources) Dihydrofolate Reductase Inhibitor Antibacterial, Sulfonamide Antimicrobial Start: 10-18-2022 End: 10-25-2022 Bactrim D.S. 800 mg-160 mg Tab 1 tab(s), Oral, BID for 7 day(s), 14 tab(s), Refill(s) 0, [facility]/pharmacy #[id number], 158, cm, 10/18/22 11:02:00 EDT, Height/Length Dosing, 75.2, kg, 10/18/22 11:02:00 EDT, Weight Dosing Start Date: 10/18/22 Stop Date: 10/25/22 Status: Ordered Problems Problem Classification Problem Date Documented Date Episodic/Chronic Inflammatory diseases of female pelvic organs (5 sources) Abscess of vulva; Translations: [Abscess of vulva] Onset: 10-18-2022 Episodic Other nutritional; endocrine; and metabolic disorders (3 sources) Obese class I; Translations: [Body mass index (BMI) 30.0-30.9, adult] Onset: 10-18-2022 Chronic Other nutritional; endocrine; and metabolic disorders (2 sources) Body mass index 30+ - obesity 10-22-2022 Chronic Other nutritional; endocrine; and metabolic disorders (1 source) Overweight in adulthood with body mass index of 25 or more but less than 30; Translations: [Body mass index (BMI) 27.0-27.9, adult] Onset: 04-24-2023 Episodic Other skin disorders (1 source) Other skin changes; Translations: [Other skin changes] Onset: 04-24-2023 Episodic Otitis media and related conditions (1 source) Acute secretory otitis media; Translations: [Other acute nonsuppurative otitis media, bilateral] Onset: 04-24-2023 Episodic Results Test Name Value Interpretation Reference Range Facility Ambulatory Visit Summaryon 0 04-24-2023 Ambulatory Visit Summary CURRY FERRARA :1995 Visit Date:04/24/2023 Ambulatory Visit Instructions Your Diagnosis Acute effusion of both middle ears Skin pimple BMI 27.0-27.9,adult Your Care Team Attending Physician - Renato LAYNE, Cristian Wilson Primary Care Physician - Omer Mendoza MD This Is Your Medications List fluticasone nasal (Flonase 0.05 mg/inh Pep) Discharge Vitals Temperature (Oral) 36.9 ?C Heart Rate (Peripheral) 68 Blood Pressure 116/76 Height 158 cm Height 62 in Weight 69.5 kg Weight 152.9 lb BMI 27.84 Medications What How Much When Why Instructions New fluticasone nasal (Flonase 0.05 mg/ inh Pep) 1 Sprays Nasal Inhalation 2 times a day Acute effusion of both middle ears Skin pimple BMI 27.0-27.9,adult Duration: 7 Days each nostril Pickup at [facility]/pharmacy #[id number] Pharmacy Information [facility]/pharmacy #[id number]: [address] [place] [id number] [phone] Medications and Immunizations Administered Not Given influenza virus vaccine, inactivated, Patient Refuses SARS-CoV-2 mRNA (tozinameran 5y-11y) vac, Postpone due to refusal Allergies No Known Allergies No Known Medication Allergies Problems Ongoing - Any problem that you are currently receiving treatment for. Abscess of vulva BMI 30.0-30.9,adult Patient Survey You may receive a survey via text or e-mail asking about your office visit. Please share your experience with us by completing your survey. We appreciate your feedback and thank you for choosing us for your care. [facility] Family Medicine Office/Clini c Noteon 04-24-2023 Family Medicine Office/Clinic Note Chief Complaint Current pt ear pain, sinsu congestion HPI Staff 27 yo female here today with ear pain Symptoms began 1 wk ago w/ear head stuff 2 days ago Complains of left ear is worse w/sore to touch, sinus congestion, Pt denies OTC History of Present Illness I have reviewed and verified the staff HPI to be accurate for this encounter. Portions of this record have been created with voice recognition software. Occasional wrong-word or ?xzbfr-g-hcdp? substitutions may have occurred due to the inherent limitations of voice recognition software. 27-year-old female presents to convenient care today with chief complaint of ear pain. Patient states that history of ear infections in the past. States left-sided ear discomfort started approximately 1 week ago however head cold and stuffy nose started x 2 days ago. Left ear is sore to the touch and is worse compared to right with the sinus congestion. She has not tried any ioxd-qwu-heewltc medications. States also her ears have wax buildup and sometimes she needs them to be flushed so is wondering if that is a piece of it as well. She denies any fever or chills with the symptoms. Denies cough. She has no other concerns at this time. Review of Systems PHQ Score Initial Depression Screen Score: 0 SCORE ROS negative unless otherwise stated in HPI. Physical Exam Vitals & Measurements T: 36.9 ?C(Oral) HR: 68(Peripheral) BP: 116/76 SpO2: 99% HT: 62 in HT: 158 cm WT: 69.5 kg WT: 152.9 lb BMI: 27.84 General: Well developed, well nourished, in no acute distress Eyes: Bilateral conjunctiva within normal limits no injection Ears: Bilateral TMs are within normal limits no erythema or bulging. Clear fluid behind bilateral TMs. Bilateral external auditory canals with minimal amount of dry cerumen otherwise without erythema edema or concern for otitis externa. At the entrance of the left ear canal there appears to be a small pimple or pustule. Slight surrounding redness but nothing that extends into the ear canal. No swelling or redness of the left auricle. Nose: No deformity, discharge, inflammation, or lesions Mouth: Moist mucous membranes. No acute tonsillar erythema edema or exudate. No signs of peritonsillar abscess. No trismus or drooling. Neck: not assessed Lungs: Lung sounds are clear bilaterally. No wheezing rhonchi or crackles on exam. Cardio: S1, S2, regular rhythm. No murmurs gallops or rubs. Abdomen: not assessed Musculoskeletal: not assessed Extremity: not assessed Neurologic: not assessed Skin: See ear note in regards to description of small pimple-like lesion at the entrance of the left ear canal no concern for otitis externa at this time. Mental Status: Alert and oriented x3. Normal mood and affect Assessment/Plan In addition to antibiotic ointment. Discussed to continue to monitor and return if needed. Discussed no concern for otitis externa or otitis media at this time. For the treatment patient in regards to bilateral ear effusions that she does have clear fluid behind bilateral TMs but Flonase nasal spray twice daily x 7 days duration which may also help with her current nasal congestion. Patient agrees and understands plan of care will return if needed. 1. Acute effusion of both middle ears (H65.193: Other acute nonsuppurative otitis media, bilateral) Please follow-up with your primary care provider in 3 to 5 days. Contact their office tomorrow morning to schedule follow-up appointment. You were seen and evaluated in regards to left sided ear pain in which you have fluid behind the both eardrums. This is termed an effusion of the ear. You are prescribed Flonase, 1 sprays in both nostrils twice daily over the next 7 days. Continue nasal decongestant as tolerated continue to monitor. You may return for any worsening or concerning symptoms. Pt agrees and understands plan of care. Ordered: fluticasone nasal, 1 spray(s), Nasal, BID for 7 day(s), 16 gm, Refill(s) 0, each nostril, [facility] #[id number], 158, cm, 04/24/23 9:20:00 EST, Height/Length Dosing, 69.5, kg, 04/24/23 9:20:00 EST, Weight Dosing 2. Skin pimple (R23.8: Other skin changes) See above I spoke with patient in regards to small pimple-like lesion on the insertion of the left ear canal she may use warm compresses a couple times per day Ordered: fluticasone nasal, 1 spray(s), Nasal, BID for 7 day(s), 16 gm, Refill(s) 0, each nostril, [id number], 158, cm, 04/24/23 9:20:00 EST, Height/Length Dosing, 69.5, kg, 04/24/23 9:20:00 EST, Weight Dosing 3. BMI 27.0-27.9,adult (Z68.27: Body mass index [BMI] 27.0-27.9, adult) The standard range for ages 18 and older is >=18.5 and < 25 kg/m2. Your BMI today was above this range, this falls in the overweight to obese category and there are medical benefits to weight loss. We can offer counselling, referral, and/or medical support in addressing this problem. Your BMI and weight management will be followed at subsequent visits. Ordered: fluticasone nasal, 1 spray(s), Nasa (more content not included)... [facility] Comment on above: Result Comment: Elec tronically Signed By: Renato LAYNE, Cristian Wilson\.br\Date and Time Signed: 04/24/23 09:32 EST Patient Educationon 04-24-19 Patient Education ENT Otitis Media With Effusion, Adult Otitis media with effusion (OME) is inflammation and fluid (effusion) in the middle ear without having an ear infection. The middle ear is the space behind the eardrum. The middle ear is connected to the back of the throat by a narrow tube (eustachian tube). Normally the eustachian tube drains fluid out of the middle ear. A swollen eustachian tube can become blocked and cause fluid to collect in the middle ear. OME often goes away without treatment. Sometimes OME can lead to hearing problems and recurrent acute ear infections (acute otitis media). These conditions may require treatment. What are the causes? OME is caused by a blocked eustachian tube. This can result from: ? Allergies. ? Upper respiratory infections. ? Enlarged adenoids. The adenoids are areas of soft tissue located high in the back of the throat, behind the nose and the roof of the mouth. They are part of the body's natural defense system (immune system). ? Rapid changes in pressure, like when an airplane is descending or during scuba diving. In some cases, the cause of this condition is not known. What are the signs or symptoms? Common symptoms of this condition include: ? A feeling of fullness in your ear. ? Decreased hearing in the affected ear. ? Fluid draining into the ear canal. ? Pain in the ear. In some cases, there are no symptoms. How is this diagnosed? A health care provider can diagnose OME based on signs and symptoms of the condition. Your provider will also do a physical exam to check for fluid behind the eardrum. During the exam, your health care provider will use an instrument called an otoscope to look in your ear. Your health care provider may do other tests, such as: ? A hearing test. ? A tympanogram. This is a test that shows how well the eardrum moves in response to air pressure in the ear canal. It provides a graph for your health care provider to review. ? A pneumatic otoscopy. This is a test to check how your eardrum moves in response to changes in pressure. It is done by squeezing a small amount of air into the ear. How is this treated? Treatment for OME depends on the cause of the condition and the severity of symptoms. The first step is often waiting to see if the fluid drains on its own in a few weeks. Home care treatment may include: ? Vvdv-dwg-frkajda pain relievers. ? A warm, moist cloth placed over the ear. Severe cases may require a procedure to insert tubes in the ears (tympanostomy tubes) to drain the fluid. Follow these instructions at home: ? Take adcp-uho-fbdfeew and prescription medicines only as told by your health care provider. ? Keep all follow-up visits. Contact a health care provider if: ? You have pain that gets worse. ? Hearing in your affected ear gets worse. ? You have fluid draining from your ear canal. ? You have dizziness. ? You develop a fever. Get help right away if: ? You develop a severe headache. ? You completely lose hearing in the affected ear. ? You have bleeding from your ear canal. ? You have sudden and severe pain in your ear. These symptoms may represent a serious problem that is an emergency. Do not wait to see if the symptoms will go away. Get medical help right away. Call your local emergency services (911 in the [place] Do not drive yourself to the hospital. Summary ? Otitis media with effusion (OME) is inflammation and fluid (effusion) in the middle ear without having an ear infection. ? A swollen eustachian tube can become blocked and cause fluid to collect in the middle ear. ? Treatment for OME depends on the cause of the condition and the severity of symptoms. ? Many times, treatment is not needed because the fluid drains on its own in a few weeks. ? Sometimes OME can lead to hearing problems and recurrent acute ear infections (acute otitis media), which may require treatment. This information is not intended to replace advice given to you by your health care provider. Make sure you discuss any questions you have with your health care provider. Document Revised: 06/06/2021 Document Reviewed: 06/06/2021 Elsevier Patient Education ? 2022 [employer] Nutrition BMI for Adults What is BMI? [...] a weight problem that may be related t (more content not included)... [facility] Auth for Release of Medical Recordson 11-19-2022 Auth for Release of Medical Records [id number] [facility] Family Medicine Office/Clini c Noteon 10-22-2022 Family [...] and agree with above documented HPI by ophthalmic medical technologist. Portions of this record may have been created with voice recognition artificial intelligence software, specifically [employer] and or [employer]OWIO. Substitutions may have occurred due to the inherent limitations of voice recognition and artificial intelligence software. Patient is a 27-year-old female presents to [facility] care, for follow-up appointment, patient was seen [...] lumbar back pain on examination. : RT Yarelis/DYANA was accredited legal secretary during the exam. Status post I&D of [...] and affect Assessment/Plan 27-year-old female presented to [facility], for status post I&D abscess of [...] With When Contact Information Omer Mendoza MD, [facility], MED Additional Instructions: Patient Education BMI for Adults Skin Abscess, Jpto-ic-Ejpp Problem List/Past Medical History Ongoing Abscess of [...] Not Given Postpone due to refusal Normal [facility] Comment on above: Result Comment: Elec [...] these instructions at home: Medicines ? Take xfmd-ryf-wppdrbl and prescription medicines only as told by [...] cannot use soap and water, use hand commercial review appraiser. ? Check your abscess every day for signs that the infection is getting worse. Check for: ? More redness, swelling, or pain. ? More fluid or blood. ? Warmth. ? More pus or a bad smell. General instructions ? To avoid spreading the infection: ? Do not share personal care items, towels, or hot tubs with others. ? Avoid making pyxe-yr-criy contact with other people. ? Keep all [...] provider. Document Revised: 11/18/2021 Document Reviewed: 11/18/2021 [employer] Patient Education ? 2022 [employer]. Nutrition BMI for Adults What is BMI? [...] numbers. This can be done either in Stateless ([place] or metric measurements. Note that charts and online BMI calculators are available to help you find your BMI quickly and easily without having to do these calculations yourself. To calculate your BMI in Stateless ([place] measurements: 1. Measure your weight in [...] is (more content not included)... [facility] Family Medicine Office/Clini c Noteon 10-20-2022 [...] with voice recognition software. Occasional wrong-word or ?eyjno-d-nrig? substitutions may have occurred due to the inherent limitations of voice recognition software. 27 yo female presents to [facility] care today with chief complaint of [...] subsequent visits. Follow-up With When Contact Information Oemr Mendoza MD, [facility], MED Additional Instructions: Patient Education BMI for Adults Incision and Drainage, Care After Skin Abscess, Iylm-lu-Crez Problem List/Past Medical History Ongoing No chronic [...] Given Po (more content not included)... Normal [facility] Comment on above: Result Comment: Elec tronically Signed By: Renato LAYNE, Cristian Wilson\.br\Date and Time Signed: 10/20/22 11:48 EDT No Panel InformationOrdered By: Jami Buck on 10-20-2022 GS 3+ White Blood Cells Occasional Gram Negative Rods [facility] Patient Educationon 10-21-19 Patient Education Infectious Disease [...] these instructions at home: Medicines ? Take unns-hjs-lsljxnt and prescription medicines only as told by [...] and water are not available, use hand commercial review appraiser. ? Change your dressing and packing as [...] 11/21/2021 E (more content not included)... Normal [facility] Patient [facility] [address], [place] [id number] October 20, 2022 CURRY FERRARA [address] [place] [id number] : 1995 Please excuse CURRY FERRARA from work . Date and/or Time of Absence: From: 10/20/2022 To: 10/21/2022 May return to work on: 10/21/2022 Restrictions: None Comments: Please excuse due to an acute illness. Provider Signature: Cristian Gross PA-C Physician Activities Volunteer [facility] [address] [place] [address]. 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 Portions of this record have been created with voice recognition software. Occasional wrong-word or ?eteoa-k-gynt? substitutions may have occurred due to the [...] Recently moved back to the area from [place] does not currently have a primary care provider or passenger representative. Patient states she tried using yhcd-bte-nrjnpxi Dermoplast with minimal relief. Has otherwise been [...] day(s), # 21 cap(s), Refills(s) 0, Pharmacy: [id number], 158, cm, 10/18/22 11:02:00 EDT, Height/Length [...] With When Contact Information Omer Mendoza MD, [facility], MED Additional Instructions: Patient Education BMI for Adults Skin Abscess, Pdln-uq-Vvrx Problem List/Past Medical History Ongoing No chronic problems Historical No qualifying data Medications Bactrim D.S. 800 mg-160 mg Tab, 1 tab(s), Oral, BID Keflex 500 mg Cap, 500 mg= 1 cap(s), Oral, q8hr Allergies No Known Allergies No Known Medication Allergies Social History Tob (more content not included)... Normal [facility] Comment on above: Result Comment: Elec [...] these instructions at home: Medicines ? Take wgcb-wlj-totviqf and prescription medicines only as told by [...] cannot use soap and water, use hand commercial review appraiser. ? Check your abscess every day for signs that the infection is getting worse. Check for: ? More redness, swelling, or pain. ? More fluid or blood. ? Warmth. ? More pus or a bad smell. General instructions ? To avoid spreading the infection: ? Do not share personal care items, towels, or hot tubs with others. ? Avoid making axnq-ge-bwqu contact with other people. ? Keep all [...] provider. Document Revised: 11/18/2021 Document Reviewed: 11/18/2021 [employer] Patient Education ? 2022 [employer]. Nutrition BMI for Adults What is BMI? [...] numbers. This can be done either in Stateless ([place] or metric measurements. Note that charts and online BMI calculators are available to help you find your BMI quickly and easily without having to do these calculations yourself. To calculate your BMI in Stateless ([place] measurements: 1. Measure your weight in [...] is (more content not included)... [facility] Vital Signs Date Time Vital Sign Value Performing Clinician Facility 04-24-2023 09:15-0500 Blood Pressure Location Cristian Gross [facility] 04-24-2023 09:15-0500 Body temperature 98.42 [degF] Cristian Gross [facility] 04-24-2023 09:15-0500 Diastolic blood pressure 76 mm[Hg] Cristian Gross [facility] 04-24-2023 09:15-0500 Heart rate 68 /min Cristian Renato [facility] 04-24-2023 09:15-0500 SaO2% (BldA) [Mass fraction] 99 % [facility] Renato [facility] 04-24-2023 09:15-0500 Systolic blood pressure 116 mm[Hg] Cristian Gross [facility] 10-22-2022 09:02-0400 Blood Pressure Location SAPPHIRE LONG [facility] 10-22-2022 09:02-0400 Body temperature 98.06 [degF] ESTRELLA ARANATIZ [facility] 10-22-2022 09:02-0400 Diastolic blood pressure 68 mm[Hg] ESTRELLA LONG [facility] 10-22-2022 09:02-0400 Heart rate 95 /min ESTRELLA LONG [facility] 10-22-2022 09:02-0400 SaO2% (BldA) [Mass fraction] 99 % ESTRELLA LONG [facility] 10-22-2022 09:02-0400 Systolic blood pressure 106 mm[Hg] ESTRELLA LONG [facility] 10-20-2022 09:25-0400 Body temperature 98.6 [degF] Cristian Gonzalezpsey [facility] 10-20-2022 09:25-0400 Diastolic blood pressure 72 mm[Hg] Cristian Renato [facility] 10-20-2022 09:25-0400 Heart rate 100 /min Cristian Renato [facility] 10-20-2022 09:25-0400 SaO2% (BldA) [Mass fraction] 98 % Cristian Renato [facility] 10-20-2022 09:25-0400 Systolic blood pressure 102 mm[Hg] Cristianngozi Sepulvedaey [facility] 10-18-2022 10:58-0400 Blood Pressure Location Cristian Gonzalezpsey [facility] 10-18-2022 10:58-0400 Body temperature 98.24 [degF] Cristian Gonzalezpsey [facility] 10-18-2022 10:58-0400 Diastolic blood pressure 82 mm[Hg] Cristian Gross [facility] 10-18-2022 10:58-0400 Heart rate 93 /min Cristian Renato [facility] 10-18-2022 10:58-0400 SaO2% (BldA) [Mass fraction] 99 % Cristianngozi Sepulvedaey [facility] 10-18-2022 10:58-0400 Systolic blood pressure 124 mm[Hg] Cristian Gross [facility] Encounters Encounter Date Encounter Type Care Provider Facility Start: 04-24-2023 End: 04-25-2023 ambulatory Cristian Gross Facility:[facility] Start: 04-24-2023 End: 04-24-2023 Patient encounter procedure Cristian Gross [facility] Start: 10-22-2022 End: 10-23-2022 ambulatory ESTRELLA LONG Facility:[facility] Start: 10-22-2022 End: 10-22-2022 Patient encounter procedure ESTRELLA ARANATIZ [facility] Start: 10-20-2022 End: 10-21-2022 ambulatory Cristian Gross Facility:[facility] Start: 10-20-2022 End: 10-20-2022 Lab Drop off Cristian Gross [facility] Start: 10-20-2022 End: 10-20-2022 Patient encounter procedure Cristian Gross [facility] Start: 10-18-2022 End: 10-19-2022 ambulatory Cristian Gross Facility:[facility] Start: 10-18-2022 End: 10-18-2022 Patient encounter procedure Cristian Gross [facility] Start: 09-01-2022 End: 09-02-2022 ambulatory MD Omer Mendoza Facility:[facility] Start: 09-01-2022 End: 09-01-2022 Patient encounter procedure Omer Mendoza [facility] Start: 08-20-2022 ambulatory Cristian Gross Facility: [facility] Immunizations Immunization Date Immunization Notes Care Provider Fa cility NEGATED: Highlighted row has not occurred!04-24-2023 influenza virus vaccine, unspecified formulation Cristian Gross [facility] NEGATED: Highlighted row has not occurred!04-24-2023 SARS-CoV-2 mRNA (tozinameran 5y-11y) vaccine Cristian Gross [facility] NEGATED: Highlighted row has not occurred!10-18-2022 SARS-CoV-2 mRNA (tozinameran 5y-11y) vaccine Cristian Gross [facility] Payers Date Payer Category Payer Unknown [id number] 1995 Unknown [id number] 1995 Unknown [id number] [id number] 1995 Unknown [id number] [id number] [id number] 1995 Unknown [id number] 2.16.8 [id number] 1995 Unknown [id number] 2.16.8 [id number] 1995 Unknown [id number] [id number] [id number] Social History Date Type Detail Facility Tobacco smoking status No Smokin g Status Entered [facility] [place] Sex Assigned At Female [facility] Start: 10-18-2022 End: 04-24-2023 Tobacco smoking status Never smoked tobacco (finding) [facility] Tobacco smoking status Never [facility] Functional Status Date Assessment Result Facility 04-24-2023 Functional Status N/A [facility] 10-22-2022 Functional Status N/A [facility] 10-20-2022 Functional Status N/A [facility] 10-18-2022 Functional Status N/A [facility] Hospital Discharge instructions 04-24-2023 Note Date & Type Note Facility 04-24-2023 Hospital Discharg e instructions Patient Education 04/24/2023 09:31:52 BMI for Adults BMI for Adults What [...] numbers. This can be done either in Stateless ([place] or metric measurements. Note that charts and online BMI calculators are available to help you find your BMI quickly and easily without having to do these calculations yourself. To calculate your BMI in Stateless ([place] measurements: 1.Measure your weight in pounds [...] Centers for Disease Control and Prevention: www.cdc.gov [place] [employer] Association: www.heart.org National Heart, Lung, and Blood Sullivan: www.nhlbi.nih.gov Summary Body mass index (BMI) is a number that is calculated from a person's weight and height. BMI may help estimate how much of a person's weight is composed of fat. BMI can help identify those who may be at higher risk for certain medical problems. BMI can be measured using Stateless measurements or metric measurements. BMI charts are used to identify whether you are underweight, normal weight, overweight, or obese. This information is not intended to replace advice given to you by your health care provider. Make sure you discuss any questions you have with your health care provider. Document Revised: 11/02/2019 Document Reviewed: 09/09/2019 [employer] Patient Education 2022 [employer] 04/24/2023 09:31:49 Otitis Media With Effusion, Adult Otitis Media With Effusion, Adult Otitis media with effusion (OME) is inflammation and fluid (effusion) in the middle ear without having an ear infection. The middle ear is the space behind the eardrum. The middle ear is connected to the back of the throat by a narrow tube (eustachian tube). Normally the eustachian tube drains fluid out of the middle ear. A swollen eustachian tube can become blocked and cause fluid to collect in the middle ear. OME often goes away without treatment. Sometimes OME can lead to hearing problems and recurrent acute ear infections (acute otitis media). These conditions may require treatment. What are the causes? OME is caused by a blocked eustachian tube. This can result from: Allergies. Upper respiratory infections. Enlarged adenoids. The adenoids are areas of soft tissue located high in the back of the throat, behind the nose and the roof of the mouth. They are part of the body's natural defense system (immune system). Rapid changes in pressure, like when an airplane is descending or during scuba diving. In some cases, the cause of this condition is not known. What are the signs or symptoms? Common symptoms of this condition include: A feeling of fullness in your ear. Decreased hearing in the affected ear. Fluid draining into the ear canal. Pain in the ear. In some cases, there are no symptoms. How is this diagnosed? A health care provider can diagnose OME based on signs and symptoms of the condition. Your provider will also do a physical exam to check for fluid behind the eardrum. During the exam, your health care provider will use an instrument called an otoscope to look in your ear. Your health care provider may do other tests, such as: A hearing test. A tympanogram. This is a test that shows how well the eardrum moves in response to air pressure in the ear canal. It provides a graph for your health care provider to review. A pneumatic otoscopy. This is a test to check how your eardrum moves in response to changes in pressure. It is done by squeezing a small amount of air into the ear. How is this treated? Treatment for OME depends on the cause of the condition and the severity of symptoms. The first step is often waiting to see if the fluid drains on its own in a few weeks. Home care treatment may include: Gpgc-vqa-gsiyvqf pain relievers. A warm, moist cloth placed over the ear. Severe cases may require a procedure to insert tubes in the ears (tympanostomy tubes) to drain the fluid. Follow these instructions at home: Take xjmc-ntg-rgdjflq and prescription medicines only as told by your health care provider. Keep all follow-up visits. Contact a health care provider if: You have pain that gets worse. Hearing in your affected ear gets worse. You have fluid draining from your ear canal. You have dizziness. You develop a fever. Get help right away if: You develop a severe headache. You completely lose hearing in the affected ear. You have bleeding from your ear canal. You have sudden and severe pain in your ear. These symptoms may represent a serious problem that is an emergency. Do not wait to see if the symptoms will go away. Get medical help right away. Call your local emergency services (911 in the [place] Do not drive yourself to the hospital. Summary Otitis media with effusion (OME) is inflammation and fluid (effusion) in the middle ear without having an ear infection. A swollen eustachian tube can become blocked and cause fluid to collect in the middle ear. Treatment for OME depends on the cause of the condition and the severity of symptoms. Many times, treatment is not needed because the fluid drains on its own in a few weeks. Sometimes OME can lead to hearing problems and recurrent acute ear infections (acute otitis media), which may require treatment. This information is not intended to replace advice given to you by your health care provider. Make sure you discuss any questions you have with your health care provider. Document Revised: 06/06/2021 Document Reviewed: 06/06/2021 Elsevier Patient Education 2022 [employer]. Follow Up Care 04/24/2023 08:44:27 With:Omer Mendoza MD, [facility] Address:Unknown When: Unknown [facility] Clinical Note 10-22-2022 Note Date & Type Note Facility 10-22-2022 Note Microbiology PROCEDURE: Wound Culture [R1] SOURCE: Wound BODY SITE: Vulva COLLECTED DATE/TIME: 10/20/2022 10:16 EDT RECEIVED DATE/TIME: 10/20/2022 11:58 EDT START DATE/TIME: 10/20/2022 11:58 EDT FREE TEXT SOURCE: Cristian Gross PA-C, PA-C, Cristian Wilson FINAL REPORTS Final Report [] Verified Date/Time: 10/22/2022 12:35 EDT 1+ Bacteroides species Presumptive isolated. 1+ Propionibacterium species Presumptive isolated. STAINS Gram Stain Report [] Verified Date/Time: 10/20/2022 16:47 EDT 3+ White Blood Cells Occasional Gram Negative Rods Performing Locations R1: This test was performed at: [facility], [address] [place] [address], [address] , , [facility] Comment on above: Performed By: #### [id number] #### [facility] [address] [place] [address] Hospital Discharge instructions 10-22-2022 Note Date & [...] numbers. This can be done either in Stateless ([place] or metric measurements. Note that charts and online BMI calculators are available to help you find your BMI quickly and easily without having to do these calculations yourself. To calculate your BMI in Stateless ([place] measurements: 1.Measure your weight in pounds [...] Centers for Disease Control and Prevention: www.cdc.gov [place] Heart Association: www.heart.org National Heart, Lung, and Blood Sullivan: www.nhlbi.nih.gov Summary Body mass index (BMI) is a number that is calculated from a person's weight and height. BMI may help estimate how much of a person's weight is composed of fat. BMI can help identify those who may be at higher risk for certain medical problems. BMI can be measured using Stateless measurements or metric measurements. BMI charts are used to identify whether you are underweight, normal weight, overweight, or obese. This information is not intended to replace advice given to you by your health care provider. Make sure you discuss any questions you have with your health care provider. Document Revised: 11/02/2019 Document Reviewed: 09/09/2019 [employer] Patient Education 2022 [employer]. 10/22/2022 09:39:10 Skin Abscess, Jicy-nq-Aump Skin Abscess A skin abscess is an [...] Follow these instructions at home: Medicines Take kkbs-ugb-eqqmmgy and prescription medicines only as told by [...] cannot use soap and water, use hand commercial review appraiser. Check your abscess every day for signs that the infection is getting worse. Check for: ?More redness, swelling, or pain. ?More fluid or blood. ?Warmth. ?More pus or a bad smell. General instructions To avoid spreading the infection: ?Do not share personal care items, towels, or hot tubs with others. ?Avoid making ygou-sd-ynbq contact with other people. Keep all follow-up [...] provider. Document Revised: 11/18/2021 Document Reviewed: 11/18/2021 [employer] Patient Education 2022 [employer]Score. Follow Up Care 10/22/2022 08:56:37 With:Omer Mendoza MD, [facility] Address:Unknown When: Unknown [facility] Hospital Discharge instructions 10-20-2022 Note [...] numbers. This can be done either in Stateless ([place] or metric measurements. Note that charts and online BMI calculators are available to help you find your BMI quickly and easily without having to do these calculations yourself. To calculate your BMI in Stateless ([place] measurements: 1.Measure your weight in pounds [...] Centers for Disease Control and Prevention: www.cdc.gov [place] Heart Association: www.heart.org National Heart, Lung, and Blood Sullivan: www.nhlbi.nih.gov Summary Body mass index (BMI) is a number that is calculated from a person's weight and height. BMI may help estimate how much of a person's weight is composed of fat. BMI can help identify those who may be at higher risk for certain medical problems. BMI can be measured using Stateless measurements or metric measurements. BMI charts are used to identify whether you are underweight, normal weight, overweight, or obese. This information is not intended to replace advice given to you by your health care provider. Make sure you discuss any questions you have with your health care provider. Document Revised: 11/02/2019 Document Reviewed: 09/09/2019 [employer] Patient Education 2022 [employer] 10/20/2022 11:48:05 Incision and Drainage, Care After [...] Follow these instructions at home: Medicines Take rxlj-fcu-kobqdvm and prescription medicines only as told by [...] and water are not available, use hand commercial review appraiser. Change your dressing and packing as told [...] provider. Document Revised: 11/21/2021 Document Reviewed: 11/21/2021 [employer] Patient Education 2022 [employer]. 10/20/2022 11:48:04 Skin Abscess, Szht-pq-Smyy Skin Abscess A skin abscess is an [...] Follow these instructions at home: Medicines Take mloj-sxd-toqwotu and prescription medicines only as told by [...] cannot use soap and water, use hand commercial review appraiser. Check your abscess every day for signs that the infection is getting worse. Check for: ?More redness, swelling, or pain. ?More fluid or blood. ?Warmth. ?More pus or a bad smell. General instructions To avoid spreading the infection: ?Do not share personal care items, towels, or hot tubs with others. ?Avoid making quts-bd-qvsx contact with other people. Keep all follow-up [...] provider. Document Revised: 11/18/2021 Document Reviewed: 11/18/2021 [employer] Patient Education 2022 [email or web address] Follow Up Care 10/20/2022 09:18:08 With:Omer Mendoza MD, [facility] Address:Unknown When: Unknown [facility] Hospital Discharge instructions 10-18-2022 Note [...] numbers. This can be done either in Stateless ([place].S[place] or metric measurements. Note that charts and online BMI calculators are available to help you find your BMI quickly and easily without having to do these calculations yourself. To calculate your BMI in Stateless ([place] measurements: 1.Measure your weight in pounds [...] Centers for Disease Control and Prevention: www.cdc.gov [place] Heart Association: www.heart.org National Heart, Lung, and Blood Sullivan: www.nhlbi.nih.gov Summary Body mass index (BMI) is a number that is calculated from a person's weight and height. BMI may help estimate how much of a person's weight is composed of fat. BMI can help identify those who may be at higher risk for certain medical problems. BMI can be measured using Stateless measurements or metric measurements. BMI charts are used to identify whether you are underweight, normal weight, overweight, or obese. This information is not intended to replace advice given to you by your health care provider. Make sure you discuss any questions you have with your health care provider. Document Revised: 11/02/2019 Document Reviewed: 09/09/2019 [employer] Patient Education 2022 [employer]. 10/18/2022 11:50:00 Skin Abscess, Qpfq-do-Xnil Skin Abscess A skin abscess is an [...] Follow these instructions at home: Medicines Take gyai-nvi-oznjbsx and prescription medicines only as told by [...] cannot use soap and water, use hand commercial review appraiser. Check your abscess every day for signs that the infection is getting worse. Check for: ?More redness, swelling, or pain. ?More fluid or blood. ?Warmth. ?More pus or a bad smell. General instructions To avoid spreading the infection: ?Do not share personal care items, towels, or hot tubs with others. ?Avoid making cjrs-sm-mefu contact with other people. Keep all follow-up [...] provider. Document Revised: 11/18/2021 Document Reviewed: 11/18/2021 [employer] Patient Education 2022 [employer]Score. Follow Up Care 10/18/2022 10:11:54 With:Omer Mendoza MD, [facility] Address:Unknown When: Unknown [facility] Evaluation + Plan note Note Date & Type Note Facility Evaluation + Plan note No data available for this section [facility] Hospital Discharge instructions Note Date & Type Note Facility Hospital Discharge instructions No data available for this section [facility] Progress note Note Date & Type Note Facility Progress note No data available for this section [facility] Summary Purpose Family History No Family History Records Found Advance Directives No Advanced Directives Records Found Additional Source Comments Patient Care team informatio n (unrecognized section and content) Personnel Name: Omer Mendoza MD Address: Address: [address] [place] [address] Personnel Name: Omer Mendoza MD Address: Address: [address] [place] [address] Personnel Name: Omer Mendoza MD Address: Address: [address] [place] [address] Personnel Name: Omer Mendoza MD Address: Address: [address] [place] [address] Personnel Name: Omer Mendoza MD Address: Address: [address] [place] [address] Personnel Name: Omer Mendoza MD Address: Address: [address] [place] [address] INFORMATION SOURCE (unrecogn ized section and content) DATE CREATED AUTHOR 04/26/[address] [facility] FOR RECORDS PERTAINING TO PATIENTS WHO [...] BE BASED ON THE PRIMARY CLINICAL RECORDS. [facility] [employer] provides no warranty or guarantee of the accuracy or completeness of information in this document.
[2023-05-18 18:11] LABS: HCG Quantitative 4 mIU/mL
[2023-05-20 17:05] LABS: HCG Quantitative 31 mIU/mL
== END 2023-05-24 08:46 | disposition home or self-care (01) ==
LOC: LAB 16:01
PROVIDERS: Visit Provider Obstetrics & Gynecology
DX: N92.6 Irregular menstruation, unspecified (principal)
CPT/HCPCS: 36415; 84702

== ENCOUNTER 2023-06-08 12:00 | Outpatient (RCR) | payer BC, SELFPAY ==
[2023-06-08 12:52] LABS: HCG Quantitative 2541 mIU/mL
[2023-06-10 15:55] LABS: HCG Quantitative 4176 mIU/mL
== END 2023-06-23 10:39 | disposition home or self-care (01) ==
LOC: LAB 12:00
PROVIDERS: Visit Provider Obstetrics & Gynecology
DX: N92.6 Irregular menstruation, unspecified (principal)
CPT/HCPCS: 36415; 84702

== ENCOUNTER 2023-06-25 09:56 | Outpatient (RCR) | payer BC, SELFPAY ==
--- OUTSIDE RECORDS SUMMARY | 2023-06-25 10:09 | XMS_ITS | CCD ---
Author Organization [facility] Care Team Providers Care Box Icer Name Role Phone Omer Mendoza Primary Care Physician Cristian Gross Attending Unavailable ESTRELLA LONG Attending Unavailable MD Omer Mendoza Attending Unavailable Jair Thakkar Attending Unavailable Cristian Gross Admitting Unavailable Cristian Gross Attending Unavailable Cristian Gross Attending Unavailable Cristian Gross Attending Unavailable Allergies Allergy Classification Reported Allergen(s) Allergy Type Date of Onset Reaction(s) Facility (1 source) No Known Medication Allergies; Translations: [No Known Medication Allergies] Propensity to adverse reactions (disorder) [facility] Repository Medications Current Medications Medication Drug Class(es) Dates Sig (Normalized) Sig (Original) cephalexin 500 mg oral capsule (4 sources) Cephalosporin Antibacterial Start: 10-18-2022 End: 10-25-2022 take 1 capsule by mouth every eight hours Keflex 500 mg Cap 500 mg = 1 cap(s), Oral, q8hr, X 7 day(s), # 21 cap(s), Refills(s) 0, Pharmacy: [facility]/pharmacy #[id number], 158, cm, 10/18/22 11:02:00 EDT, Height/Length Dosing, 75.2, kg, 10/18/22 11:02:00 EDT, Weight Dosing Start Date: 10/18/22 Stop Date: 10/25/22 Status: Ordered fluticasone propionate 0.05 mg/actuat metered dose nasal spray (1 source) Corticosteroid Start: 04-24-2023 End: 05-01-2023 take 1 spray(s) nasal route twice daily Flonase 0.05 mg/inh [place] 1 spray(s), Nasal, BID for 7 day(s), [...] Test Name Value Interpretation Reference Range Facility Consent for Anesthesiaon Consent for Anesthesia [id number] .00TIFF Normal [facility] Consent for Procedure/Surger yon 06-22-2023 Consent for Procedure/Surgery [id number] .00TIFF Normal [facility] IntraOperative Documentson 0 06-22-2023 IntraOperative Documents [id number]# 1.00TIFF Normal [facility] IntraOperative Documents [id number] .00TIFF Normal [facility] Main OR Intraoperative Recor don 06-22-2023 Main OR Intraoperative Record IntraOp Document Type FT Summary Primary Physician: Jair Thakkar MD Finalized Date/Time: 06/22/23 08:41:36 Pt. Name: CURRY FERRARA D.O.B./Sex: 1995 Female Med Rec #: [id number] Physician: Financial #: [id number] Pt. Type: A Room/Bed: [place] [address] Admit/Disch: 06/19/23 10:58:06 - 06/20/23 12:15:00 Institution: Case Times FT Entry 1 Patient Times In Room 06/19/23 16:01:00 Out Room 06/19/23 18:14:00 Procedure Times Start 06/19/23 16:20:00 Stop 06/19/23 18:09:00 Anesthesia Times Start 06/19/23 16:01:00 Stop 06/19/23 18:14:00 Last Modified By: Brenda ROMAN, Avery Walker 06/19/23 18:14:55 General Comments: 06/22/23 Chart opened for charge review per Katie Vaz RN. [place] Case Attendance FT Entry 1 Entry 2 Entry 3 Case Attendee Bijan CRISOSTOMO, Jair Nguyễn RN, Elsi Gutierrez RN, Avery Dowell Role Performed Surgeon - Primary Sales Floor Manager - Relief Sales Floor Manager - Primary Time In 06/19/23 16:01:00 06/19/23 16:14:00 06/19/23 16:01:00 Time Out 06/19/23 18:03:00 06/19/23 16:46:00 06/19/23 18:14:00 Procedure LAPAROSCOPY DIAGNOSTIC LAPAROSCOPY DIAGNOSTIC LAPAROSCOPY DIAGNOSTIC Comments Last Modified By: Brenda ROMAN, Avery Gutierrez RN, Avery Gutierrez RN, Avery Walker 06/19/23 18:14:56 06/19/23 18:14:56 06/19/23 18:14:56 Entry 4 Entry 5 Entry 6 Case Attendee [place] HOME MANAGEMENT SUPERVISOR, Nereyda Grullon CAR PARKER, Becca Roche Role Performed SORT WORKER Scrub - Primary CAR PARKER Time In 06/19/23 16:01:00 06/19/23 16:01:00 06/19/23 16:01:00 Time Out 06/19/23 18:14:00 06/19/23 16:49:00 06/19/23 16:58:00 Procedure LAPAROSCOPY DIAGNOSTIC LAPAROSCOPY DIAGNOSTIC LAPAROSCOPY DIAGNOSTIC Comments dr. kebede supervising Last Modified By: Brenda ROMAN, Avery Gutierrez RN, Avery Gutierrez RN, Avery Walker 06/19/23 18:14:56 06/19/23 18:14:56 06/19/23 18:14:56 Entry 7 Entry 8 Case Attendee Jasiel SHAH, Tresa Kebede Jr., DO, Jose Francisco Kerr Role Performed Scrub - Relief Anesthesiologist of Record Time In 06/19/23 16:47:00 06/19/23 16:59:00 Time Out 06/19/23 18:14:00 06/19/23 18:14:00 Procedure LAPAROSCOPY DIAGNOSTIC LAPAROSCOPY DIAGNOSTIC Comments Last Modified By: Brenda ROMAN, Avery Gutierrez RN, Avery Walker 06/19/23 18:14:56 06/19/23 18:14:56 Perioperative Protocols FT Pre-Care Text: Implements protective measures prior to operative or invasive procedure, confirms identity before the operative or invasive procedure, verifies operative procedure, surgical site, and laterality Entry 1 Procedure(s) LAPAROSCOPY DIAGNOSTIC Patient Identity Birthday, Blood Band, Verified (select at ID Band Check, Patient least 2): Participation Consents / H and P Anesthesia Consent, Operative Site N/A Verified HandP, Surgery/Procedure Marking Verified Consent, Transfusion Consent Surgical Site Yes Laterality Verified Yes Verified Procedure Verified Yes Correct Patient Yes Position Verified Availability Equipment, Medication Prep Dry Yes Verified (If Applicable) PreOp Antibiotic No Time Out Bijan CRISOSTOMO, Jair Ferrara, Given Participants Gopi ROMAN, Elsi Dowell, Brenda ROMAN, Dale Schofield Alejandro, McClain CST, Nereyda Ray Time Out Complete 06/19/23 16:18:00 Outcomes Met? Yes Last Modified By: Elsi Nguyễn RN 06/19/23 16:29:27 Post-Care Text: The patient is free from signs and symptoms of injury caused by extraneous objects Allergy Information FT Pre-Care Text: Verifies allergies Entry 1 Allergies Reviewed? Yes Allergies Reviewed Self/Patient With Outcomes Met? Yes Last Modified By: Elsi Nguyễn RN 06/19/23 16:29:40 Post-Care Text: The patient received appropriate medication(s) safely administered during the perioperative period Surgical Procedures FT Entry 1 Procedure Description Procedure LAPAROSCOPY DIAGNOSTIC Surgeon Description DIAGNOSTIC LAPAROSCOPY, MANAGEMENT OF ECTOPIC , EVACUATION OF HEMATOPERITONEUM, LYSIS OF ADHESIONS, RIGHT PARTIAL SALPINGECTOMY Primary Procedure Yes Primary Surgeon Bijan CRISOSTOMO, Jair Ferrara Start 06/19/23 16:20:00 Stop 06/19/23 18:09:00 Anesthesia Type General Surgical Service Obstetric Gynecology Wound Class 2 - Clean-Contaminated Last Modified By: Brenda ROMAN, Avery Walker 06/19/23 18:23:49 General Case Data FT Pre-Care Text: Classifies surgical wound, implements aseptic technique, initiates traffic control Entry 1 Case Information OR OR 4 FT Case Level Level 3 Wound Class 2 - Clean-Contaminated Specialty Obstetric Gynecology ASA Class 2E Preop Diagnosis ectopic Postop Same As Preop Yes Postop Diagnosis ectopic Outcomes Met? Yes Last Modified By: Татьяна ROMAN, BSN, [place] 06/22/23 08:38:45 Post-Care Text: The patient is free from signs and symptoms of infection Skin Assessment (Pre Procedure) FT Pre-Care Text: Implements protective measures to prevent skin/ tissue injury due to thermal or mechanical sources Evaluates for signs and symptoms of physical injury to skin and ti (more content not included)... [facility] Discharge Instructionson Discharge Instructions [id number]# 1.00TIFF [facility] CBC w/Indiceson 06-20-2023 Erythrocyte distribution width (RBC) [Ratio] 14.4 % High 10.9-14.2 [facility] Comment on above: Order Comment: do no t draw until 630am patient had a unit of blood heb 06/20/2023 04:45:39 EDT Performed By: #### 2 [id number] ####[facility] [address] [place] [address] Hematocrit (Bld) [Volume fraction] 27.0 % Low 34.0-46.0 [facility] Comment on above: Order Comment: do no t draw until 630am patient had a unit of blood heb 06/20/2023 04:45:39 EDT Performed By: #### 2 [id number] ####[facility] [address] [place] [address] Hemoglobin (Bld) [Mass/Vol] 9.4 g/dL Low 12.0-16.0 [facility] Comment on above: Order Comment: do no t draw until 630am patient had a unit of blood heb 06/20/2023 04:45:39 EDT Performed By: #### 2 [id number] ####[facility] [address] [place] [address] MCH (RBC) [Entitic mass] 30.5 pg Normal 27.0-34.0 [facility] Comment on above: Order Comment: do no t draw until 630am patient had a unit of blood heb 06/20/2023 04:45:39 EDT Performed By: #### 2 [id number] ####[facility] [address] [place] [address] MCHC (RBC) [Mass/Vol] 34.7 g/dL Normal 31.4-36.0 [facility] Comment on above: Order Comment: do no t draw until 630am patient had a unit of blood heb 06/20/2023 04:45:39 EDT Performed By: #### 2 [id number] ####[facility] [address] [place] [address] MCV (RBC) [Entitic vol] 87.7 fL Normal 80.0-100.0 [facility] Comment on above: Order Comment: do no t draw until 630am patient had a unit of blood heb 06/20/2023 04:45:39 EDT Performed By: #### 2 [id number] ####[address] [address] Platelet mean volume (Bld) [Entitic vol] 7.4 fL Normal 6.4-10.8 [facility] Comment on above: Order Comment: do no t draw until 630am patient had a unit of blood heb 06/20/2023 04:45:39 EDT Performed By: #### 2 [id number] ####[address] [address] Platelets (Bld) [#/Vol] 209.0 E9/L Normal 150.0-500.0 [facility] Comment on above: Order Comment: do no t draw until 630am patient had a unit of blood heb 06/20/2023 04:45:39 EDT Performed By: #### 2 [id number] ####[address] [address] RBC (Bld) [#/Vol] 3.1 E12/L Low 4.3-5.9 [facility] Comment on above: Order Comment: do no t draw until 630am patient had a unit of blood heb 06/20/2023 04:45:39 EDT Performed By: #### 2 [id number] ####[address] [address] RBC size Nom (Bld) NORMAL Invalid Interpretation Code [facility] Comment on above: Order Comment: do no t draw until 630am patient had a unit of blood heb 06/20/2023 04:45:39 EDT Performed By: #### 2 [id number] ####[address] [address] WBC corrected for nucl RBC Auto (Bld) [#/Vol] 11.6 E9/L High 4.0-11.0 [facility] Comment on above: Order Comment: do no t draw until 630am patient had a unit of blood heb 06/20/2023 04:45:39 EDT Performed By: #### 2 [id number] ####[facility] [address] [place] [address] Discharge Note-Nursingon Discharge Note-Nursing CURRY FERRARA :1995 Visit Date:06/19/2023 Inpatient Discharge Instructions Reason for Your Visit Pt. came here d/t abd'l pain, nausea, dizziness that started yesterday. Denies vision changes. Pt is 8 wks . said she was pale and thought she'll passed out. Denies urianry sx, no vaginal discharges. Said she feels her hands and feet cold. Your Diagnosis Abdominal pain - Anemia due to acute blood loss Dizziness Ectopic , Ruptured ectopic Hx of unilateral salpingectomy Nausea S/P laparoscopy, S/P laparoscopy with lysis of adhesions Suprapubic discomfort Weakness or fatigue Tests Performed Pathology Tissue Exam -- Results Pending -- UA with Cult Rflx -- Results Pending -- US 1st Trimester US Transvaginal Please visit your patient portal for your results or contact your primary care physician. This Is Your Medications List acetaminophen-oxycodo ne (acetaminophen-oxycod one 325 mg-5 mg Tab) Discharge Vitals Temperature (Axillary) 36.8 ?C Heart Rate (Monitored) 79 Respiratory Rate 16 Blood Pressure 99/64 Height 157 cm Weight 72 kg BMI 29.21 What to do next Instructions From Your Doctor Event Name Event Result Discharge Activity Activity as tolerated Discharge Restrictions No driving for 24 hrs Discharge Diet(s) Regular Call Your Doctor For Persistent or heavy bleeding, Temperature above 101.5 degrees, Redness, swelling, or pus at operative site, Severe pain at the operative site, Persistent vomiting Wound Care Keep incision dry Pending Diagnostic Test Results None Discharge Instructions Discharge Instructions New Follow Up Appointments after Discharge Follow Up with Jair Thakkar When: Within 2 weeks Comments: Call for any problems. Where: [address] [place] [address]- Business (1) Medications What How Much When Why Instructions Next Dose New acetaminophen-oxycodo ne (acetaminophen-oxycod one 325 mg-5 mg Tab) 1 Tablets By Mouth Every 6 hours as needed for for pain S/P laparoscopy with lysis of adhesions Duration: 2 Days Pickup at [facility]/pharmacy #[id number] as needed for pain; can be taken at 3pm Pharmacy Information [facility]/pharmacy #[id number]: [address] [place] [id number] [phone] Test Results CBC BMP WBC: 11.6 E9/L High (06/20/23 07:05:00) Glucose Lvl: 122 mg/dL (06/19/23 11:27:00) RBC: 3.1 E12/L Low (06/20/23 07:05:00) BUN: 10 mg/dL (06/19/23 11:27:00) HGB: 9.4 gm/dL Low (06/20/23 07:05:00) Creatinine: 0.5 mg/dL (06/19/23 11::00) Hct: 27 % Low (06/20/23 07:05:00) BUN/Creat Ratio: 20 (06/19/23 11:27:00) MCV: 87.7 fL (06/20/23 07:05:00) Sodium Lvl: 138 mmol/L (06/19/23 11:27:00) MCH: 30.5 pg (06/20/23 07:05:00) Potassium Lvl: 3.7 mmol/L (06/19/23 11:27:00) MCHC: 34.7 gm/dL (06/20/23 07:05:00) Chloride: 107 mmol/L (06/19/23 11:27:00) RDW: 14.4 % High (06/20/23 07:05:00) CO2: 23 mmol/L (06/19/23 11:27:00) Platelet: 209 E9/L (06/20/23 07:05:00) AGAP: 12 mEq/L (06/19/23 11:27:00) MPV: 7.4 fL (06/20/23 07:05:00) Calcium Lvl: 8.9 mg/dL (06/19/23 11:27:00) Allergies No Known Allergies No Known Medication Allergies Problems Ongoing - Any problem that you are currently receiving treatment for. Abscess of vulva BMI 30.0-30.9,adult Education Materials Ruptured Ectopic An ectopic happens when a fertilized egg attaches (implants) outside the uterus, usually in one of the fallopian tubes. This is where an egg travels from an ovary to get to the uterus. An ectopic cannot develop into a healthy baby. When a fertilized egg implants on tissue outside the uterus and begins to grow, it may cause the tissue to tear or burst. This is known as a ruptured ectopic . The tear or burst causes internal bleeding. This may cause intense pain in the abdomen. A ruptured ectopic can affect the ability to have children (fertility), depending on damage it causes to the reproductive organs. A ruptured ectopic is a medical emergency. If not treated right away, it can lead to blood loss or shock, and it can be life-threatening. What are the causes? An ectopic ruptures because it is growing in a spot that is not meant to expand and support the growth of a . What increases the risk? You are more likely to have a ruptured ectopic if: ? You have an ectopic , but you do not have any symptoms and the is not found early enough to treat it before it ruptures. ? You have nonsurgical treatment of an ectopic . ? You choose not to have any treatment for an ectopic . What are the signs or symptoms? Symptoms of a ruptured ectopic and internal bleeding may include: ? Sudden, severe pain in the abdomen. ? Feeling dizzy, weak, or light-h (more content not included)... Normal [facility] Inpatient Clinical Summaryon 06-20-2023 Inpatient Clinical Summary [place] [address] Clinical Summary Person Information: Name: CURRY FERRARA Age: 27 Years : 1995 Sex: Female PCP: SELINA GARCIA Marital Status: Race: White Ethnicity: Non- or Language: Kosovan Visit Id: Visit Reason: Nausea; Weakness or fatigue; Dizziness; Abdominal pain - ; STOMACH PAIN, COLD FEET AND HANDS, DIZZINESS, 8 WEEKS Speciality: Acuity: Enc Type: Emergency Med Service: Medical Arrival: 06/19/2023 10:58:06 Discharge: Dispo Type: Address: [address] [facility] [id number] Provider Notes: Diagnosis: Anemia due to acute blood loss; Ectopic ; Hx of unilateral salpingectomy; Ruptured ectopic ; S/P laparoscopy; S/P laparoscopy with lysis of adhesions; Suprapubic discomfort Problems Active Abscess of vulva BMI 30.0-30.9,adult Smoking Status: Never Smoker Functional Status: Sensory Deficits: History of Falls: Mobility Assistance Prior to Admission: Independent ADLs: Independent Current Level of Assistance for Self-Care/Mobility: Cognitive Status: Oriented x 3 Allergies No Known Medication Allergies No Known Allergies Measurements: Height: 157 cm Weight: 72 kg Blood Pressure: 99 mmHg / 64 mmHg BMI: 29.21 kg/m2 Procedures No Procedures Documented Immunizations No Immunizations Documented This Visit Final Med List: acetaminophen-oxycodo ne (acetaminophen-oxycod one 325 mg-5 mg Tab) 1 Tablets By Mouth every 6 hours as needed for pain for 2 Days. Refills: 0. Care Team Members: Attending Physician: Jair Thakkar MD Consulting Physician: Referring Physician: Follow up: With: Address: When: Jair Thakkar [address] [place], [place] [id number] Business (1) Within 2 weeks Comments: Call for any problems. Patient Education Information: Ruptured Ectopic Normal [facility] Inpatient Patient Summaryon 06-20-2023 Inpatient Patient Summary [address] [address] Patient Discharge Instructions PERSON INFORMATION Name: CURRY FERRARA Date of : 1995 Current Date: 06/20/2023 11:12:06 PHYSICIANS Admitting Physician: Primary Care Physician: SELINA GARCIA PCP Phone Number: Comment: Discharge Diagnosis: Anemia due to acute blood loss; Ectopic ; Hx of unilateral salpingectomy; Ruptured ectopic ; S/P laparoscopy; S/P laparoscopy with lysis of adhesions; Suprapubic discomfort Condition at Discharge: Stable CURRY FERRARA has been given the following list of follow-up instructions, prescriptions, and patient education materials: PATIENT FOLLOW-UP INFORMATION Diet: Regular Discharge Activity: Activity as tolerated Discharge Restrictions: No driving for 24 hrs Wound Care Instructions: Keep incision dry Remove Your Dressing In Days Call Your Doctor For: Persistent or heavy bleeding, Temperature above 101.5 degrees, Redness, swelling, or pus at operative site, Severe pain at the operative site, Persistent vomiting IF UNABLE TO CONTACT YOUR PHYSICIAN AND YOU FEEL IT IS AN EMERGENCY, GO TO THE NEAREST EMERGENCY ROOM OR CALL 911 Home Treatment: Devices/Equipment: Special Services: Additional Instructions: Discharge Instructions-OUTPT Entered On: 06/19/2023 18:40 EDT Performed On: 06/19/2023 18:39 EDT by Jair Thakkar MD Discharge Instructions Discharge Diet(s) : Regular Discharge Activity : Expect mild pain, Expect minimal amount of drainage and/or bleeding, Activity as tolerated Call Your Doctor For : Persistent or heavy bleeding, Temperature above 101.5 degrees, Persistent vomiting Wound Care : Keep incision dry Jair Thakkar MD - 06/19/2023 18:39 EDT Primary Care Physician to provide the following pending test results: None Follow up: With: Address: When: Jair Thakkar [address] [place] [address] [address], [facility] [address], [place] [address] Business (1) Within 2 weeks Comments: Call for any problems. In the event that this physician does not participate in your insurance network, please consult with your insurance company to find a nearby participating provider. Comment: JOSIAS Constantino MARIAH G, have received the attached patient education materials/instruction s and have verbalized understanding: Patient Signature Date Clinican/Nurse Signature Date HERE ARE THE MEDICATION CHANGES THAT OCCURRED DURING YOUR HOSPITAL STAY New Medications [id number], [address] [place] [id number], [phone] acetaminophen-oxycodo ne (acetaminophen-oxycod one 325 mg-5 mg Tab) 1 Tablets By Mouth every 6 hours as needed for pain for 2 Days. Refills: 0. Last Dose: ____Next Dose: ____ Comment: MEDICATION LIST PROVIDED FOR YOU IS A LIST OF YOUR CURRENT MEDICATIONS. PLEASE CARRY THIS WITH YOU AT ALL TIMES. acetaminophen-oxycodo ne (acetaminophen-oxycod one 325 mg-5 mg Tab) 1 Tablets By Mouth every 6 hours as needed for pain for 2 Days. Refills: 0. Pharmacy Information: Comment: PATIENT EDUCATION INFORMATION Instructions: Ruptured Ectopic An ectopic happens when a fertilized egg attaches (implants) outside the uterus, usually in one of the fallopian tubes. This is where an egg travels from an ovary to get to the uterus. An ectopic cannot develop into a healthy baby. When a fertilized egg implants on tissue outside the uterus and begins to grow, it may cause the tissue to tear or burst. This is known as a ruptured ectopic . The tear or burst causes internal bleeding. This may cause intense pain in the abdomen. A ruptured ectopic can affect the ability to have children (fertility), depending on damage it causes to the reproductive organs. A ruptured ectopic is a medical emergency. If not treated right away, it can lead to blood loss or shock, and it can be life-threatening. What are the causes? An ectopic ruptures because it is growing in a spot that is not meant to expand and support the growth of a . What increases the risk? You are more likely to have a ruptured ectopic if: ? You have an ectopic , but you do not have any symptoms and the is not found early enough to treat it before it ruptures. ? You have nonsurgical treatment of an ectopic . ? You choose not to have any treatment for an ectopic . What are the signs or symptoms? Symptoms of a ruptured ectopic and internal bleeding may include: ? Sudden, severe pain in the abdomen. ? Feeling dizzy, weak, or light-headed. ? Fainting. ? Pain in the shoulder or neck area. How is this diagnosed? This condition is diagnosed b (more content not included)... Normal [facility] Monitor Recordon 06-20-2023 Monitor Record [id number]# 1.00TIFF Normal [facility] Monitor Record [id number]# 1.00TIFF Normal [facility] Monitor Record [id number]# 1.00TIFF Normal [facility] Operative Reporton Operative Report SURGERY DATE: 06/19/2023 PREOPERATIVE DIAGNOSIS: Ruptured ectopic POSTOPERATIVE DIAGNOSIS: Ruptured ectopic OPERATION: Diagnostic laparoscopy, management of ectopic , right distal partial salpingectomy, lysis of adhesions of the anterior abdominal wall right pelvis, filmy adhesions to the ovaries and tubes, as well as adhesions on the left to the fallopian tube, evacuation of hemoperitoneum ANESTHESIA: General ANESTHESIOLOGIST: Jose Francisco Kebede Jr., D.O.; Becca Grullon CRNA BRIEF HISTORY: The patient is a 27-year-old 2, para 0, AB 1 white female who presented to the Emergency Room complaining of abdominal pain and concern over potential miscarriage. She was found to have a quantitative hCG of 7000+, and ultrasound revealed no intrauterine and probable ectopic with some fluid in the abdomen. On evaluation she was found to have guarding and plus/minus rebound, and diagnosis of ectopic with probable rupture was carried out. She was made ready for the Operative Suite. OPERATIVE TECHNIQUE: The patient was taken to the Operative Suite, and after general anesthesia was administered the patient was draped and prepped in the usual fashion for abdominal surgery. A sharp knife was used to make a scoring incision underneath the umbilicus which allowed for the Veress needle to be placed into the peritoneal cavity. The peritoneal cavity was insufflated with 2.5 liters of carbon dioxide, and laparoscopic sheath and trocar were introduced into the peritoneal cavity. Secondary and tertiary probes were placed under direct visualization, and evaluation of the pelvis was carried out. Immediately she was found to have hemoperitoneum, and suction beam dyer was used to evacuate an initial 1200 to 1400 cc of blood that was in the pelvis. The left fallopian tube was followed out to its fimbriated end and evaluated carefully as this was suspected on the ultrasound to be the area of the ectopic. On the evaluation, though, the tube appeared completely normal and there was no blood actively bleeding from the tube. The right fallopian tube was then followed out to its fimbriated end and found to have some active red bleeding from the distal fimbriae in approximately the last 2.5 cm of the fallopian tube. Control of this allowed for control of her bleeding, and the right distal fallopian tube was removed using a LigaSure device. A fair amount of lysis of adhesions was carried out to achieve this, and the ovary was adherent into the pelvic cul-de-sac on the right. The fallopian tube was adherent on the right into the pelvic cul-de-sac. The left fallopian tube had some peritubular adhesions to it but not as many, and the left fallopian tube ended in a fine delicate pattern. The right lower quadrant had a fair amount of additional adhesions toward the abdominal wall and pelvis. These were taken down using the LigaSure device, as well as some more midabdominal adhesions taken down using the LigaSure device. The evacuation of the hemoperitoneum was continued to be carried out, and with irrigation and suction I eventually felt that approximately 1800 cc of old blood had been evacuated from the peritoneal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 Comment on above: Performed By: #### 1 [id number] ####[facility] [address] [place] [address] UA with Cult Rflxon 06-19-19 24 Bilirubin Ql (U) Negative Normal Negative [facility] Comment on above: Performed By: #### 4 [id number] ####[facility] [address] [facility] [place] [address] Clarity (U) Clear Normal Clear [facility] Comment on above: Performed By: #### 4 [id number] ####[facility] [address] [facility] [place] [address] Color (U) Yellow Normal Yellow [facility] Comment on above: Result Comment: Micr oscopic readings are only performed on those samples that meet specific criteria set forth by [facility] Laboratory. Performed By: #### 4 [id number] ####[facility] [address] [facility] [place] [address] Glucose Ql (U) Negative Normal Negative [facility] Comment on above: Performed By: #### 4 [id number] ####[facility] [address] [facility] [place] [address] Hemoglobin Auto test strip (U) [Mass/Vol] Negative Normal Negative [facility] Comment on above: Performed By: #### 4 [id number] ####[facility] [address] [facility] [place] [address] Ketones Auto test strip Ql (U) 1+ mg/dL Abnormal Negative [facility] Comment on above: Performed By: #### 4 [id number] ####[facility] [address] [facility] [place] [address] Leukocyte esterase Auto test strip Ql (U) Negative Normal Negative [facility] Comment on above: Performed By: #### 4 [id number] ####[facility] [address] [place] [address] Nitrite Auto test strip Ql (U) Negative Normal Negative [facility] Comment on above: Performed By: #### 4 [id number] ####[facility] [address] [place] [address] pH (U) 5.5 [pH] Invalid Interpretation Code 5.0-9.0 [facility] Comment on above: Performed By: #### 4 [id number] ####[address] [address] Protein Ql (U) Trace Abnormal Negative [facility] Comment on above: Performed By: #### 4 [id number] ####[address] [address] Specific gravity (U) [Rel density] 1.025 Invalid Interpretation Code 1.005-1.030 [facility] Comment on above: Performed By: #### 4 [id number] ####[address] [address] Urobilinogen (U) [Mass/Vol] Negative Normal Negative [facility] Comment on above: Performed By: #### 4 [id number] ####[address] [address] Type of Urine collection method Clean Catch Normal [facility] Comment on above: Performed By: #### 4 [id number] ####[address] [address] US 1st Trimesteron 06-19-2023 US 1st Trimester Exam Date/Time: 06/19/2023 13:52 EDT Reason for Exam: Threatened Miscarriage;Other (please specify) Report IMPRESSION: FINDINGS SUSPICIOUS FOR RUPTURED ECTOPIC IN THE LEFT ADNEXA REGION NEAR THE LEFT OVARY. NO INTRAUTERINE GESTATIONAL SAC VISUALIZED. HETEROGENEOUS ENDOMETRIUM. CASE DISCUSSED DIRECTLY WITH DR. BURK ON 06/19/2023 AT 1405. CLINICAL HISTORY: Threatened Miscarriage. LMP: 04/23/2023 MIRIAN from LMP: 01/28/2024 Gestational Age by LMP: 8 weeks, 1 days COMPARISON: None. COMMENT: Transabdominal and transvaginal images were obtained. The uterus measurements and an estimated volume are: Uterus Length: 11.2 cm Uterus Width: 5.3 cm Uterus Height: 4.9 cm Uterus Volume: 153.2 cm3 Heterogeneous appearance of the endometrium. No intrauterine gestational sac visualized. Ovarian/adnexal: Heterogeneous appearance of the left adnexa region with lesion near the left ovary measuring around 3.1 x 1.4 x 3.6 cm, and other surrounding heterogeneous regions, suspicious for ruptured ectopic. Left ovary itself appears unremarkable with small physiologic follicles. Right ovary and right adnexa region grossly unremarkable. The right ovary measurements and estimated volume are: Right Ovary Length: 3.2 cm Right Ovary Width: 3.3 cm Right Ovary Height: 2.0 cm Right Ovary Volume: 11.0 cm3 The left ovary measurements and estimated volume are: Left Ovary Length: 2.1 cm Left Ovary Width: 2.3 cm Left Ovary Height: 2.1 cm Left Ovary Volume: 5.3 cm3 Small volume pelvic free fluid. Report Ordering Provider: Radu Burk FINAL REPORT Dictated: 06/19/2023 2:08 pm Silvio Truong MD Signed (Electronic Signature): 06/19/2023 2:08 pm Signed by: Silvio Truong MD Transcribed by: MARIA DEL CARMEN Technologist: MIKA Technical Comments LMP : 04/23/23 History 4 Para 2 SAB 1 Normal [facility] US Transvaginalon 06-19-2023 US Transvaginal Exam Date/Time: 06/19/2023 13:52 EDT Reason for Exam: Pain Report Refer to concurrent pelvic ultrasound dictation. Ordering Provider: Radu Burk FINAL REPORT Dictated: 06/19/2023 2:09 pm Silvio Truong MD Signed (Electronic Signature): 06/19/2023 2:09 pm Signed by: Silvio Truong MD Transcribed by: MARIA DEL CARMEN Technologist: MIKA Normal [facility] Urinalysis with Microon 05-25 Bilirubin Ql (U) Negative Normal Negative [facility] Comment on above: Performed By: #### 4 [id number] ####[facility] [address] [place] [address] Clarity (U) Clear Normal Clear [facility] Comment on above: Performed By: #### 4 [id number] ####[facility] [address] [place] [address] Color (U) Light-Yellow Normal Yellow [facility] Comment on above: Result Comment: Micr oscopic readings are only performed on those samples that meet specific criteria set forth by [facility]. Performed By: #### 4 [id number] ####[facility] [address] [place] [address] Glucose Ql (U) Negative Normal Negative [facility] Comment on above: Performed By: #### 4 [id number] ####[address] [address] Hemoglobin Auto test strip (U) [Mass/Vol] Negative Normal Negative [facility] Comment on above: Performed By: #### 4 [id number] ####[address] [address] Ketones Auto test strip Ql (U) 3+ mg/dL Abnormal Negative [facility] Comment on above: Performed By: #### 4 [id number] ####[facility] [address] [place] [address] Leukocyte esterase Auto test strip Ql (U) Negative Normal Negative [facility] Comment on above: Performed By: #### 4 [id number] ####[address] [address] Nitrite Auto test strip Ql (U) Negative Normal Negative [facility] Comment on above: Performed By: #### 4 [id number] ####[facility] [address] [place] [address] pH (U) 6.0 [pH] Invalid Interpretation Code 5.0-9.0 [facility] Comment on above: Performed By: #### 4 [id number] ####[facility] [address] [place] [address] Protein Ql (U) Negative Normal Negative [facility] Comment on above: Performed By: #### 4 [id number] ####[facility] [address] [place] [address] Specific gravity (U) [Rel density] 1.020 Invalid Interpretation Code 1.005-1.030 [facility] Comment on above: Performed By: #### 4 [id number] ####[facility] [address] [place] [address] Urobilinogen (U) [Mass/Vol] Negative Normal Negative [facility] Comment on above: Performed By: #### 4 [id number] ####[facility] [address] [place] [address] Type of Urine collection method Whitman Normal [facility] Comment on above: Performed By: #### 4 [id number] ####[address] [place] [address] eGFRon 06-19-2023 eGFR 131 mL/min/1.73 m2 Normal >=59 [facility] Comment on above: Order Comment: Order added by Discern Expert. Performed By: #### 2 [id number] ####[address] [address] Ambulatory Visit Summaryon 0 04-24-2023 Ambulatory Visit Summary CURRY FERRARA :1995 Visit Date:04/24/2023 Ambulatory Visit Instructions Your Diagnosis Acute effusion of both middle ears Skin pimple BMI 27.0-27.9,adult Your Care Team Attending Physician - Cristian Gross PA-C Primary Care Physician - Omer Mendoza MD This Is Your Medications List fluticasone nasal (Flonase 0.05 mg/inh [place]) Discharge Vitals Temperature (Oral) 36.9 ?C Heart Rate (Peripheral) 68 Blood Pressure 116/76 Height 158 cm Height 62 in Weight 69.5 kg Weight 152.9 lb BMI 27.84 Medications What How Much When Why Instructions New fluticasone nasal (Flonase 0.05 mg/ inh [place]) 1 Sprays Nasal Inhalation 2 times a day Acute effusion of both middle ears Skin pimple BMI 27.0-27.9,adult Duration: 7 Days each nostril Pickup at [facility]/pharmacy #[id number] Pharmacy Information [facility]/pharmacy #[id number]: [address] [place] [phone] Medications and Immunizations Administered Not Given influenza [...] you for choosing us for your care. Amina [facility] Family Medicine Office/Clini c Noteon 04-24-2023 Family [...] with voice recognition software. Occasional wrong-word or ?gsoip-n-qioh? substitutions may have occurred due to the [...] sinus congestion. She has not tried any vkgi-jqg-qggnjnl medications. States also her ears have wax [...] spray(s), Nasa (more content not included)... Normal [facility] Comment on above: Result Comment: [...] weeks. Home care treatment may include: ? Yzty-ueg-pdahkca pain relievers. ? A warm, moist cloth placed over the ear. Severe cases may require a procedure to insert tubes in the ears (tympanostomy tubes) to drain the fluid. Follow these instructions at home: ? Take wgxs-ivs-ldeumou and prescription medicines only as told by [...] provider. Document Revised: 06/06/2021 Document Reviewed: 06/06/2021 [employer] Patient Education ? 2022 [employer] Nutrition BMI for Adults What is [...] be related t (more content not included)... Normal [facility] Auth for Release of Medical Recordson 11-19-2022 Auth for Release of Medical Records [id number]. [id number] Normal [facility] Family Medicine Office/Clini c Noteon 10-22-2022 Family [...] agree with above documented HPI by medical record clerk. Portions of this record may have been created with voice recognition artificial intelligence software, specifically [employer], [employer] and or [employer]. Substitutions may have occurred due to the inherent limitations of voice recognition and artificial intelligence software. Patient is a 27-year-old female [facility], [facility], patient was [...] complete sentences, and follows commands appropriately. Head/Face: Normocephalic/atrauma tic no upper respiratory infection. Lungs: Normal respiratory effort and clear to auscultation throughout, no wheezing, no rales Cardio: regular rate and rhythm, no murmur Pulses: Normal capillary refill Abdomen: soft, nondistended, BS normal and active x4. Denies tenderness with palpation, no guarding, rebound, acute abdomen, suprapubic pressure, left or right CVA tenderness, or lumbar back pain on examination. 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 Status post I&D of [...] and affect Assessment/Plan 27-year-old female presented to [facility], for status post I&D abscess of left vulva, that was done 2 days ago, here [facility], patient had a packing in place, [...] With When Contact Information Omer Mendoza MD, [facility], MED Additional Instructions: Patient Education BMI for Adults Skin Abscess, Ukzx-xe-Mejl Problem List/Past Medical History Ongoing Abscess of [...] Immunizations Vaccine Date Status Comments SARS-CoV-2 mRNA (tocourtneynameran 5y-11y) vac - Not Given Postpone due to refusal Normal [facility] Comment on above: Result Comment: Elec tronically Signed By: MERCEDES LAYNE, ESTRELLA\.br\Date and Time Signed: 10/22/22 09:40 EDT Patient Educationon 10-23-19 23 Patient Education Infectious Disease Skin Abscess A [...] these instructions at home: Medicines ? 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 ? Check your abscess every day for signs that the infection is getting worse. Check for: ? More redness, swelling, or pain. ? More fluid or blood. ? Warmth. ? More pus or a bad smell. General instructions ? To avoid spreading the infection: ? Do not share personal care items, towels, or hot tubs with others. ? Avoid making grja-jd-ywdg contact with other people. ? Keep all [...] provider. Document Revised: 11/18/2021 Document Reviewed: 11/18/2021 [employer] Patient Education ? 2022 [employer] Nutrition BMI for Adults What is [...] numbers. This can be done either in [place] ([place] or metric measurements. Note that charts and online BMI calculators are available to help you find your BMI quickly and easily without having to do these calculations yourself. To calculate your BMI in [place] ([place] measurements: 1. Measure your weight in [...] who is (more content not included)... Normal [facility] Family Medicine Office/Clini c Noteon 10-20-2022 Family [...] with voice recognition software. Occasional wrong-word or ?ammlp-b-jybm? substitutions may have occurred due to the inherent limitations of voice recognition software. 27 yo female presents to convenient care today with chief complaint of vaginal [...] vulva. Procedure was completed by myself with DYNAA Fisher, at the bedside. Wound culture was [...] With When Contact Information Omer Mendoza MD, [facility], [facility] Additional Instructions: Patient Education BMI for Adults Incision and Drainage, Care After Skin Abscess, Tawt-cm-Budj Problem List/Past Medical History Ongoing No chronic [...] Immunizations Vaccine Date Status Comments SARS-CoV-2 mRNA (tocourtneynameran 5y-11y) vac - Not Given Po (more content not included)... Normal [facility] Comment on above: Result Comment: Elec tronically Signed By: Renato LAYNE, Cristian Stanton.br\Date and Time Signed: 10/20/22 11:48 EDT No Panel InformationOrdered By: Jami Buck on 10-20-2022 GS 3+ White Blood Cells Occasional Gram Negative [facility] Patient Educationon 10-21-19 Patient Education Infectious [...] these instructions at home: Medicines ? 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 ? Change your dressing and packing as [...] 11/21/2021 E (more content not included)... Normal [facility] Patient Letter FTon 2022 Patient Letter [facility] [address] [facility] [place] [id number] October 20, 2022 CURRY FERRARA [address] [place] [phone] : 1995 Please excuse CURRY FERRARA from work . Date and/or Time of Absence: From: 10/20/2022 To: 10/21/2022 May return to work on: 10/21/2022 Restrictions: None Comments: Please excuse due to an acute illness. Provider Signature: Cristian Gross PA-C Physician Ginseng Farmer [facility] [address] [facility] [place] [address] [facility] Family Medicine Office/Clini c Noteon 10-18-2022 Family Medicine Office/Clinic Note Chief Complaint AIR AND WATER TESTER vaginal lump HPI Staff Pt 27 yo female presents with vaginal lump Symptom onset: Thursday Location- left side Pain/Itchy- painful Drainage- no Characteristics- swollen Treatments attempted: dermoplast History of Present Illness I have reviewed and verified the staff HPI to be accurate for this encounter. Portions of this record have been created with voice recognition software. Occasional wrong-word or ?fouds-x-oixw? substitutions may have occurred due to the [...] Recently moved back to the area from [place] does not currently have a primary care provider or welding robot operator. Patient states she tried using mfaq-mpr-pqcffej Dermoplast with minimal relief. Has otherwise been [...] 75.2, kg, 10/18/22 11:02:00 EDT, Weight Dosing sulfamethoxazole-trim ethoprim, 1 tab(s), Oral, BID for 7 day(s), [...] 75.2, kg, 10/18/22 11:02:00 EDT, Weight Dosing sulfamethoxazole-trim ethoprim, 1 tab(s), Oral, BID for 7 day(s), 14 tab(s), Refill(s) 0, [id number], 158, cm, 10/18/22 11:02:00 EDT, Height/Length Dosing, 75.2, kg, 10/18/22 11:02:00 EDT, Weight Dosing Follow-up With When Contact Information Omer Mendoza MD, [facility] Additional Instructions: Patient Education BMI for Adults Skin Abscess, Ssbo-qc-Tjqs Problem List/Past Medical History Ongoing No chronic problems Historical No qualifying data Medications Bactrim D.S. 800 mg-160 mg Tab, 1 tab(s), Oral, BID Keflex 500 mg Cap, 500 mg= 1 cap(s), Oral, q8hr Allergies No Known Allergies No Known Medication Allergies Social History Tob (more content not included)... Normal [facility] Comment on above: Result Comment: [...] these instructions at home: Medicines ? 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 ? Check your abscess every day for signs that the infection is getting worse. Check for: ? More redness, swelling, or pain. ? More fluid or blood. ? Warmth. ? More pus or a bad smell. General instructions ? To avoid spreading the infection: ? Do not share personal care items, towels, or hot tubs with others. ? Avoid making vbns-uv-airn contact with other people. ? Keep all [...] provider. Document Revised: 11/18/2021 Document Reviewed: 11/18/2021 [employer] Patient Education ? 2022 [employer] Nutrition BMI for Adults What is [...] numbers. This can be done either in [place] or metric measurements. Note that charts and online BMI calculators are available to help you find your BMI quickly and easily without having to do these calculations yourself. To calculate your BMI in [place] ([place] measurements: 1. Measure your weight in [...] who is (more content not included)... Normal [facility] Vital Signs Date Time Vital Sign Value Performing Clinician Facility 04-24-2023 09:15-0500 Blood Pressure Location Cristian Gross [facility] 04-24-2023 09:15-0500 Body temperature 98.42 [degF] Cristian Gross [facility] 04-24-2023 09:15-0500 Diastolic blood pressure 76 mm[Hg] Cristian Gross [facility] 04-24-2023 09:15-0500 Heart rate 68 /min Cristian Gross [facility] 04-24-2023 09:15-0500 SaO2% (BldA) [Mass fraction] 99 % Cristian Gross [facility] 04-24-2023 09:15-0500 Systolic blood pressure 116 mm[Hg] Cristian rGoss [facility] 10-22-2022 09:02-0400 Blood Pressure Location ESTRELLA MERCEDES [facility] 10-22-2022 09:02-0400 Body temperature 98.06 [degF] [facility] 10-22-2022 09:02-0400 Diastolic blood pressure 68 mm[Hg] [facility] 10-22-2022 09:02-0400 Heart rate 95 /[facility] 10-22-2022 09:02-0400 SaO2% (BldA) [Mass fraction] 99 % [place] [facility] 10-22-2022 09:02-0400 Systolic blood pressure 106 mm[Hg] [place] [facility] 10-20-2022 09:25-0400 Body temperature 98.6 [degF] Cristian Gross [facility] 10-20-2022 09:25-0400 Diastolic blood pressure 72 mm[Hg] Cristian Gross [facility] 10-20-2022 09:25-0400 Heart rate 100 /min Cristian Gross [facility] 10-20-2022 09:25-0400 SaO2% (BldA) [Mass fraction] 98 % Cristian Sepulvedaey [facility] 10-20-2022 09:25-0400 Systolic blood pressure 102 mm[Hg] Cristian Gonzalezpsey [facility] 10-18-2022 10:58-0400 Blood Pressure Location Cristian Gonzalezpsey [facility] 10-18-2022 10:58-0400 Body temperature 98.24 [degF] Cristian Gonzalezpsey [facility] 10-18-2022 10:58-0400 Diastolic blood pressure 82 mm[Hg] Cristian Gonzalezpsey [facility] 10-18-2022 10:58-0400 Heart rate 93 /min Cristian Renato [facility] 10-18-2022 10:58-0400 SaO2% (BldA) [Mass fraction] 99 % Cristian Gonzalezpsey [facility] 10-18-2022 10:58-0400 Systolic blood pressure 124 mm[Hg] Cristian Gonzalezpsey [facility] Encounters Encounter Date Encounter Type Care Provider Facility Start: 06-19-2023 End: 06-20-2023 ambulatory Jair Thakkar Facility:[facility] Start: 04-24-2023 End: 04-25-2023 ambulatory Cristian Gross Facility:[facility] Start: 04-24-2023 End: 04-24-2023 Patient encounter procedure Cristian Gross [facility] Start: 10-22-2022 End: 10-23-2022 ambulatory ESTRELLA LONG Facility:[facility] Start: 10-22-2022 End: 10-22-2022 Patient encounter procedure ESTRELLA LONG [facility] Start: 10-20-2022 End: 10-21-2022 ambulatory Cristian Gross Facility:[facility] [facility] Start: 10-20-2022 End: 10-20-2022 Lab Drop off Cristina Gross [facility] Start: 10-20-2022 End: 10-20-2022 Patient encounter procedure Cristian Gross [facility] Start: 10-18-2022 End: 10-19-2022 ambulatory Cristian Gross Facility:[facility] Start: 10-18-2022 End: 10-18-2022 Patient encounter procedure Cristian Gross [facility] Start: 09-01-2022 End: 09-02-2022 ambulatory MD Omer Mendoza Facility:[facility] Start: 09-01-2022 End: 09-01-2022 Patient encounter procedure Omer Mendoza [facility] Start: 08-20-2022 ambulatory Cristian Gross Facility: [facility] Immunizations Immunization Date Immunization Notes Care Provider Nicolas eubanks NEGATED: Highlighted row has not occurred!04-24-2023 influenza virus vaccine, unspecified formulation Cristian Gross [facility] NEGATED: Highlighted row has not occurred!04-24-2023 SARS-CoV-2 mRNA (tozinameran 5y-11y) vaccine Cristian Gross [facility] NEGATED: Highlighted row has not occurred!10-18-2022 SARS-CoV-2 mRNA (tozinameran 5y-11y) vaccine Cristian Gross [facility] Payers Date Payer Category Payer Unknown [id number] 1995 Unknown [id number] 2.16.8 [id number] 1995 Unknown [id number] 2.16.8 [id number] 1995 Unknown [id number] 2.16.8 [id number] 1995 Unknown [id number] 2.16.8 [id number] 1995 Unknown [id number] 2.16.8 [id number] 1995 Unknown [id number] 2.16.8 [id number] 1995 Unknown [id number] 2.16.8 [id number] Social History Date Type Detail Facility Tobacco smoking status No Smokin g Status Entered [facility] Sex Assigned At Female [facility] Start: 10-18-2022 End: 04-24-2023 Tobacco smoking status Never smoked tobacco (finding) [facility] Tobacco smoking status Never [facility] Functional Status Date Assessment Result Facility 04-24-2023 Functional Status N/A [facility] 10-22-2022 Functional Status N/A [facility] 10-20-2022 Functional Status N/A [facility] 10-18-2022 Functional Status N/A [facility] Discharge summary note 06-20-2023 Note Date & Type Note Facility 06-20-2023 Note Admission and Discha rge Information Admitting Diagnoses: Discharge Diagnoses Abdominal pain - , 06/19/2023 Anemia due to acute blood loss, 06/19/2023 Dizziness, 06/19/2023 Ectopic , Ruptured ectopic Hx of unilateral salpingectomy, 06/19/2023 Nausea, 06/19/2023 S/P laparoscopy, S/P laparoscopy with lysis of adhesions Suprapubic discomfort, 06/19/2023 Weakness or fatigue, 06/19/2023 Hospital Course Significant Findings Right fallopian tube ectopic , 1800mL Hemoperitoneum, pelvic adhesion Procedures and Treatment Provided Diagnostic laparoscopy, management of ectopic , right distal partial salpingectomy, lysis of adhesions of the anterior abdominal wall right pelvis, filmy adhesions to the ovaries and tubes, as well as adhesions on the left to the fallopian tube, evacuation of hemoperitoneum The patient was a 27-year-old white female who is approximately 8 weeks gestational age presented to the Emergency Room complaining of worsening abdominal pain associated with syncopal symptoms. She is a patient of Dr. Dodson and has not been seen yet for this current . Quantitative B-HCG was found to be 7127 with no intrauterine visualized on ultrasound. On the left side there was suspicion for ectopic with a small amount of fluid in the pelvis. Patient's abdominal pain worsened during ED observation and considering findings on ultrasound, ectopic is highly suspected. Patient underwent Diagnostic laparoscopy with findings listed above. Right distal partial salpingectomy, evacuation of 1800mL hemoperitoneum and lysis of adhesion was performed. Repeat Hemoglobin post-operatively revealed anemic level of 7.8gm/dL, patient then recived 2 Units of pRBCs and this morning her Hemoglobin increased to 9.4gm/dL. Patient admits to abdominal tenderness. Denies any chest pain, shortness of breath, dizziness, lightheadedness, nausea, vomiting, fevers/chills. Patient tolerating regular diet and voiding spontaneously. Admits to scant vaginal bleeding. Physical Exam Vitals & Measurements T: 36.8 ?C(Axillary) TMIN: 36.6 ?C(Oral) TMAX: 37.0 ?C(Oral) HR: 79(Monitored) RR: 16 BP: 99/64 SpO2: 99% HT: 157 cm WT: 72 kg Alert and Oriented x3 CV RRR Lungs CTAB Abd Soft, +bowel sounds, appropriately tender. Laparoscopic skin incisions covered by steri-strips, clean, dry, and intact without erythema or drainage Ext No edema, no calf tenderness bilaterally. Homann's negative Tests Performed Pathology Tissue Exam -- Results Pending -- UA with Cult Rflx -- Results Pending -- Please visit your patient portal for your results or contact your primary care physician. Discharge Plan Discharge Diet Discharge Diet(s): Regular (06/19/23 18:39:00) Discharge Medication List Prescriptions acetaminophen-oxycodone 325 mg-5 mg Tab, 1 tab(s), Oral, q6hr, PRN Home No active home medications Follow-up With When Contact Information Jair Thakkar Within 2 weeks [address] [place] [address]- Business (1) Additional Instructions: Call for any problems. [facility] Comment on above: Result Comment: Elec tronically Signed By: Katherin French DO\.br\Date and Time Signed: 06/20/23 11:10 EDT History and physical note 06-20-2023 Note Date & Type Note Facility 06-20-2023 Note HOSPITAL REGULATIONS : All Positive and Important Negative Findings Shall Be Recorded DATE ADMITTED: 06/19/2023 ADMITTING DIAGNOSIS: Acute abdomen, probable left ectopic . HISTORY OF PRESENT ILLNESS: The patient is a 27-year-old 2, para 0, AB 1 white female who presented to the Emergency Room complaining of abdominal pain and concern over potential miscarriage. She is a patient of Dr. Dodson who had placed her on progesterone. Her quantitative hCG was found to be 7127. She underwent ultrasound which revealed no intrauterine and no evidence of within the uterine canal. On the left side there was suspicion for ectopic with a small amount of fluid in the pelvis, and the patient was having progressive pain with diagnosis of ectopic being entertained. PAST MEDICAL HISTORY: Allergies: No known allergies. Medications: No medications except for vitamins. Illnesses: None. Surgeries: None. FAMILY HISTORY: Noncontributory. SOCIAL HISTORY: Negative for cigarettes. Negative for alcohol. PHYSICAL EXAMINATION: GENERAL: Physical exam reveals a well-developed, well-nourished white female in mild distress. VITAL SIGNS: Afebrile, pulse 93, respirations 18, blood pressure 124/82. HEAD AND E.E.N.T.: Normocephalic. Extraocular muscles intact. The pupils equal and responsive to light and accommodation. Nose and throat clear. NECK: Without mass, without thyromegaly. LUNGS: Clear to auscultation and percussion. HEART: Regular rate and rhythm. BREASTS: Nonpathologic. ABDOMEN: With tenderness, some voluntary guarding and possible rebound on the left, negative on the right, without organomegaly. EXTREMITIES: Negative for clubbing, cyanosis, or edema. IMPRESSION: Probable ectopic , no visualization of in the uterus with a 7000+ quantitative hCG and an ultrasound suspicious for a left ectopic in a patient with abdomen that is significant. We will plan on moving toward surgical evaluation and management. We discussed with her the risks involved including bleeding, infection, injury to internal organs, probable need for management of the ectopic with possible risk for salpingectomy versus oophorectomy. The patient understands this, appropriately signed consents, and made ready for the Operative Suite. Jair Thakkar M.D. ca Dictated: 06/19/2023 [id number] Transcribed: 06/19/2023 [facility] Comment on above: Result Comment: Elec tronically Signed By: Bijan CRISOSTOMO, Jair Ferrara\.br\Date and Time Signed: 06/20/23 00:26 EDT Hospital Discharge instructions 04-24-2023 Note Date & [...] numbers. This can be done either in [place] ([place] or metric measurements. Note that charts and online BMI calculators are available to help you find your BMI quickly and easily without having to do these calculations yourself. To calculate your BMI in [place] ([place] measurements: 1.Measure your weight in pounds [...] Centers for Disease Control and Prevention: www.cdc.gov [place] Heart Association: www.heart.org National Heart, Lung, and Blood [place]: www.nhlbi.nih.gov Summary Body mass index (BMI) is a number that is calculated from a person's weight and height. BMI may help estimate how much of a person's weight is composed of fat. BMI can help identify those who may be at higher risk for certain medical problems. BMI can be measured using Kosovan measurements or metric measurements. BMI charts are used to identify whether you are underweight, normal weight, overweight, or obese. This information is not intended to replace advice given to you by your health care provider. Make sure you discuss any questions you have with your health care provider. Document Revised: 11/02/2019 Document Reviewed: 09/09/2019 [employer] Patient Education 2022 [employer]. 04/24/2023 09:31:49 Otitis Media With Effusion, Adult [...] few weeks. Home care treatment may include: Jadv-syo-wfgwize pain relievers. A warm, moist cloth placed over the ear. Severe cases may require a procedure to insert tubes in the ears (tympanostomy tubes) to drain the fluid. Follow these instructions at home: Take pthv-ugz-jhkohhc and prescription medicines only as told by [...] provider. Document Revised: 06/06/2021 Document Reviewed: 06/06/2021 [employer] Patient Education 2022 [employer] Follow Up Care 04/24/2023 08:44:27 With:Omer Mendoza MD, [facility] Address:Unknown When: Unknown [facility] Clinical Note 10-22-2022 Note Date & Type Note Facility 10-22-2022 Note Microbiology PROCEDURE: Wound Culture [R1] SOURCE: Wound BODY SITE: Vulva COLLECTED DATE/TIME: 10/20/2022 10:16 EDT RECEIVED DATE/TIME: 10/20/2022 11:58 EDT START DATE/TIME: 10/20/2022 11:58 EDT FREE TEXT SOURCE: Renato LAYNE, Cristian Fajardo. Renato LAYNE, Cristian Fajardo. FINAL REPORTS Final Report [] Verified Date/Time: 10/22/2022 12:35 EDT 1+ Bacteroides species Presumptive isolated. 1+ Propionibacterium species Presumptive isolated. STAINS Gram Stain Report [] Verified Date/Time: 10/20/2022 16:47 EDT 3+ White Blood Cells Occasional Gram Negative Rods Performing Locations R1: This test was performed at: [facility], [address] [place] [address], [address] , , [facility] Comment on above: Performed By: #### [id number] ####[facility] [id number] [place] [address] Hospital Discharge instructions 10-22-2022 Note Date & [...] numbers. This can be done either in [place] ([place] or metric measurements. Note that charts and online BMI calculators are available to help you find your BMI quickly and easily without having to do these calculations yourself. To calculate your BMI in [place] ([place] measurements: 1.Measure your weight in pounds [...] Centers for Disease Control and Prevention: www.cdc.gov [place] Heart Association: www.heart.org National Heart, Lung, and Blood [place]: www.nhlbi.nih.gov Summary Body mass index (BMI) is a number that is calculated from a person's weight and height. BMI may help estimate how much of a person's weight is composed of fat. BMI can help identify those who may be at higher risk for certain medical problems. BMI can be measured using Kosovan measurements or metric measurements. BMI charts are used to identify whether you are underweight, normal weight, overweight, or obese. This information is not intended to replace advice given to you by your health care provider. Make sure you discuss any questions you have with your health care provider. Document Revised: 11/02/2019 Document Reviewed: 09/09/2019 [employer] Patient Education 2022 [employer] 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 Check your abscess every day for signs that the infection is getting worse. Check for: ?More redness, swelling, or pain. ?More fluid or blood. ?Warmth. ?More pus or a bad smell. General instructions To avoid spreading the infection: ?Do not share personal care items, towels, or hot tubs with others. ?Avoid making ktcz-ps-fkfg contact with other people. Keep all follow-up [...] provider. Document Revised: 11/18/2021 Document Reviewed: 11/18/2021 [employer] Patient Education 2022 [employer] [facility] Up [facility] 10/22/2022 08:56:37 With:Omer Mendoza MD, [facility] Address:Unknown When: Unknown [facility] Hospital Discharge instructions 10-20-2022 Note [...] numbers. This can be done either in [place] ([place] or metric measurements. Note that charts and online BMI calculators are available to help you find your BMI quickly and easily without having to do these calculations yourself. To calculate your BMI in [place] ([place] measurements: 1.Measure your weight in pounds [...] Centers for Disease Control and Prevention: www.cdc.gov [place] Heart Association: www.heart.org National Heart, Lung, and Blood [place]: www.nhlbi.nih.gov Summary Body mass index (BMI) is a number that is calculated from a person's weight and height. BMI may help estimate how much of a person's weight is composed of fat. BMI can help identify those who may be at higher risk for certain medical problems. BMI can be measured using Kosovan measurements or metric measurements. BMI charts are used to identify whether you are underweight, normal weight, overweight, or obese. This information is not intended to replace advice given to you by your health care provider. Make sure you discuss any questions you have with your health care provider. Document Revised: 11/02/2019 Document Reviewed: 09/09/2019 [employer] Patient Education 2022 [employer]. 10/20/2022 11:48:05 Incision and Drainage, Care After [...] Follow these instructions at home: Medicines Take ppqc-csp-wmhhueu and prescription medicines only as told by [...] and water are not available, use hand arch cushion skiving machine operator. Change your dressing and packing as told [...] provider. Document Revised: 11/21/2021 Document Reviewed: 11/21/2021 [employer] Patient Education 2022 [employer]. 10/20/2022 11:48:04 Skin Abscess, Wgar-ms-Pdyw Skin Abscess A skin abscess is an [...] Follow these instructions at home: Medicines Take vvkp-pac-jblqtpz and prescription medicines only as told by [...] cannot use soap and water, use hand arch cushion skiving machine operator. Check your abscess every day for signs that the infection is getting worse. Check for: ?More redness, swelling, or pain. ?More fluid or blood. ?Warmth. ?More pus or a bad smell. General instructions To avoid spreading the infection: ?Do not share personal care items, towels, or hot tubs with others. ?Avoid making jqdx-lr-patm contact with other people. Keep all follow-up [...] provider. Document Revised: 11/18/2021 Document Reviewed: 11/18/2021 [employer] Patient Education 2022 [employer]. Follow Up Care 10/20/2022 09:18:08 With:Omer Mendoza MD, [facility], [facility] Address:Unknown When: Unknown [facility] Hospital Discharge instructions 10-18-2022 Note [...] numbers. This can be done either in [place] ([place] or metric measurements. Note that charts and online BMI calculators are available to help you find your BMI quickly and easily without having to do these calculations yourself. To calculate your BMI in [place] ([place] measurements: 1.Measure your weight in pounds [...] Centers for Disease Control and Prevention: www.cdc.gov [place] Heart Association: www.heart.org National Heart, Lung, and Blood [place]: www.nhlbi.nih.gov Summary Body mass index (BMI) is a number that is calculated from a person's weight and height. BMI may help estimate how much of a person's weight is composed of fat. BMI can help identify those who may be at higher risk for certain medical problems. BMI can be measured using Kosovan measurements or metric measurements. BMI charts are used to identify whether you are underweight, normal weight, overweight, or obese. This information is not intended to replace advice given to you by your health care provider. Make sure you discuss any questions you have with your health care provider. Document Revised: 11/02/2019 Document Reviewed: 09/09/2019 [employer] Patient Education 2022 [employer]. 10/18/2022 11:50:00 Skin Abscess, Fxtw-xr-Oqqf Skin Abscess A skin abscess is an [...] Follow these instructions at home: Medicines Take httz-mpk-wdxcqdy and prescription medicines only as told by [...] cannot use soap and water, use hand arch cushion skiving machine operator. Check your abscess every day for signs that the infection is getting worse. Check for: ?More redness, swelling, or pain. ?More fluid or blood. ?Warmth. ?More pus or a bad smell. General instructions To avoid spreading the infection: ?Do not share personal care items, towels, or hot tubs with others. ?Avoid making jvum-zv-amno contact with other people. Keep all follow-up [...] provider. Document Revised: 11/18/2021 Document Reviewed: 11/18/2021 [employer] Patient Education 2022 [employer]. Follow Up Care 10/18/2022 10:11:54 With:Omer Mendoza MD, [facility] Address:Unknown When: Unknown [facility] Care Evaluation + Plan note Note Date & Type Note Facility Evaluation + Plan note No data available for this section [facility] Hospital Discharge instructions Note Date & Type Note Facility Hospital Discharge instructions No data available for this section [facility] Progress note Note Date & Type Note Facility Progress note No data available for this section [facility] Summary Purpose Family History No Family History Records Found Advance Directives No Advanced Directives Records Found Additional Source Comments Patient Care team informatio n (unrecognized section and content) Personnel Name: Omer Mendoza MD Address: Address: [address] [place] [address] Personnel Name: Omer Mendoza MD Address: Address: [address] [place] [address] Personnel Name: Omer Mendoza MD Address: Address: [address] [place] [address] Personnel Name: Omer Mendoza MD Address: Address: [address] [place] [address] Personnel Name: Omer Mendoza MD Address: Address: [address] [place] [address] Personnel Name: Omer Mendoza MD Address: Address: [address] [place] [address] INFORMATION SOURCE (unrecogn ized section and content) DATE CREATED AUTHOR 06/22/2023 [facility] FOR RECORDS PERTAINING TO PATIENTS WHO [...] BE BASED ON THE PRIMARY CLINICAL RECORDS. [employer] [facility]. provides no warranty or guarantee of the accuracy or completeness of information in this document.
[2023-06-25 12:06] LABS: HCG Quantitative 152 mIU/mL
[2023-07-01 10:31] LABS: HCG Quantitative 22 mIU/mL
[2023-07-08 17:04] LABS: HCG Quantitative 4 mIU/mL
== END 2023-07-24 08:39 | disposition home or self-care (01) ==
LOC: LAB 09:56
PROVIDERS: Visit Provider Obstetrics & Gynecology
DX: O00.80 Other ectopic pregnancy without intrauterine pregnancy (principal)
CPT/HCPCS: 36415; 84702

== ENCOUNTER 2023-08-31 07:26 | Day surgery (SDC) | payer BC, SELFPAY ==
--- OUTSIDE RECORDS SUMMARY | 2023-08-31 07:29 | XMS_ITS | CCD ---
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 Performed By: #### 4 [id number] ####[address] [address] Nitrite Auto test strip Ql (U) Negative Normal Negative [facility] Comment on above: Performed By: #### 4 [id number] ####[address] [address] pH (U) 6.0 [pH] Invalid Interpretation Code 5.0-9.0 [facility] Comment on above: Performed By: #### 4 [id number] ####[address] [address] Protein Ql (U) Negative Normal Negative [facility] Comment on above: Performed By: #### 4 [id number] ####[facility] [address] [place] [address] Specific gravity (U) [Rel density] 1.020 Invalid Interpretation Code 1.005-1.030 [facility] Comment on above: Performed By: #### 4 [id number] ####[facility] [address] [place] [address] Urobilinogen (U) [Mass/Vol] Negative Normal Negative [facility] Comment on above: Performed By: #### 4 [id number] ####[facility] [address] [place] [address] Type of Urine collection method Whitman Normal [facility] Comment on above: Performed By: #### 4 [id number] ####[id number] [place] [address] eGFRon 06-19-2023 eGFR 131 mL/min/1.73 m2 Normal >=59 [facility] Comment on above: Order Comment: Order added by Discern Expert. Performed By: #### 2 [id number] ####[address] [address] Ambulatory Visit Summaryon 0 04-24-2023 Ambulatory Visit Summary CURRY FERRARA :1995 Visit Date:04/24/2023 Ambulatory Visit Instructions Your Diagnosis Acute effusion of both middle ears Skin pimple BMI 27.0-27.9,adult Your Care Team Attending Physician - Renato LAYNE, Cristian Wilson Primary Care Physician - Omer Mendoza MD This Is Your Medications List fluticasone nasal (Flonase 0.05 mg/inh Baldwin) Discharge Vitals Temperature (Oral) 36.9 ?C Heart Rate (Peripheral) 68 Blood Pressure 116/76 Height 158 cm Height 62 in Weight 69.5 kg Weight 152.9 lb BMI 27.84 Medications What How Much When Why Instructions New fluticasone nasal (Flonase 0.05 mg/ inh Baldwin) 1 Sprays Nasal Inhalation 2 times a day Acute effusion of both middle ears Skin pimple BMI 27.0-27.9,adult Duration: 7 Days each nostril Pickup at [facility]/pharmacy #[id number] Pharmacy Information [facility]/pharmacy #[id number]: [address] [place] [id number] [phone] Medications and Immunizations Administered Not Given influenza [...] for choosing us for your care. Amina [facility] Family Medicine Office/Clini c Noteon 04-24-2023 [...] with voice recognition software. Occasional wrong-word or ?uiftz-f-jzrr? substitutions may have occurred due to the [...] sinus congestion. She has not tried any ssqu-xtr-yilcobh medications. States also her ears have wax [...] spray(s), Nasa (more content not included)... Normal [facility] Comment on above: Result Comment: Elec [...] weeks. Home care treatment may include: ? Wkcz-yga-zhvfrxq pain relievers. ? A warm, moist cloth placed over the ear. Severe cases may require a procedure to insert tubes in the ears (tympanostomy tubes) to drain the fluid. Follow these instructions at home: ? Take inik-bqo-sengjsu and prescription medicines only as told by [...] provider. Document Revised: 06/06/2021 Document Reviewed: 06/06/2021 Apps[employer] Patient Education ? 2022 [employer]. Nutrition BMI for Adults What is [...] related t (more content not included)... Normal [facility] Auth for Release of Medical Recordson 11-19-2022 Auth for Release of Medical Records [id number]. 00CD:[id number] Normal [facility] Office/Clini c Noteon 10-22-2022 [...] agree with above documented HPI by medical illustrator. Portions of this record may have been created with voice recognition artificial intelligence software, specifically [employer], [employer] and or [employer]. Substitutions may have occurred due to the inherent limitations of voice recognition and artificial intelligence software. Patient is a 27-year-old female presents to [facility], for follow-up appointment, patient was seen on October 20, 2022, 2 days ago here in [facility], for an I&D abscess of a [...] pain on examination. 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 Status post I&D of [...] affect Assessment/Plan 27-year-old female presented to [facility], for status post I&D abscess of left vulva, that was done 2 days ago, here in the [facility] care, patient had a packing in place, [...] With When Contact Information Omer Mendoza MD, [facility], [facility] Additional Instructions: Patient Education BMI for Adults Skin Abscess, Pkjh-gf-Iyfo Problem List/Past Medical History Ongoing Abscess of [...] Not Given Postpone due to refusal Normal [facility] Comment on above: Result Comment: Elec [...] these instructions at home: Medicines ? Take yxkr-wwd-tlmjibk and prescription medicines only as told by [...] cannot use soap and water, use hand wallpaper hanger. ? Check your abscess every day for signs that the infection is getting worse. Check for: ? More redness, swelling, or pain. ? More fluid or blood. ? Warmth. ? More pus or a bad smell. General instructions ? To avoid spreading the infection: ? Do not share personal care items, towels, or hot tubs with others. ? Avoid making vwwy-wq-yisj contact with other people. ? Keep all [...] provider. Document Revised: 11/18/2021 Document Reviewed: 11/18/2021 [employer] Patient Education ? 2022 [employer]. Nutrition BMI for Adults What is [...] numbers. This can be done either in Marshallese (U.S[place] or metric measurements. Note that charts and online BMI calculators are available to help you find your BMI quickly and easily without having to do these calculations yourself. To calculate your BMI in Marshallese (U.S.) measurements: 1. Measure your weight in [...] who is (more content not included)... Normal [facility] Office/Clini c Noteon 10-20-2022 [...] with voice recognition software. Occasional wrong-word or ?hiyzf-i-wkcb? substitutions may have occurred due to the inherent limitations of voice recognition software. 27 yo female presents to [facility] today with chief complaint of vaginal [...] With When Contact Information Omer Mendoza MD, [facility], [facility] Additional Instructions: Patient Education BMI for Adults Incision and Drainage, Care After Skin Abscess, Piti-qk-Dipo Problem List/Past Medical History Ongoing No chronic [...] Given Po (more content not included)... Normal [facility] Comment on above: Result Comment: Elec tronically Signed By: Renato LAYNE, Cristian Stanton.br\Date and Time Signed: 10/20/22 11:48 EDT No Panel InformationOrdered By: Jami Buck on 10-20-2022 GS 3+ White Blood Cells Occasional Gram Negative Rods [facility] Patient Educationon 10-21-19 Patient Education Infectious [...] these instructions at home: Medicines ? Take otic-pbv-lkizcfq and prescription medicines only as told by [...] and water are not available, use hand wallpaper hanger. ? Change your dressing and packing as [...] 11/21/2021 E (more content not included)... Normal [facility] Patient Letter FTon 2022 Patient Letter [facility] [address] [place] [address], [facility] [place] [address] [id number] October 20, 2022 CURRY FERRARA [address] [place] [id number] : 1995 Please excuse CURRY FERRARA from work . Date and/or Time of Absence: From: 10/20/2022 To: 10/21/2022 May return to work on: 10/21/2022 Restrictions: None Comments: Please excuse due to an acute illness. Provider Signature: Cristian Gross PA-C Physician It Portfolio Manager [address] [place] [address] [facility] Family Medicine Office/Clini c Noteon 10-18-2022 Family Medicine Office/Clinic Note Chief Complaint HAND SHOES SEWER vaginal lump HPI Staff Pt 27 yo female presents with vaginal lump Symptom onset: Thursday Location- left side Pain/Itchy- painful Drainage- no Characteristics- swollen Treatments attempted: dermoplast History of Present Illness I have reviewed and verified the staff HPI to be accurate for this encounter. Portions of this record have been created with voice recognition software. Occasional wrong-word or ?hzqcr-l-itdb? 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 Patient states she tried using yuop-lff-imokxpg Dermoplast with minimal relief. Has otherwise been [...] day(s), # 21 cap(s), Refills(s) 0, Pharmacy: [facility]/pharmacy #[id number], 158, cm, 10/18/22 11:02:00 EDT, Height/Length [...] day(s), # 21 cap(s), Refills(s) 0, Pharmacy: [facility]/pharmacy #[id number], 158, cm, 10/18/22 11:02:00 EDT, Height/Length Dosing, 75.2, kg, 10/18/22 11:02:00 EDT, Weight Dosing sulfamethoxazole-trim ethoprim, 1 tab(s), Oral, BID for 7 day(s), 14 tab(s), Refill(s) 0, [id number], 158, cm, 10/18/22 11:02:00 EDT, Height/Length Dosing, 75.2, kg, 10/18/22 11:02:00 EDT, Weight Dosing Follow-up With When Contact Information Omer Mendoza MD, [facility], [facility] Additional Instructions: Patient Education BMI for Adults Skin Abscess, Oskk-dt-Rcpt Problem List/Past Medical History Ongoing No chronic problems Historical No qualifying data Medications Bactrim D.S. 800 mg-160 mg Tab, 1 tab(s), Oral, BID Keflex 500 mg Cap, 500 mg= 1 cap(s), Oral, q8hr Allergies No Known Allergies No Known Medication Allergies Social History Tob (more content not included)... Normal [facility] Comment on above: Result Comment: Elec tronically Signed By: Renato LAYNE, Cristian Wilson\.br\Date and Time Signed: 10/18/22 11:50 EDT Patient Educationon 10-19-19 23 Patient Education Infectious Disease Skin Abscess [...] these instructions at home: Medicines ? Take zhca-qan-bgucwbi and prescription medicines only as told by [...] cannot use soap and water, use hand wallpaper hanger. ? Check your abscess every day for signs that the infection is getting worse. Check for: ? More redness, swelling, or pain. ? More fluid or blood. ? Warmth. ? More pus or a bad smell. General instructions ? To avoid spreading the infection: ? Do not share personal care items, towels, or hot tubs with others. ? Avoid making phjg-dy-djbs contact with other people. ? Keep all [...] provider. Document Revised: 11/18/2021 Document Reviewed: 11/18/2021 Apps4Pro Patient Education ? 2022 [employer] Inc. Nutrition BMI for Adults What is [...] numbers. This can be done either in [place]ese (U.S.) or metric measurements. Note that charts and online BMI calculators are available to help you find your BMI quickly and easily without having to do these calculations yourself. To calculate your BMI in [place]ese (U.S.) measurements: 1. Measure your weight in [...] who is (more content not included)... Normal [facility] Vital Signs Date Time Vital Sign Value Performing Clinician Facility 04-24-2023 09:15-0500 Blood Pressure Location Cristian Gross [facility] 04-24-2023 09:15-0500 Body temperature 98.42 [degF] Cristian Gross [facility] 04-24-2023 09:15-0500 Diastolic blood pressure 76 mm[Hg] Cristian Gross [facility] 04-24-2023 09:15-0500 Heart rate 68 /min Cristian Gross [facility] 04-24-2023 09:15-0500 SaO2% (BldA) [Mass fraction] 99 % Cristian Renato [facility] 04-24-2023 09:15-0500 Systolic blood pressure 116 mm[Hg] Cristian Grsos [facility] 10-22-2022 09:02-0400 Blood Pressure Location ESTRELLA LONG [facility] 10-22-2022 09:02-0400 Body temperature 98.06 [degF] BASALT LONG [facility] 10-22-2022 09:02-0400 Diastolic blood pressure 68 mm[Hg] BASALT LONG [facility] 10-22-2022 09:02-0400 Heart rate 95 /min BASALT LONG [facility] 10-22-2022 09:02-0400 SaO2% (BldA) [Mass fraction] 99 % BASALT LONG [facility] 10-22-2022 09:02-0400 Systolic blood pressure 106 mm[Hg] ESTRELLA LONG [facility] 10-20-2022 09:25-0400 Body temperature 98.6 [degF] Cristian Renato [facility] 10-20-2022 09:25-0400 Diastolic blood pressure 72 mm[Hg] Cristian Gross [facility] 10-20-2022 09:25-0400 Heart rate 100 /min Cristian Gross [facility] 10-20-2022 09:25-0400 SaO2% (BldA) [Mass fraction] 98 % Cristianngozi Sepulvedaey [facility] 10-20-2022 09:25-0400 Systolic blood pressure 102 mm[Hg] Cristianngozi Sepulvedaey [facility] 10-18-2022 10:58-0400 Blood Pressure Location Cristian Renato [facility] 10-18-2022 10:58-0400 Body temperature 98.24 [degF] Cristian Gonzalezpsey [facility] 10-18-2022 10:58-0400 Diastolic blood pressure 82 mm[Hg] Cristianngozi Gross [facility] 10-18-2022 10:58-0400 Heart rate 93 /min Cristianngozi Sepulvedaey [facility] 10-18-2022 10:58-0400 SaO2% (BldA) [Mass fraction] 99 % Cristian Renato [facility] 10-18-2022 10:58-0400 Systolic blood pressure 124 mm[Hg] Cristian Renato [facility] Encounters Encounter Date Encounter Type Care Provider Facility Start: 06-19-2023 End: 06-20-2023 ambulatory Jair Thakkar Facility:[facility] Start: 04-24-2023 End: 04-25-2023 ambulatory Cristian Gross Facility:[facility] Start: 04-24-2023 End: 04-24-2023 Patient encounter procedure Cristian Gross [facility] Start: 10-22-2022 End: 10-23-2022 ambulatory ESTRELLA LONG Facility:[facility] Start: 10-22-2022 End: 10-22-2022 Patient encounter procedure ESTRELLA LONG [facility] Start: 10-20-2022 End: 10-21-2022 ambulatory Cristian Gross Facility:[facility] Start: 10-20-2022 End: 10-20-2022 Lab Drop off Cristian Gross [facility] Start: 10-20-2022 End: 10-20-2022 Patient encounter procedure Cristian Gross [facility] Start: 10-18-2022 End: 10-19-2022 ambulatory Cristian Gross Facility:[facility] Start: 10-18-2022 End: 10-18-2022 Patient encounter procedure Cristian Gross [facility] Start: 09-01-2022 End: 09-02-2022 ambulatory MD Omer Mendoza Facility:[facility] Start: 09-01-2022 End: 09-01-2022 Patient encounter procedure Omer Mendoza [facility] Start: 08-20-2022 ambulatory Cristian Gross Facility: [facility] Immunizations Immunization Date Immunization Notes Care Provider Nicolas eubanks NEGATED: Highlighted row has not occurred!04-24-2023 influenza virus vaccine, unspecified formulation Cristian Gross [facility] NEGATED: Highlighted row has not occurred!04-24-2023 SARS-CoV-2 mRNA (tozinameran 5y-11y) vaccine Cristian Gross [facility] NEGATED: Highlighted row has not occurred!08-26-2023 SARS-CoV-2 mRNA (tozinammanny 5y-11y) vaccine Cristian Gross [facility] Payers Date Payer Category Payer Unknown [id number] 1995 Unknown [id number] 2.16.8 [id number] 1995 Unknown [id number] 2.16.8 [id number] 1995 Unknown [id number] 2.16.8 [id number] 1995 Unknown [id number] 2.16.8 [id number] 1995 Unknown [id number] 2.16.8 [id number] 1995 Unknown [id number] 2.16.8 [id number] 1995 Unknown [id number] 2.16.8 [id number] Social History Date Type Detail Facility Tobacco smoking status No Smokin g Status Entered [facility] [place] Sex Assigned At Female [facility] Start: 10-18-2022 End: 04-24-2023 Tobacco smoking status Never smoked tobacco (finding) [facility] Tobacco smoking status Never [facility] Functional Status Date Assessment Result Facility 04-24-2023 Functional Status N/A [facility] 10-22-2022 Functional Status N/A [facility] 10-20-2022 Functional Status N/A [facility] 10-18-2022 Functional Status N/A [facility] Discharge summary note 06-20-2023 Note [...] medications Follow-up With When Contact Information Jair Mcraeten Within [address], [place] [address] [place] [phone] Business (1) Additional Instructions: Call for any problems. [facility] Comment on above: Result Comment: Elec [...] Suite. Jair Thakkar M.D. ca Dictated: 06/19/2023 [id number] Transcribed: 06/19/2023 [facility] Comment on above: Result Comment: Elec [...] numbers. This can be done either in [place]ese (U.S.) or metric measurements. Note that charts and online BMI calculators are available to help you find your BMI quickly and easily without having to do these calculations yourself. To calculate your BMI in [place]ese (U.S.) measurements: 1.Measure your weight in pounds [...] Association: www.heart.org National Heart, Lung, and Blood [place]: www.nhlbi.nih.gov Summary Body mass index (BMI) is a number that is calculated from a person's weight and height. BMI may help estimate how much of a person's weight is composed of fat. BMI can help identify those who may be at higher risk for certain medical problems. BMI can be measured using Marshallese measurements or metric measurements. BMI charts are used to identify whether you are underweight, normal weight, overweight, or obese. This information is not intended to replace advice given to you by your health care provider. Make sure you discuss any questions you have with your health care provider. Document Revised: 11/02/2019 Document Reviewed: 09/09/2019 Apps4Pro Patient Education 2022 [employer]. 04/24/2023 09:31:49 Otitis Media With Effusion, Adult [...] few weeks. Home care treatment may include: Kxmv-ekq-arzmnwr pain relievers. A warm, moist cloth placed over the ear. Severe cases may require a procedure to insert tubes in the ears (tympanostomy tubes) to drain the fluid. Follow these instructions at home: Take icdo-vyc-dtmbohx and prescription medicines only as told by [...] provider. Document Revised: 06/06/2021 Document Reviewed: 06/06/2021 Apps[employer]Pro Patient Education 2022 [employer]. Follow Up Care 04/24/2023 08:44:27 With:Omer Mendoza MD, [facility] Address:Unknown When: Unknown [facility] Clinical Note 10-22-2022 Note [...] Locations R1: This test was performed at: [facility], [address] [place] [address], [phone] , , [facility] Comment on above: Performed By: #### 2 [id number] ####[facility] [address] [place] [address] Hospital Discharge instructions 10-22-2022 Note Date & [...] numbers. This can be done either in [place]ese (U.S.) or metric measurements. Note that charts and online BMI calculators are available to help you find your BMI quickly and easily without having to do these calculations yourself. To calculate your BMI in [place]ese (U.S.) measurements: 1.Measure your weight in pounds [...] Association: www.heart.org National Heart, Lung, and Blood [place]: www.nhlbi.nih.gov Summary Body mass index (BMI) is a number that is calculated from a person's weight and height. BMI may help estimate how much of a person's weight is composed of fat. BMI can help identify those who may be at higher risk for certain medical problems. BMI can be measured using Marshallese measurements or metric measurements. BMI charts are used to identify whether you are underweight, normal weight, overweight, or obese. This information is not intended to replace advice given to you by your health care provider. Make sure you discuss any questions you have with your health care provider. Document Revised: 11/02/2019 Document Reviewed: 09/09/2019 Apps4Pro Patient Education 2022 [employer]. 10/22/2022 09:39:10 Skin Abscess, Zmft-rk-Hlph Skin Abscess A skin abscess is an [...] Follow these instructions at home: Medicines Take oovx-liy-popdzay and prescription medicines only as told by [...] cannot use soap and water, use hand wallpaper hanger. Check your abscess every day for signs that the infection is getting worse. Check for: ?More redness, swelling, or pain. ?More fluid or blood. ?Warmth. ?More pus or a bad smell. General instructions To avoid spreading the infection: ?Do not share personal care items, towels, or hot tubs with others. ?Avoid making gcnp-ib-mdug contact with other people. Keep all follow-up [...] provider. Document Revised: 11/18/2021 Document Reviewed: 11/18/2021 Apps4Pro Patient Education 2022 Interneer Follow Up Care 10/22/2022 08:56:37 With:Omer Mendoza MD, [facility] Address:Unknown When: Unknown [facility] Hospital Discharge instructions 10-20-2022 [...] numbers. This can be done either in [place]ese (U.S.) or metric measurements. Note that charts and online BMI calculators are available to help you find your BMI quickly and easily without having to do these calculations yourself. To calculate your BMI in Marshallese (U.S.) measurements: 1.Measure your weight in pounds [...] Association: www.heart.org National Heart, Lung, and Blood [place]: www.nhlbi.nih.gov Summary Body mass index (BMI) is a number that is calculated from a person's weight and height. BMI may help estimate how much of a person's weight is composed of fat. BMI can help identify those who may be at higher risk for certain medical problems. BMI can be measured using Marshallese measurements or metric measurements. BMI charts are used to identify whether you are underweight, normal weight, overweight, or obese. This information is not intended to replace advice given to you by your health care provider. Make sure you discuss any questions you have with your health care provider. Document Revised: 11/02/2019 Document Reviewed: 09/09/2019 [employer] Patient Education 2022 [employer]. 10/20/2022 11:48:05 Incision and Drainage, Care After [...] Follow these instructions at home: Medicines Take dcnr-mjb-ldiqvxm and prescription medicines only as told by [...] and water are not available, use hand wallpaper hanger. Change your dressing and packing as told [...] provider. Document Revised: 11/21/2021 Document Reviewed: 11/21/2021 [employer] Patient Education 2022 [employer]. 10/20/2022 11:48:04 Skin Abscess, Ftjh-xb-Fhft Skin Abscess A skin abscess is an [...] Follow these instructions at home: Medicines Take rwyf-vin-atuymnt and prescription medicines only as told by [...] cannot use soap and water, use hand wallpaper hanger. Check your abscess every day for signs that the infection is getting worse. Check for: ?More redness, swelling, or pain. ?More fluid or blood. ?Warmth. ?More pus or a bad smell. General instructions To avoid spreading the infection: ?Do not share personal care items, towels, or hot tubs with others. ?Avoid making fujg-er-wblf contact with other people. Keep all follow-up [...] provider. Document Revised: 11/18/2021 Document Reviewed: 11/18/2021 [employer] Patient Education 2022 [employer]. Follow Up Care 10/20/2022 09:18:08 With:Omer Mendoza MD, [facility], [facility] Address:Unknown When: Unknown [facility] Discharge instructions 10-18-2022 [...] numbers. This can be done either in [place] ([place] or metric measurements. Note that charts and online BMI calculators are available to help you find your BMI quickly and easily without having to do these calculations yourself. To calculate your BMI in [place] ([place] measurements: 1.Measure your weight in pounds [...] Association: www.heart.org National Heart, Lung, and Blood [place]: www.nhlbi.nih.gov Summary Body mass index (BMI) is a number that is calculated from a person's weight and height. BMI may help estimate how much of a person's weight is composed of fat. BMI can help identify those who may be at higher risk for certain medical problems. BMI can be measured using Marshallese measurements or metric measurements. BMI charts are used to identify whether you are underweight, normal weight, overweight, or obese. This information is not intended to replace advice given to you by your health care provider. Make sure you discuss any questions you have with your health care provider. Document Revised: 11/02/2019 Document Reviewed: 09/09/2019 [employer] Patient Education 2022 [employer]. 10/18/2022 11:50:00 Skin Abscess, Cawk-pn-Acml Skin Abscess A skin abscess is an [...] Follow these instructions at home: Medicines Take wpjj-zxz-kejqhmi and prescription medicines only as told by [...] cannot use soap and water, use hand wallpaper hanger. Check your abscess every day for signs that the infection is getting worse. Check for: ?More redness, swelling, or pain. ?More fluid or blood. ?Warmth. ?More pus or a bad smell. General instructions To avoid spreading the infection: ?Do not share personal care items, towels, or hot tubs with others. ?Avoid making ctjk-qn-zftp contact with other people. Keep all follow-up [...] provider. Document Revised: 11/18/2021 Document Reviewed: 11/18/2021 [employer] Ident Patient Education 2022 [employer]. Follow Up Care 10/18/2022 10:11:54 With:Omer Mendoza MD, [facility] Address:Unknown When: Unknown [facility] Evaluation + Plan note Note Date & Type Note Facility Evaluation + Plan note No data available for this section [facility] Discharge instructions Note Date & Type Note Facility Hospital Discharge instructions No data available for this section [facility] Progress note Note Date & Type Note Facility Progress note No data available for this section [facility] Summary Purpose Family History No Family History Records Found Advance Directives No Advanced Directives Records Found Additional Source Comments Patient Care team informatio n (unrecognized section and content) Personnel Name: Omer Mendoza MD Address: Address: [address] [place] [address] Personnel Name: Omer Mendoza MD Address: Address: [address] [place] [address] Personnel Name: Omer Mendoza MD Address: Address: [address] [place] [address] Personnel Name: Omer Mendoza MD Address: Address: [address] [place] [address] Personnel Name: Omer Mendoza MD Address: Address: [address] [place] [address] Personnel Name: Omer Mendoza MD Address: Address: [address] [place] [address] INFORMATION SOURCE (unrecogn ized section and content) DATE CREATED AUTHOR 06/22/2023 [facility] FOR RECORDS PERTAINING TO PATIENTS WHO [...] BE BASED ON THE PRIMARY CLINICAL RECORDS. [facility]. provides no warranty or guarantee of the accuracy or completeness of information in this document.
--- NOTE | 2023-08-31 07:39 | FL_ITS ---
[address] [address] Patient Name: CURRY FERRARA MRN: [id number] date: 1995 Sex: F Assigned Patient Location: [place] Current Patient Location: [place] Accession/Order Number: [id number] Exam Date: 08/31/2023 07:45 Report Date: 08/31/2023 10:03 At the request of: JACLYN SHAW Procedure: FL Hysterosal cath placement EXAMINATION: FL hysterosalpingography, FL Hysterosal cath placement HISTORY: Fallopian Tube Disorder COMPARISON: No relevant comparison available. TECHNIQUE: Informed consent was obtained. A sterile vaginal speculum was introduced and, following cleansing of the cervix, a balloon-tipped catheter was inserted into the endometrial cavity. The procedure was then completed in the usual manner with water-soluble contrast. Standard level fluoroscopic mode of operation utilized. FINDINGS: The initial injection demonstrated occlusion of both fallopian tubes. Increased pressure over time resulted in opacification of both fallopian tubes with spillage into the peritoneal cavity. The spillage on the left on image 1 was not related to a tube rupture during real-time fluoroscopy. FALLOPIAN TUBES: Patent fallopian tubes bilaterally. ENDOMETRIAL CAVITY: No scarring, filling defects, or dilatation. OTHER: Negative. FL/FL Hysterosal cath placement IMPRESSION: Initial occlusion of both fallopian tubes with eventual opacification and normal spillage into the peritoneal cavity Electronically authenticated by: DEANN YUEN Date: 08/31/2023 10:03
--- NOTE | 2023-08-31 07:39 | FL_ITS ---
[address] [address] Patient Name: CURRY FERRARA MRN: [id number] date: 1995 Sex: F Assigned Patient Location: [place] Current [place] Location: [place] Accession/Order Number: [id number] Exam Date: 08/31/2023 07:45 Report Date: 08/31/2023 10:03 At the request of: JACLYN SHAW Procedure: FL hysterosalpingography EXAMINATION: FL hysterosalpingography, FL Hysterosal cath placement HISTORY: Fallopian Tube Disorder COMPARISON: No relevant comparison available. TECHNIQUE: Informed consent was obtained. A sterile vaginal speculum was introduced and, following cleansing of the cervix, a balloon-tipped catheter was inserted into the endometrial cavity. The procedure was then completed in the usual manner with water-soluble contrast. Standard level fluoroscopic mode of operation utilized. FINDINGS: The initial injection demonstrated occlusion of both fallopian tubes. Increased pressure over time resulted in opacification of both fallopian tubes with spillage into the peritoneal cavity. The spillage on the left on image 1 was not related to a tube rupture during real-time fluoroscopy. FALLOPIAN TUBES: Patent fallopian tubes bilaterally. ENDOMETRIAL CAVITY: No scarring, filling defects, or dilatation. OTHER: Negative. FL/FL hysterosalpingography IMPRESSION: Initial occlusion of both fallopian tubes with eventual opacification and normal spillage into the peritoneal cavity Electronically authenticated by: DEANN YUEN Date: 08/31/2023 10:03
[2023-08-31 07:58] LABS: HCG Quantitative <1 mIU/mL
--- NOTE | 2023-08-31 15:38 | SUR.PREOP ---
08/26/23 Pt instructed on procedure, date, time, and prep.
--- NOTE | 2023-08-31 15:44 | PC.NURSE ---
0830 Pt denies any c/o vag bleeding/ spotting or abd cramping after procedure.
== END 2023-08-31 08:35 | disposition home or self-care (01) ==
LOC: FL 07:26
PROVIDERS: Radiology Diagnostic Radiology; Visit Provider Obstetrics & Gynecology
DX: N83.9 Noninflammatory disorder of ovary, fallopian tube and broad ligament, unspecified (principal)
CPT/HCPCS: 36415; 58340; 74740; 84702; Q9966

== ENCOUNTER 2023-10-06 14:54 | Outpatient (OUT) | payer BC, SELFPAY ==
--- OUTSIDE RECORDS SUMMARY | 2023-10-06 14:59 | XMS_ITS | CCD ---
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 Negative Normal Negative [facility] Comment on above: Performed By: #### 4 [id number] ####[facility] [address] [place] [address] Type of Urine collection method Whitman Normal [facility] Comment on above: Performed By: #### 4 [id number] ####[address] [place] [address] eGFRon 06-19-2023 eGFR 131 mL/min/1.73 m2 Normal >=59 [facility] Comment on above: Order Comment: Order added by Discern Expert. Performed By: #### 2 [id number] ####[address] [address] Ambulatory Visit Summaryon 0 04-24-2023 Ambulatory Visit Summary CURRY FERRARA :1995 Visit Date:04/24/2023 Ambulatory Visit Instructions Your Diagnosis Acute effusion of both middle ears Skin pimple BMI 27.0-27.9,adult Your Care Team Attending Physician - Renato LAYNE, Cristian Wilson Primary Care Physician - Omer Mendoza MD This Is Your Medications List fluticasone nasal (Flonase 0.05 mg/inh [employer]) Discharge Vitals Temperature (Oral) 36.9 ?C Heart Rate (Peripheral) 68 Blood Pressure 116/76 Height 158 cm Height 62 in Weight 69.5 kg Weight 152.9 lb BMI 27.84 Medications What How Much When Why Instructions New fluticasone nasal (Flonase 0.05 mg/ inh [employer]) 1 Sprays Nasal Inhalation 2 times a day Acute effusion of both middle ears Skin pimple BMI 27.0-27.9,adult Duration: 7 Days each nostril Pickup at [facility]/pharmacy #[id number] Pharmacy Information [facility]/pharmacy #[id number]: [address] [place] [id number] [phone] Medications and Immunizations Administered Not Given influenza [...] for choosing us for your care. Amina [facility] Family Medicine Office/Clini c Noteon 04-24-2023 Family [...] with voice recognition software. Occasional wrong-word or ?eoiki-z-biuc? substitutions may have occurred due to the [...] sinus congestion. She has not tried any waqc-uia-lvbbowk medications. States also her ears have wax [...] spray(s), Nasa (more content not included)... Normal [facility] Comment on above: Result Comment: [...] weeks. Home care treatment may include: ? Fzow-kzk-buxzkwt pain relievers. ? A warm, moist cloth placed over the ear. Severe cases may require a procedure to insert tubes in the ears (tympanostomy tubes) to drain the fluid. Follow these instructions at home: ? Take buxd-znj-zlsnkpg and prescription medicines only as told by [...] provider. Document Revised: 06/06/2021 Document Reviewed: 06/06/2021 [employer] Patient Education ? 2022 [employer] Nutrition BMI for Adults What is [...] related t (more content not included)... Normal [facility] Auth for Release of Medical Recordson 11-19-2022 Auth for Release of Medical Records [id number]. [id number]:127 Normal [facility] Family Medicine Office/Clini c Noteon 10-22-2022 Family [...] agree with above documented HPI by medical dosimetrist. Portions of this record may have been created with voice recognition artificial intelligence software, specifically [employer], [employer] and or [employer]. Substitutions may have occurred due to the inherent limitations of voice recognition and artificial intelligence software. Patient is a 27-year-old female presents to [facility], for follow-up appointment, patient was seen on October 20, 2022, 2 days ago here in [facility] care, for an I&D abscess [...] pain on examination. 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 Status post I&D of [...] done 2 days ago, here in the [facility] care, patient had a packing [...] With When Contact Information Omer Mendoza MD, [facility], MED Additional Instructions: Patient Education BMI for Adults Skin Abscess, Hagf-sc-Dvio Problem List/Past Medical History Ongoing Abscess of [...] Not Given Postpone due to refusal Normal [facility] Comment on above: Result Comment: [...] these instructions at home: Medicines ? Take evgg-iau-aaruodn and prescription medicines only as told by [...] cannot use soap and water, use hand head piece assembler. ? Check your abscess every day for signs that the infection is getting worse. Check for: ? More redness, swelling, or pain. ? More fluid or blood. ? Warmth. ? More pus or a bad smell. General instructions ? To avoid spreading the infection: ? Do not share personal care items, towels, or hot tubs with others. ? Avoid making kkdo-iv-moph contact with other people. ? Keep all [...] provider. Document Revised: 11/18/2021 Document Reviewed: 11/18/2021 [employer] Patient Education ? 2022 [employer] Nutrition BMI for Adults What is [...] numbers. This can be done either in [place] or metric measurements. Note that charts and online BMI calculators are available to help you find your BMI quickly and easily without having to do these calculations yourself. To calculate your BMI in [place] ([place] measurements: 1. Measure your weight in [...] who is (more content not included)... Normal [facility] Family Medicine Office/Clini c Noteon 10-20-2022 Family [...] with voice recognition software. Occasional wrong-word or ?hdigm-r-grcs? substitutions may have occurred due to the inherent limitations of voice recognition software. 27 yo female presents to [facility] care today with chief complaint [...] With When Contact Information Omer Mendoza MD, [facility], MED Additional Instructions: Patient Education BMI for Adults Incision and Drainage, Care After Skin Abscess, Fzre-oj-Mlja Problem List/Past Medical History Ongoing No chronic [...] Given Po (more content not included)... Normal [facility] Comment on above: Result Comment: Elec tronically Signed By: Renato LAYNE, Cristian Stanton.br\Date and Time Signed: 10/20/22 11:48 EDT No Panel InformationOrdered By: Jami Buck on 10-20-2022 GS 3+ White Blood Cells Occasional Gram Negative [facility] Patient Educationon 10-21-19 Patient Education Infectious [...] these instructions at home: Medicines ? Take qpqc-zvq-dmbpvhl and prescription medicines only as told by [...] and water are not available, use hand head piece assembler. ? Change your dressing and packing as [...] 11/21/2021 E (more content not included)... Normal [facility] Patient Letter FTon 2022 Patient [place] [facility] [address] [place] [address], [place] [address] [phone] October 20, 2022 CURRY FERRARA [address] [place] [id number] : 1995 Please excuse CURRY FERRARA from work . Date and/or Time of Absence: From: 10/20/2022 To: 10/21/2022 May return to work on: 10/21/2022 Restrictions: None Comments: Please excuse due to an acute illness. Provider Signature: Cristian Gross PA-C Physician [employer] [address] 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 Portions of this record have been created with voice recognition software. Occasional wrong-word or ?ahdea-s-dvln? 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 Patient states she tried using rezm-nhk-bjxvfqp Dermoplast with minimal relief. Has otherwise been [...] # 21 cap(s), Refills(s) 0, Pharmacy: [facility]/pharmacy #[id number], 158, cm, 10/18/22 11:02:00 EDT, Height/Length [...] # 21 cap(s), Refills(s) 0, Pharmacy: [facility]/pharmacy #[id number], 158, cm, 10/18/22 11:02:00 EDT, Height/Length Dosing, 75.2, kg, 10/18/22 11:02:00 EDT, Weight Dosing sulfamethoxazole-trim ethoprim, 1 tab(s), Oral, BID for 7 day(s), 14 tab(s), Refill(s) 0, [id number], 158, cm, 10/18/22 11:02:00 EDT, Height/Length Dosing, 75.2, kg, 10/18/22 11:02:00 EDT, Weight Dosing Follow-up With When Contact Information Omer Mnedoza MD, [facility], MED Additional Instructions: Patient Education BMI for Adults Skin Abscess, Pcak-uo-Qyym Problem List/Past Medical History Ongoing No chronic problems Historical No qualifying data Medications Bactrim D.S. 800 mg-160 mg Tab, 1 tab(s), Oral, BID Keflex 500 mg Cap, 500 mg= 1 cap(s), Oral, q8hr Allergies No Known Allergies No Known Medication Allergies Social History Tob (more content not included)... Normal [facility] Comment on above: Result Comment: [...] these instructions at home: Medicines ? Take krqe-wmd-vqjtfxj and prescription medicines only as told by [...] cannot use soap and water, use hand head piece assembler. ? Check your abscess every day for signs that the infection is getting worse. Check for: ? More redness, swelling, or pain. ? More fluid or blood. ? Warmth. ? More pus or a bad smell. General instructions ? To avoid spreading the infection: ? Do not share personal care items, towels, or hot tubs with others. ? Avoid making snzx-zq-gvii contact with other people. ? Keep all [...] provider. Document Revised: 11/18/2021 Document Reviewed: 11/18/2021 [employer] Patient Education ? 2022 [employer] Nutrition BMI for Adults What is [...] numbers. This can be done either in [place] or metric measurements. Note that charts and online BMI calculators are available to help you find your BMI quickly and easily without having to do these calculations yourself. To calculate your BMI in [place] ([place] measurements: 1. Measure your weight in [...] who is (more content not included)... Normal [facility] Vital Signs Date Time Vital Sign Value Performing Clinician Facility 04-24-2023 09:15-0500 Blood Pressure Location Cristian Gross [facility] 04-24-2023 09:15-0500 Body temperature 98.42 [degF] Cristian Gross [facility] 04-24-2023 09:15-0500 Diastolic blood pressure 76 mm[Hg] Cristian Gross [facility] 04-24-2023 09:15-0500 Heart rate 68 /min Cristian Gross [facility] 04-24-2023 09:15-0500 SaO2% (BldA) [Mass fraction] 99 % Cristian Renato [facility] 04-24-2023 09:15-0500 Systolic blood pressure 116 mm[Hg] Cristian Gross [facility] 10-22-2022 09:02-0400 Blood Pressure Location ESTRELLA LONG [facility] 10-22-2022 09:02-0400 Body temperature 98.06 [degF] HOWELL LONG [facility] 10-22-2022 09:02-0400 Diastolic blood pressure 68 mm[Hg] HOWELL LONG [facility] 10-22-2022 09:02-0400 Heart rate 95 /min HOWELL LONG [facility] 10-22-2022 09:02-0400 SaO2% (BldA) [Mass fraction] 99 % HOWELL LONG [facility] 10-22-2022 09:02-0400 Systolic blood pressure 106 mm[Hg] ESTRELLA LONG [facility] 10-20-2022 09:25-0400 Body temperature 98.6 [degF] Cristian Renato [facility] 10-20-2022 09:25-0400 Diastolic blood pressure 72 mm[Hg] Cristian Gross [facility] 10-20-2022 09:25-0400 Heart rate 100 /min Cristian Gross [facility] 10-20-2022 09:25-0400 SaO2% (BldA) [Mass fraction] 98 % Cristianngozi Sepulvedaey [facility] 10-20-2022 09:25-0400 Systolic blood pressure 102 mm[Hg] Cristianngozi Sepulvedaey [facility] 10-18-2022 10:58-0400 Blood Pressure Location Cristian Renato [facility] 10-18-2022 10:58-0400 Body temperature 98.24 [degF] Cristian Gonzalezpsey [facility] 10-18-2022 10:58-0400 Diastolic blood pressure 82 mm[Hg] Cristianngozi Gross [facility] 10-18-2022 10:58-0400 Heart rate 93 /min Cristianngozi Sepulvedaey [facility] 10-18-2022 10:58-0400 SaO2% (BldA) [Mass fraction] 99 % Cristian Renato [facility] 10-18-2022 10:58-0400 Systolic blood pressure 124 mm[Hg] Cristian Renato [facility] Encounters Encounter Date Encounter Type Care Provider Facility Start: 06-19-2023 End: 06-20-2023 ambulatory Jair Thakkar [facility] Start: 04-24-2023 End: 04-25-2023 ambulatory Cristian Gross Facility:[facility] Start: 04-24-2023 End: 04-24-2023 Patient encounter procedure Cristian Gross [facility] Start: 10-22-2022 End: 10-23-2022 ambulatory ESTRELLA LONG Facility:[facility] [place] Start: 10-22-2022 End: 10-22-2022 Patient encounter procedure ESTRELLA LONG [facility] Start: 10-20-2022 End: 10-21-2022 ambulatory Cristian Gross Facility[place] Start: 10-20-2022 End: 10-20-2022 Lab Drop off Cristian Gross [facility] Start: 10-20-2022 End: 10-20-2022 Patient encounter procedure Cristian Gross [facility] Start: 10-18-2022 End: 10-19-2022 ambulatory Cristian Gross Facility:[facility] Start: 10-18-2022 End: 10-18-2022 Patient encounter procedure Cristian Gross [facility] Start: 09-01-2022 End: 09-02-2022 ambulatory MD Omer Mendoza Facility:[facility] Start: 09-01-2022 End: 09-01-2022 Patient encounter procedure Omer Mendoza [facility] Start: 08-20-2022 ambulatory Cristian Gross Facility: [facility] Immunizations Immunization Date Immunization Notes Care Provider Nicolas eubanks NEGATED: Highlighted row has not occurred!04-24-2023 influenza virus vaccine, unspecified formulation Cristian Gross [facility] NEGATED: Highlighted row has not occurred!04-24-2023 SARS-CoV-2 mRNA (tozinameran 5y-11y) vaccine Cristian Grsos [facility] NEGATED: Highlighted row has not occurred!08-26-2023 SARS-CoV-2 mRNA (tozinammanny 5y-11y) vaccine Cristian Gross [facility] Payers Date Payer Category Payer Unknown [id number] 1995 Unknown [id number] 2.16.8 [id number] 1995 Unknown [id number] 2.16.8 [id number] 1995 Unknown [id number] 2.16.8 [id number] 1995 Unknown [id number] 2.16.8 [id number] 1995 Unknown [id number] 2.16.8 [id number] 1995 Unknown [id number] 2.16.8 [id number] 1995 Unknown [id number] 2.16.8 [id number] Social History Date Type Detail Facility Tobacco smoking status No Smokin g Status Entered [facility] [place] Sex Assigned At Female [facility] Start: 10-18-2022 End: 04-24-2023 Tobacco smoking status Never smoked tobacco (finding) [facility] Tobacco smoking status [facility] Functional Status Date Assessment Result Facility 04-24-2023 Functional Status N/A [facility] 10-22-2022 Functional Status N/A [facility] 10-20-2022 Functional Status N/A [facility] 10-18-2022 Functional Status N/A [facility] Discharge summary note 06-20-2023 Note [...] [address], [place] [address] [place] [phone] (1) Additional Instructions: Call for any problems. [facility] Comment on above: Result Comment: [...] Suite. Jair Thakkar M.D. ca Dictated: 06/19/2023 [id number] Transcribed: 06/19/2023 [facility] Comment on above: Result Comment: [...] numbers. This can be done either in [place] ([place] or metric measurements. Note that charts and online BMI calculators are available to help you find your BMI quickly and easily without having to do these calculations yourself. To calculate your BMI in [place] ([place] measurements: 1.Measure your weight in pounds [...] Centers for Disease Control and Prevention: www.cdc.gov [place] Heart Association: www.heart.org National Heart, Lung, and Blood [place]: www.nhlbi.nih.gov Summary Body mass index (BMI) is a number that is calculated from a person's weight and height. BMI may help estimate how much of a person's weight is composed of fat. BMI can help identify those who may be at higher risk for certain medical problems. BMI can be measured using [place] measurements or metric measurements. BMI charts are used to identify whether you are underweight, normal weight, overweight, or obese. This information is not intended to replace advice given to you by your health care provider. Make sure you discuss any questions you have with your health care provider. Document Revised: 11/02/2019 Document Reviewed: 09/09/2019 [employer] Patient Education 2022 [employer] 04/24/2023 09:31:49 Otitis Media With Effusion, Adult [...] few weeks. Home care treatment may include: Pidx-jkx-laxtqbt pain relievers. A warm, moist cloth placed over the ear. Severe cases may require a procedure to insert tubes in the ears (tympanostomy tubes) to drain the fluid. Follow these instructions at home: Take uadv-jeg-gyrhktg and prescription medicines only as told by [...] provider. Document Revised: 06/06/2021 Document Reviewed: 06/06/2021 [employer] Patient Education 2022 [employer] Follow Up Care 04/24/2023 08:44:27 With:Omer Mendoza MD, [facility] Address:Unknown When: Unknown [facility] Clinical Note 10-22-2022 Note [...] Locations R1: This test was performed at: [facility], [address] [place] [address], [id number] , , [facility] Comment on above: Performed By: #### 2 [id number] ####[facility] [address] [place] [address] Hospital Discharge instructions 10-22-2022 Note Date & [...] numbers. This can be done either in [place] ([place] or metric measurements. Note that charts and online BMI calculators are available to help you find your BMI quickly and easily without having to do these calculations yourself. To calculate your BMI in [place] ([place] measurements: 1.Measure your weight in pounds [...] Centers for Disease Control and Prevention: www.cdc.gov [place] Heart Association: www.heart.org National Heart, Lung, and Blood [place]: www.nhlbi.nih.gov Summary Body mass index (BMI) is a number that is calculated from a person's weight and height. BMI may help estimate how much of a person's weight is composed of fat. BMI can help identify those who may be at higher risk for certain medical problems. BMI can be measured using [place] measurements or metric measurements. BMI charts are used to identify whether you are underweight, normal weight, overweight, or obese. This information is not intended to replace advice given to you by your health care provider. Make sure you discuss any questions you have with your health care provider. Document Revised: 11/02/2019 Document Reviewed: 09/09/2019 [employer] Patient Education 2022 [employer] 10/22/2022 09:39:10 Skin Abscess, Faga-dy-Sqmi Skin Abscess A skin abscess is an [...] Follow these instructions at home: Medicines Take twwg-ljl-snhandw and prescription medicines only as told by [...] cannot use soap and water, use hand head piece assembler. Check your abscess every day for signs that the infection is getting worse. Check for: ?More redness, swelling, or pain. ?More fluid or blood. ?Warmth. ?More pus or a bad smell. General instructions To avoid spreading the infection: ?Do not share personal care items, towels, or hot tubs with others. ?Avoid making ztxf-am-udmc contact with other people. Keep all follow-up [...] provider. Document Revised: 11/18/2021 Document Reviewed: 11/18/2021 [employer] Patient Education 2022 [employer] Follow Up Care 10/22/2022 08:56:37 With:Omer Mendoza MD, [facility] Address:Unknown When: Unknown [facility] Hospital Discharge instructions 10-20-2022 [...] numbers. This can be done either in [place] or metric measurements. Note that charts and online BMI calculators are available to help you find your BMI quickly and easily without having to do these calculations yourself. To calculate your BMI in [place] ([place] measurements: 1.Measure your weight in pounds [...] Centers for Disease Control and Prevention: www.cdc.gov [place] Heart Association: www.heart.org National Heart, Lung, and Blood [place]: www.nhlbi.nih.gov Summary Body mass index (BMI) is a number that is calculated from a person's weight and height. BMI may help estimate how much of a person's weight is composed of fat. BMI can help identify those who may be at higher risk for certain medical problems. BMI can be measured using [place] measurements or metric measurements. BMI charts are used to identify whether you are underweight, normal weight, overweight, or obese. This information is not intended to replace advice given to you by your health care provider. Make sure you discuss any questions you have with your health care provider. Document Revised: 11/02/2019 Document Reviewed: 09/09/2019 [employer] Patient Education 2022 [employer] 10/20/2022 11:48:05 Incision and Drainage, Care After [...] Follow these instructions at home: Medicines Take hjpm-hlv-nsdbzvn and prescription medicines only as told by [...] and water are not available, use hand head piece assembler. Change your dressing and packing as told [...] provider. Document Revised: 11/21/2021 Document Reviewed: 11/21/2021 [employer] Patient Education 2022 [employer] 10/20/2022 11:48:04 Skin Abscess, Gkiq-il-Wngc Skin Abscess A skin abscess is an [...] Follow these instructions at home: Medicines Take kurz-knr-tsitkcc and prescription medicines only as told by [...] cannot use soap and water, use hand head piece assembler. Check your abscess every day for signs that the infection is getting worse. Check for: ?More redness, swelling, or pain. ?More fluid or blood. ?Warmth. ?More pus or a bad smell. General instructions To avoid spreading the infection: ?Do not share personal care items, towels, or hot tubs with others. ?Avoid making zbmz-cq-djpj contact with other people. Keep all follow-up [...] provider. Document Revised: 11/18/2021 Document Reviewed: 11/18/2021 [employer] Patient Education 2022 [employer] Follow Up Care 10/20/2022 09:18:08 With:Omer Mendoza MD, [facility], [facility] Address:Unknown When: Unknown [facility] Discharge instructions 10-18-2022 [...] numbers. This can be done either in [place] or metric measurements. Note that charts and online BMI calculators are available to help you find your BMI quickly and easily without having to do these calculations yourself. To calculate your BMI in [place] measurements: 1.Measure your weight in pounds [...] Centers for Disease Control and Prevention: www.cdc.gov [place] Heart Association: www.heart.org National Heart, Lung, and Blood [place]: www.nhlbi.nih.gov Summary Body mass index (BMI) is a number that is calculated from a person's weight and height. BMI may help estimate how much of a person's weight is composed of fat. BMI can help identify those who may be at higher risk for certain medical problems. BMI can be measured using [place] measurements or metric measurements. BMI charts are used to identify whether you are underweight, normal weight, overweight, or obese. This information is not intended to replace advice given to you by your health care provider. Make sure you discuss any questions you have with your health care provider. Document Revised: 11/02/2019 Document Reviewed: 09/09/2019 [employer] Patient Education 2022 [employer] 10/18/2022 11:50:00 Skin Abscess, Fwco-ui-Mdff Skin Abscess A skin abscess is an [...] Follow these instructions at home: Medicines Take qmwf-egw-eapwjaw and prescription medicines only as told by [...] cannot use soap and water, use hand head piece assembler. Check your abscess every day for signs that the infection is getting worse. Check for: ?More redness, swelling, or pain. ?More fluid or blood. ?Warmth. ?More pus or a bad smell. General instructions To avoid spreading the infection: ?Do not share personal care items, towels, or hot tubs with others. ?Avoid making njel-wn-ifgo contact with other people. Keep all follow-up [...] provider. Document Revised: 11/18/2021 Document Reviewed: 11/18/2021 [employer] Patient Education 2022 [employer] Follow Up Care 10/18/2022 10:11:54 With:Omer Mendoza MD, [facility] Address:Unknown When: Unknown [facility] Evaluation + Plan note Note Date & Type Note Facility Evaluation + Plan note No data available for this section [facility] Hospital Discharge instructions Note Date & Type Note Facility Hospital Discharge instructions No data available for this section [facility] Progress note Note Date & Type Note Facility Progress note No data available for this section [facility] Summary Purpose Family History No Family History Records Found Advance Directives No Advanced Directives Records Found Additional Source Comments Patient Care team informatio n (unrecognized section and content) Personnel Name: Omer Mendoza MD Address: Address: [address] [place] [address] Personnel Name: Omer Mendoza MD Address: Address: [address] [place] [address] Personnel Name: Omer Mendoza MD Address: Address: [address] [place] [address] Personnel Name: Omer Mendoza MD Address: Address: [address] [place] [address] Personnel Name: Omer Mendoza MD Address: Address: [address] [place] [address] Personnel Name: Omer Mendoza MD Address: Address: [address] [place] [address] INFORMATION SOURCE (unrecogn ized section and content) DATE CREATED AUTHOR 06/22/2023 [facility] FOR RECORDS PERTAINING TO PATIENTS WHO ARE [...] BE BASED ON THE PRIMARY CLINICAL RECORDS. [email or web address] [facility]. provides no warranty or guarantee of the accuracy or completeness of information in this document.
[2023-10-06 15:12] LABS: Basophils Percent Auto 0.5 % (0.2-2.0); Eosinophils Absolute Auto 0.1 10^3/uL (0.0-0.7); Eosinophils Percent Auto 1.4 % (0.9-7.0); Hematocrit 39.8 % (36.0-48.0); Hemoglobin 13.3 g/dL (12.0-16.0); Lymphocytes Absolute Auto 2.4 10^3/uL (1.2-3.8); Lymphocytes Percent Auto 35.4 % (20.5-60.0); Mean Corpuscular HGB Conc 33.4 g/dL (29.9-35.2); Mean Corpuscular Hemoglobin 29.6 pg (26.7-34.0); Mean Corpuscular Volume 88.4 fL (81.0-99.0); Mean Platelet Volume 9.6 fL (9.5-13.5); Monocytes Absolute Auto 0.4 10^3/uL (0.3-0.8); Monocytes Percent Auto 6.6 % (1.7-12.0); Neutrophils Absolute Auto 3.7 10^3/uL (1.4-6.5); Neutrophils Percent Auto 56.1 % (43.0-75.0); Platelet Count 277 10^3/uL (150-450); Red Cell Distribution Width 12.7 % (11.0-15.0); White Blood Count 6.7 10^3/uL (4.0-11.0)
[2023-10-06 15:27] LABS: Estimated Average Glucose 94 mg/dL; Glycohemoglobin A1C 4.9 % (4.5-6.2)
[2023-10-06 16:39] LABS: Thyroid Stimulating Hormone 1.231 uIU/mL (0.358-3.740)
[2023-10-06 16:40] LABS: Free T4 0.78 ng/dL (0.76-1.46)
[2023-10-06 16:45] LABS: HCG Quantitative <1 mIU/mL
[2023-10-07 04:07] LABS: FSH 5.8 mIU/mL (.); Luteinizing Hormone(LH) 8.5 mIU/mL (.)
[2023-10-10 00:08] LABS: DHEA, Serum 535 ng/dL (31-701)
== END 2023-10-06 14:55 | disposition home or self-care (01) ==
LOC: LAB 14:54
PROVIDERS: Visit Provider Obstetrics & Gynecology
DX: E28.2 Polycystic ovarian syndrome (principal); N83.9 Noninflammatory disorder of ovary, fallopian tube and broad ligament, unspecified; O00.80 Other ectopic pregnancy without intrauterine pregnancy
CPT/HCPCS: 36415; 82397; 82626; 82627; 83001; 83002; 83036; 84439; 84443; 84702; 85025

== ENCOUNTER 2025-02-06 20:06 | Outpatient (REF) | payer BC, SELFPAY ==
--- OUTSIDE RECORDS SUMMARY | 2025-02-06 15:00 | XMS_ITS | Encounter Summary ---
Author Organization [facility] Address [address] [place] [address] Care Team Providers Care Machine Stemmer Name Role Phone Alina Galdamez MD Primary Care Provider [phone] Reason for Visit * ReasonCommentsWell Women Visit Encounter Details DateTypeDepartmentCare Team (Latest Contact Info)Tschkvluqcx33/15/2025 3:00 PM ESTProcedure Visit [facility]LEX[facility] [address] [address] Sandy Weber PA [address] [place], [facility]11 Well woman exam with routine gynecological exam Social History Tobacco UseTypesPacks/DayYears UsedDateSmoking Tobacco: NeverSmokeless Tobacco: NeverAlcohol UseStandard Drinks/WeekCommentsDefer0 (1 standard drink = 0.6 oz pure alcohol)PHQ-2AnswerDate RecordedPatient Health Questionnaire-2 Score0 06/02/2024Housing Stability Vital SignAnswerDate RecordedIn the last 12 months, was there a time when you were not able to pay the mortgage or rent on time?No 11/18/2022In the last 12 months, how many places have you lived?In the last 12 months, was there a time when you did not have a steady place to sleep or slept in ashelter (including now)?No11/18/2022Humiliation, Afraid, Rape, and Kick questionnaireAnswerDate RecordedWithin the last year, have you been afraid of your partner or ex-partner?Patient /14/2025Within the last year, have you been humiliated or emotionally abused in other ways by your partner or ex-partner?Patient rzkjaxfk58/14/2025Within the last year, have you been kicked, hit, slapped, or otherwise physically hurt by your partner or ex-partner?Patient uglitijl23/14/2025Within the last year, have you been raped or forced to have any kind of sexual activity by your partner or ex-partner? Patient uaocztea02/14/2025Social Connection and Isolation PanelAnswerDate RecordedIn a typical week, how many times do you talk on the phone with family, friends, or neighbors?More than three times a week02/05/2025How often do you get together with friends or relatives?Once a week02/05/2025How often do you attend latter day or restoration services?Patient /14/2025Do you belong to any clubs or organizations such as latter day groups, unions, [employer] or athletic libby ups, or school groups?Patient mtpbzqxi62/14/2025How often do you attend meetings of the clubs or organizations you belong to?Patient xhrihlzy34/14/2025re you , , , , never , or living with a partner? Ydedbiz4402/05/2025UDIT-CAnswerDate RecordedQ1: How often do you have a drink containing alcohol?Patient vtiimwlg62/14/2025Q2: How many drinks containing alcohol do you have on a typical day when you are drinking?Patient declined 02/05/2025Q3: How often do you have six or more drinks on one occasion?Patient /14/2025Overall Financial Resource Strain (CARDIA)AnswerDate Recorded How hard is it for you to pay for the very basics like food, housing, medical care, and heating?Patient kpyyjmtt76/14/2025[employer] [employer] of Occupational Health - Occupational Stress QuestionnaireAnswerDate RecordedDo you feel stress - tense, restless, nervous, or anxious, or unable to sleep at night because your mind is troubled all the time - these days?Patient cgijmlxi19/14/2025Exercise Vital SignAnswerDate RecordedOn average, how many days per week do you engage in moderate to strenuous exercise (like a brisk walk)?4 days02/05/2025On average, how many minutes do you engage in exercise at this level?20 min02/05/2025Hunger Vital SignAnswerDate RecordedWithin the past 12 months, you worried that your food would run out before you got the money to buymore.Patient declined 02/05/2025Within the past 12 months, the food you bought just didn't last and you didn't have money to get more.Patient hourcajl73/14/2025PRAPARE - TransportationAnswerDate RecordedIn the past 12 months, has lack of transportation kept you from medical appointments or from getting medications? Patient cfutdkxu99/14/2025In the past 12 months, has lack of transportation kept you from meetings, work, or from getting things needed for daily living?Patient /14/2025Housing Stability Vital SignAnswerDate RecordedIn the last 12 months, was there a time when you were not able to pay the mortgage or rent on time?Patient /14/2025Number of Times Moved in the Last YearNot on file 02/05/2025t any time in the past 12 months, were you homeless or living in a care home (including now)?Patient xyuizhcf63/14/7029R2756 Health LiteracyAnswer Date RecordedHow often do you need to have someone help you when you read instructions, pamphlets, or other written material from your doctor or pharmacy? Patient declines to gocjrvw9302/05/2025CommentsNoSex and Gender InformationValueDate RecordedSex Assigned at BirthNot on fileLegal SexFemale 08/19/2022 8:16 PM EDTGender TsrcidisLyzgmw90/25/2023 11:23 AM EDTSexual OrientationNot on filedocumented as of this encounter Last Filed Vital Signs Vital SignReadingTime TakenCommentsBlood Sozivxwe393/80104/09/2024 3:31 PM EST Pulse--Temperature--Respiratory Rate--Oxygen Saturation--Inhaled Oxygen Concentration--Yezbwe68.3 kg (139 lb 8 oz)02/06/2025 3:31 PM ESTHeight--Body Mass Index26.3604 11:18 AM EDTdocumented in this encounter Progress Notes * MARIBELL Dowd - 02/06/2025 3:00 PM EST Reason for Appointment: Patient ID: Lia Bryant is a 29 y.o. female who presents for Well Women Visit Patient presents today for Annual Exam. MEDICATIONS Current Outpatient Medications Medication Instructions fluticasone (Flonase) 50 MCG/ACT nasal spray 1 spray, 2 times daily Semaglutide-Weight Management 0.5 mg, Subcutaneous, Weekly sertraline (ZOLOFT) 25 mg, Oral, Daily ALLERGIES No Known Allergies PROBLEMS Active Ambulatory Problems Diagnosis Date Noted PCOS (polycystic ovarian syndrome) 12/17/2023 Bartholin cyst 12/17/2023 Follow-up exam 12/17/2023 Resolved Ambulatory Problems Diagnosis Date Noted No Resolved Ambulatory Problems Past Medical History: Diagnosis Date Urinary tract infection HISTORY PAST MEDICAL HISTORY SOCIAL HISTORY Past Medical History: Diagnosis Date Urinary tract infection Social History Tobacco Use Smoking status: Never Smokeless tobacco: Never Substance Use Topics Alcohol use: Defer Drug use: Never FAMILY HISTORY Family History Problem Relation Name Age of Onset Hypertension Maternal Grandfather GP Diabetes Maternal Grandmother GP Diabetes Brother T SURGICAL HISTORY Past Surgical History: Procedure Laterality Date SECTION, LOW TRANSVERSE 11/12/17 01/01/20 DILATION AND CURETTAGE OF UTERUS 01/12/2023 SALPINGECTOMY REVIEW OF SYSTEMS Review of Systems: Review of Systems Constitutional: Negative. HENT: Negative. Eyes: Negative. Respiratory: Negative. Cardiovascular: Negative. Gastrointestinal: Negative. Genitourinary: Negative. Musculoskeletal: Negative. Skin: Negative. Neurological: Negative. All other systems reviewed and are negative. Hematological: Negative. Endocrine: Negative. Allergic/Immunologic: Negative. OBJECTIVE Objective: Physical Exam Constitutional: Appearance: Normal appearance. She is well-developed. Genitourinary: Vulva normal. Right Adnexa: not tender and no mass present. Left Adnexa: not tender and no mass present. No cervical discharge. Breasts: Breasts are soft. Right: Normal. Left: Normal. HENT: Head: Normocephalic. Nose: Nose normal. Mouth/Throat: Mouth: Mucous membranes are moist. Cardiovascular: Rate and Rhythm: Normal rate and regular rhythm. Pulmonary: Effort: Pulmonary effort is normal. Breath sounds: Normal breath sounds. Abdominal: General: Bowel sounds are normal. There is no distension. Palpations: Abdomen is soft. Tenderness: There is no abdominal tenderness. There is no guarding or rebound. Musculoskeletal: General: No swelling. Normal range of motion. Cervical back: Normal range of motion. Right lower leg: No edema. Left lower leg: No edema. Neurological: General: No focal deficit present. Mental Status: She is alert and oriented to person, place, and time. Skin: General: Skin is warm and dry. Psychiatric: Mood and Affect: Mood normal. Behavior: Behavior normal. Vitals and nursing note reviewed. Exam conducted with a registered nurse teacher present. Vitals: Estimated body mass index is 26.36 kg/m?? as calculated from the following: Height as of 25: 5' 1 . Weight as of this encounter: 139 lb 8 oz. BP: 126/80 Patient's last menstrual period was 01/31/2025. Assessment/Plan ICD-10-CM 1. Well woman exam with routine gynecological exam Z01.419 Pap Smear Assessment/Plan Annual Exam: Patient presents today for an annual exam. Patient states she is doing well and has no complaints. Pap was obtained without difficulty. No orders of the defined types were placed in this encounter. Follow Up: Patient is to return in one year for annual unless needed otherwise. Documented by Philly Pinzon MA on behalf of: MARIBELL Dowd documented in this encounter Plan of Treatment DateTypeDepartmentCare Team (Latest Contact Info)Jepidieaudl26/19/2025 9:00 AM ESTOffice Visit [facility] [address] [place] [id number] Alina Galdamez MD [address] [place] [address] 02/26/2026 9:00 AM ESTProcedure Visit [facility] [address] [place] [address] Sandy Weber PA [address] [place] [address] NameTypePriorityAssociated DiagnosesOrder SchedulePap SmearPathology and CytologyRoutine Well woman exam with routine gynecological exam Ordered: 02/06/2025documented as of this encounter Procedures Procedure NamePriorityDate/TimeAssociated DiagnosisCommentsPAP TEST, EXTERNAL Ufzvbry0203/10/2023 12:00 AM ESTdocumented in this encounter Results * PAP TEST, EXTERNAL (03/10/2023 12:00 AM EST) Narrative Authorizing ProviderResult TypeResult StatusAmy [place] [facility] ORDERABLES Final ResultPerforming OrganizationAddressCity/State/ZIP CodePhone Number EXTERNAL LAB documented in this encounter Visit Diagnoses Diagnosis Well woman exam with routine gynecological exam Routine gynecological examination documented in this encounter Care Teams Team MemberRelationshipSpecialtyStart DateEnd Date Alina Galdamez MD [address] [place] [address] PCP - GeneralFamily Stxckurt45/11/24documented as of this encounter
--- OUTSIDE RECORDS SUMMARY | 2025-02-06 20:11 | XMS_ITS | Patient Health Record ---
Author Organization [facility] Address [address] [place] [address] Care Team Providers Care Security Operations Center Analyst Name Role Phone Dhiraj Le Primary Care Provider Unavailab eJss Loja Unavailable [phone] Reason For Referral No Information Medications Medication SIG (Take, Route, Frequency, Duration) Notes Start Date End Date Status Amoxicillin 500 mg 1 tablet Orally twice a day ( bid); Duration: 10 days 12/30/2012ctive Immunizations Vaccine Route Administration Date Status Comme nts Influenza (Fluvirin) Unknown 11/22/2018 Administered Plan Of Treatment No Information Insurance Providers Payer Name Payer Address Payer Phone Subscriber Number Group Number Insured Name Patient Relationship to Insured Coverage Start Date Coverage End Date [facility] [address] [address] [place], [place] [id number] [phone] [id number] Lia Bryant Self - patient is the insured 9
--- OUTSIDE RECORDS SUMMARY | 2025-02-06 20:11 | XMS_ITS | Clinical Summary ---
Author Organization [facility] Address [address] [facility] [facility] [place] [address] Care Team Providers Care Log Operations Coordinator Name Role Phone Alina Galdamez MD Primary Care Provider [phone] Allergies No known active allergies Medications MedicationSigDispense QuantityRefillsLast FilledStart DateEnd DateStatus sertraline (Zoloft) 25 MG tablet Indications:AnxietyTake 1 tablet (25 mg) by mouth Daily 30 tablet 1114Active Additional Information Patient not taking.Reported on 06/02/2024 Semaglutide-Weight Management 0.25 MG/0.5ML solution auto-injector Indications:BMI 30.0-30.9,adultInject 0.5 mg under the skin 1 (one) time per week 2 mL 5Active fluticasone (Flonase) 50 MCG/ACT nasal spray Administer 1 spray into each nostril in the morning and 1 spray before bedtime. 4Active Active Problems ProblemNoted DateDiagnosed DatePCOS (polycystic ovarian syndrome)12/17/2023 Bartholin cyst12/17/2023Follow-up exam12/17/2023 Encounters DateTypeDepartmentCare CepbDtdpdmtzzzr46/15/2025 3:00 PM ESTProcedure Visit [facility] [address] [place] [address] Sandy Weber PA Well woman exam with routine gynecological exam02/06/2025amboo flowsheet [facility] [address] [place] [address] Sandy Weber PA 02/05/2025Travelfrom Last 3 Months Family History Medical HistoryRelationNameCommentsDiabetesBrotherTHypertensionMaternal GrandfatherGPDiabetesMaternal GrandmotherGPRelationNameStatusCommentsBrotherT Maternal GrandfatherGPMaternal GrandmotherGP Social History Tobacco UseTypesPacks/DayYears UsedDateSmoking Tobacco: NeverSmokeless Tobacco: Never Tobacco Cessation:Counseling Given: Not Answered Alcohol UseStandard Drinks/WeekCommentsDefer0 (1 standard drink = 0.6 oz pure alcohol)PHQ-2AnswerDate RecordedPatient Health Questionnaire-2 [id number] Housing Stability Vital SignAnswerDate RecordedIn the last 12 months, was there a time when you were not able to pay the mortgage or rent on time?No11/18/2022In the last 12 months, how many places have you lived?In the last 12 months, was there a time when you did not have a steady place to sleep or slept in [facility] (including now)?No11/18/2022Humiliation, Afraid, Rape, and Kick questionnaireAnswerDate RecordedWithin the last year, have you been afraid of your partner or ex-partner?Patient /14/2025Within the last year, have you been humiliated or emotionally abused in other ways by your partner or ex-partner?Patient /14/2025Within the last year, have you been kicked, hit, slapped, or otherwise physically hurt by your partner or ex-partner?Patient rthkinma09/14/2025Within the last year, have you been raped or forced to have any kind of sexual activity by your partner or ex-partner?Patient declined 02/05/2025Social Connection and Isolation PanelAnswerDate RecordedIn a typical week, how many times do you talk on the phone with family, friends, or neighbors?More than three times a week02/05/2025How often do you get together with friends or relatives?Once a week02/05/2025How often do you attend religious or congregational services?Patient lbkhtrta43/14/2025Do you belong to any clubs or organizations such as religious groups, unions, fraternal or athletic groups, or school groups?Patient mggtqxde60/14/2025How often do you attend meetings of the clubs or organizations you belong to?Patient /14/2025re you , , , , never , or living with a partner? 02/05/2025UDIT-CAnswerDate RecordedQ1: How often do you have a drink containing alcohol?Patient erphefux26/14/2025Q2: How many drinks containing alcohol do you have on a typical day when you are drinking?Patient /14/2025Q3: How often do you have six or more drinks on one occasion?Patient veejumlk18/14/2025 Overall Financial Resource Strain (CARDIA)AnswerDate RecordedHow hard is it for you to pay for the very basics like food, housing, medical care, and heating? Patient lmykluzc46/14/2025Fin[facility] [place] of Occupational Health - Occupational Stress QuestionnaireAnswerDate RecordedDo you feel stress - tense, restless, nervous, or anxious, or unable to sleep at night because yourmind is troubled all the time - these days?Patient zzynvtka92/14/2025Exercise Vital Sign AnswerDate RecordedOn average, how many days per week do you engage in moderate to strenuous exercise (like a brisk walk)?4 days02/05/2025On average, how many minutes do you engage in exercise at this level?20 min02/05/2025Hunger Vital SignAnswerDate RecordedWithin the past 12 months, you worried that your food would run out before you got the money to buymore.Patient qermutlf40/14/2025 Within the past 12 months, the food you bought just didn't last and you didn't have money to get more.Patient fbeksrxl33/14/2025PRAPARE - TransportationAnswer Date RecordedIn the past 12 months, has lack of transportation kept you from medical appointments or from getting medications?Patient ymquazvp32/14/2025In the past 12 months, has lack of transportation kept you from meetings, work, or from getting things needed for daily living?Patient afgsbueq79/14/2025Housing Stability Vital SignAnswerDate RecordedIn the last 12 months, was there a time when you were not able to pay the mortgage or rent on time?Patient declined 02/05/2025Number of Times Moved in the Last YearNot on file5At any time in the past 12 months, were you homeless or living in a jail (including now)? Patient /14/1845Z0523 Health LiteracyAnswerDate RecordedHow often do you need to have someone help you when you read instructions, pamphlets, or other written material from your doctor or pharmacy?Patient declines to respond 02/05/2025CommentsNoSex and Gender InformationValueDate RecordedSex Assigned at BirthNot on fileLegal KbnQvcprm00/27/2023 8:16 PM EDTGender Identity Ehpgig7011/17/2022 11:23 AM EDTSexual OrientationNot on file Last Filed Vital Signs Vital SignReadingTime TakenCommentsBlood Pbsxrinu784/80104/09/2024 3:31 PM EST Nvepf596506/02/2024 11:18 AM FBAGtrbsjfrmkh79.9 ??C (98.5 ??F)06/02/2024 11:18 AM EDTRespiratory Rate--Oxygen Ttgnlogpky23%06/02/2024 11:18 AM EDTInhaled Oxygen Concentration--Nfvnpo86.3 kg (139 lb 8 oz)02/06/2025 3:31 PM UKLFeooze089.9 cm (5' 1 )06/02/2024 11:18 AM EDTBody Mass Index26.36006/02/2024 11:18 AM EDT Plan of Treatment DateTypeDepartmentCare Team (Latest Contact Info)Wzxfxhgujfk72/19/2025 9:00 AM ESTOffice Visit [facility] [address] [place] [phone] Alina Galdamez MD [address] [place] [address] 02/26/2026 9:00 AM ESTProcedure Visit [facility] [address] [place] [phone] Sandy Weber PA [address] [place] [address] Health MaintenanceDue DateLast DoneCommentsCOVID-19 Vaccine ( season) , 03/22/2020, 02/23/2020Influenza Vaccine (#1)2024 12/14/2020, 11/22/2019Pneumococcal Vaccine: Pediatrics (0 to 5 Years) and At- Risk Patients (6 to 64 Years)Aged OutNo longer eligible based on patient's age to complete this topic Insurance Care Teams Team MemberRelationshipSpecialtyStart DateEnd Date Alina Galdamez MD [address] [place] [address] PCP - GeneralFamily Uwqvnmtf83/11/24
--- OUTSIDE RECORDS SUMMARY | 2025-02-06 20:11 | XMS_ITS | Patient Health Record ---
Author Organization [facility] Billing Info Address [address] [place] [address] Phone [phone] Care Team Providers Care Programmer Engineering And Scientific Name Role Phone REGISTER MELONY SANTOS Unavailable Reason For Referral No Information Medications Medication SIG (Take, Route, Frequency, Duration) Notes Start Date End Date Diagnosis (ICD Code) Status Xulane 150-35 MCG/24HR Patch Weekly 1 pa tch to skin off 1 week then repeat on the same day every week Transdermal weekly; Duration: 90 days 02/06/2020Encounter for visit (ICD_10 - Z39.2)ActiveAspir-81Active PrenatalActive Immunizations Status Vaccine Route Administration Date Visit Date Comments Administered zFLU 4V (FLUZONE MENDEZ D), 6MO+ (0.5 ML), NO PRES - ALL PAYORS IM Intramuscular 11/22/2019 [facility] [id number] (BOOSTRIX)IM Oemtkpbnwinwz56/20/2020[facility] [id number] Social History Sex Observation Social History Observation Description Sex Observation Female Status Status Date(s) Date Recorded:06/14/2019 MIRIAN Date:12/25/2019 Social History Social HistorySocial InfoQuestionAnswerNotesTobacco Status:Patient daniele non tobacco userIllicit Drug Use:Patient/Family reports:No illicit drug useAlcohol Use:Patientdoes not use alcohol*DO NOT USE * Tobacco Status (CQW):Patient is Never smokerAdditional DetailsCategorySocial InfoOptionsDetailsSocial History Marital Status:MarriedDrugs:none Problems Problem Type SNOMED Code ICD Code Dates Problem Status W/U Sta tus Risk Notes Problem Mitral valve prolapse (253421703) Mitral valve prolapse (I34.1) Added On:06/14/2019 Active confirmed ProblemHistory of gestational hypertension (507562625)History of gestational hypertension (Z87.59) Added On:08/15/2019 ActiveconfirmedProblemHistory of section (498124000)History of delivery (Z98.891) Added On:08/15/2019 Activeconfirmed Plan Of Treatment No Information Insurance Providers Payer Name Payer Address Payer Phone Subscriber Number Group Number Insured Name Patient Relationship to Insured Coverage Start Date Coverage End Date [facility] [address] [address] [place], [place] [id number] Lia Bryant Self - patient is the insured 0 0 Medical (General) History Medical History History ICD Code Mitral Valve Prolapse Surgical History Surgery Date(Month/Year) Section Hospitalization History Reason Date(Month/Year) see above
--- OUTSIDE RECORDS SUMMARY | 2025-02-06 20:11 | XMS_ITS | Encounter Summary ---
Author Organization [facility] Address [address] [place] [address] Care Team Providers Care Tinner Helper Name Role Phone Alina Galdamez MD Primary Care Provider [phone] Encounter Details DateTypeDepartmentCare Team (Latest Contact Info)Lnfiymrkdyt76/14/2025Travel Social History Tobacco UseTypesPacks/DayYears UsedDateSmoking Tobacco: NeverSmokeless [...] steady place to sleep or slept [facility] ([facility] now)?No11/18/2022Humiliation, Afraid, Rape, and Kick questionnaireAnswerDate RecordedWithin the last year, have you been afraid of your partner or ex-partner?Patient ryercuwh49/14/2025Within the last year, have you been humiliated or emotionally abused in other ways by your partner or ex-partner?Patient mhwsafpi65/14/2025Within the last year, have you been kicked, hit, slapped, or otherwise physically hurt by your partner or ex-partner?Patient jmxgkany76/14/2025Within the last year, have you been raped or forced to have any kind of sexual activity by your partner or ex-partner? Patient pberfgef70/14/2025Social Connection and Isolation PanelAnswerDate RecordedIn a typical week, how many times do you talk on the phone with family, friends, or neighbors?More than three times a week02/05/2025How often do you get together with friends or relatives?Once a week02/05/2025How often do you attend pentecostal or buddhist services?Patient nflxaqdy57/14/2025Do you belong to any clubs or organizations such as pentecostal groups, unions, [employer] or athletic libby ups, or school groups?Patient myouzcsp45/14/2025How often do you attend meetings of the clubs or organizations you belong to?Patient gsffaifk61/14/2025re you , , , , never , or living with a partner? Gzpcpfl4302/05/2025UDIT-CAnswerDate RecordedQ1: How often do you have a drink containing alcohol?Patient zlxweupx26/14/2025Q2: How many drinks containing alcohol do you have on a typical day when you are drinking?Patient declined 02/05/2025Q3: How often do you have six or more drinks on one occasion?Patient hxfwhdtu42/14/2025Overall Financial Resource Strain (CARDIA)AnswerDate Recorded How hard is it for you to pay for the very basics like food, housing, medical care, and heating?Patient lonulvmy16/14/2025[facility] [place] [facility] - Occupational Stress QuestionnaireAnswerDate RecordedDo you feel stress - tense, restless, nervous, or anxious, or unable to sleep at night because your mind is troubled all the time - these days?Patient zoporccw16/14/2025Exercise Vital SignAnswerDate RecordedOn average, how many days [...] you didn't have money to get more.Patient qrdagwug50/14/2025PRAPARE - TransportationAnswerDate RecordedIn the past 12 months, has lack of transportation kept you from medical appointments or from getting medications? Patient hqumhfik71/14/2025In the past 12 months, has lack of transportation kept you from meetings, work, or from getting things needed for daily living?Patient gdoqpnft50/14/2025Housing Stability Vital SignAnswerDate RecordedIn the last 12 months, was there a time when you were not able to pay the mortgage or rent on time?Patient vhwajgwi72/14/2025Number of Times Moved in the Last YearNot on file 02/05/2025t any time in the past 12 months, were you homeless or living in a fdc (including now)?Patient xidexerc37/14/5768T2340 Health LiteracyAnswer Date RecordedHow often do you need to have someone help you when you read instructions, pamphlets, or other written material from your doctor or pharmacy? Patient declines to jkikano6302/05/2025CommentsNoSex and Gender InformationValueDate RecordedSex Assigned at BirthNot on fileLegal SexFemale 08/19/2022 8:16 PM EDTGender IdfjpsdpRmfagu44/25/2023 11:23 AM EDTSexual OrientationNot on filedocumented as of this encounter Functional Status * AUDIT-C ScoreAnswerDate of AssessmentAuthor- 3:07 PM ESTMychart, Generic * Q1: How often do you have a drink containing alcohol?AnswerDate of Assessment AuthorPatient lifmlfay37/14/2025 3:07 PM ESTMychart, Generic * Q2: How many drinks containing alcohol do you have on a typical day when you are drinking?AnswerDate of AssessmentAuthorPatient eemvbcxl73/14/2025 3:07 PM ESTMychart, Generic * Q3: How often do you have six or more drinks on one occasion?AnswerDate of AssessmentAuthorPatient ujwgnbnr73/14/2025 3:07 PM ESTMychart, Generic documented as of this encounter Plan of Treatment DateTypeDepartmentCare Team (Latest Contact Info)Sglmkdxevuf37/19/2025 9:00 AM ESTOffice Visit [facility] [address] [place] [address] Alina Galdamez MD [address] [place] [address] 02/26/2026 9:00 AM ESTProcedure Visit [facility] [address] [place] [address] Sandy Weber PA [address] [facility] [address] [address] documented as of this encounter Visit Diagnoses Not on filedocumented in this encounter Care Teams Team MemberRelationshipSpecialtyStart DateEnd Date Alina Galdamez MD [address] [place] [address] PCP - GeneralFamily Wmdcztdm04/11/24documented as of this encounter
--- OUTSIDE RECORDS SUMMARY | 2025-02-06 20:11 | XMS_ITS | Encounter Summary ---
Author Organization [facility] Address [address] [facility] [place] [address] Care Team Providers Care Distance Education Director Name Role Phone Alina Galdamez MD Primary Care Provider [phone] Encounter Details DateTypeDepartmentCare Team (Latest Contact Info)Ddhgclqnshl66/15/2025amboo flowsheet [facility] [address] [address] Sandy Weber PA [address] [place] [address] Social History Tobacco UseTypesPacks/DayYears UsedDateSmoking Tobacco: NeverSmokeless [...] steady place to sleep or slept in [place] (including now)?No11/18/2022Humiliation, Afraid, Rape, and Kick questionnaireAnswerDate RecordedWithin the last year, have you been afraid of your partner or ex-partner?Patient avznrieu11/14/2025Within the last year, have you been humiliated or emotionally abused in other ways by your partner or ex-partner?Patient qmmifkbh77/14/2025Within the last year, have you been kicked, hit, slapped, or otherwise physically hurt by your partner or ex-partner?Patient /14/2025Within the last year, have you been raped or forced to have any kind of sexual activity by your partner or ex-partner? Patient robvhbta43/14/2025Social Connection and Isolation PanelAnswerDate RecordedIn a typical week, how many times do you talk on the phone with family, friends, or neighbors?More than three times a week02/05/2025How often do you get together with friends or relatives?Once a week02/05/2025How often do you attend pentecostal or confucianism services?Patient /14/2025Do you belong to any clubs or organizations such as pentecostal groups, unions, [employer] or athletic libby ups, or school groups?Patient dcvbhiub78/14/2025How often do you attend meetings of the clubs or organizations you belong to?Patient bcieokvp36/14/2025re you , , , , never , or living with a partner? Uvnihvw2302/05/2025UDIT-CAnswerDate RecordedQ1: How often do you have a drink containing alcohol?Patient hvaxqpxz45/14/2025Q2: How many drinks containing alcohol do you have on a typical day when you are drinking?Patient declined 02/05/2025Q3: How often do you have six or more drinks on one occasion?Patient /14/2025Overall Financial Resource Strain (CARDIA)AnswerDate Recorded How hard is it for you to pay for the very basics like food, housing, medical care, and heating?Patient dwybykys63/14/2025[facility] [place] [facility] Occup[facility] - Occupational Stress QuestionnaireAnswerDate RecordedDo you feel stress - tense, restless, nervous, or anxious, or unable to sleep at night because your mind is troubled all the time - these days?Patient erwyghxi37/14/2025Exercise Vital SignAnswerDate RecordedOn average, how many days [...] you didn't have money to get more.Patient liyqivvt10/14/2025PRAPARE - TransportationAnswerDate RecordedIn the past 12 months, has lack of transportation kept you from medical appointments or from getting medications? Patient vqfxyjvh51/14/2025In the past 12 months, has lack of transportation kept you from meetings, work, or from getting things needed for daily living?Patient seppixpk65/14/2025Housing Stability Vital SignAnswerDate RecordedIn the last 12 months, was there a time when you were not able to pay the mortgage or rent on time?Patient xuamqdcn95/14/2025Number of Times Moved in the Last YearNot on file 02/05/2025t any time in the past 12 months, were you homeless or living in a fdc (including now)?Patient ewhuasnt96/14/1538O2310 Health LiteracyAnswer Date RecordedHow often do you need to have someone help you when you read instructions, pamphlets, or other written material from your doctor or pharmacy? Patient declines to nwfpmvm3302/05/2025CommentsNoSex and Gender InformationValueDate RecordedSex Assigned at BirthNot on fileLegal SexFemale 08/19/2022 8:16 PM EDTGender JflkipgzQeeoxp95/25/2023 11:23 AM EDTSexual OrientationNot on filedocumented as of this encounter Plan of Treatment DateTypeDepartmentCare Team (Latest Contact Info)Fplguiorwii04/19/2025 9:00 AM ESTOffice Visit [facility] [address] [place] [address] Alina Galdamez MD [address] [place] [address] 02/26/2026 9:00 AM ESTProcedure Visit [facility] [address] [place] [address] [place] [address] Sandy Weber PA [address] [place] [address] [place] [address] documented as of this encounter Visit Diagnoses Not on filedocumented in this encounter Care Teams Team MemberRelationshipSpecialtyStart DateEnd Date Alina Galdamez MD [address] [place] [address] PCP - GeneralFamily Fwxwxnji08/11/24documented as of this encounter
== END 2025-02-06 20:07 | disposition home or self-care (01) ==
LOC: LAB 20:06
PROVIDERS: Visit Provider Physician Assistant
DX: Z01.419 Encounter for gynecological examination (general) (routine) without abnormal findings (principal)
CPT/HCPCS: 88175